=== PATIENT | female | born 1975 | race Caucasian/White ===

== ENCOUNTER 2017-08-30 11:53 | Emergency (ER) | payer BC, OTHER ==
[~2017-08-30] VITALS: Ht 167.6 cm; Wt 117.9 kg
[2017-08-30] MEDS ORDERED: meTOproloL SUCCINATE 50 MG (TOPROL XL) TAB PO SCH (12:15)
[2017-08-30] MEDS ORDERED: cloNIDine 0.1 MG (CATAPRES) TAB PO ONE (12:15)
--- NOTE | 2017-08-30 12:17 | ED Cardiac General ---
History of Present Illness General Chief Complaint: Cardiac/General Problems Stated Complaint: DIZZINESS,HIGH BP History of Present Illness Date Seen by Provider: Aug 30, 2017 Time Seen by Provider: 12:00 Initial Comments 42-year-old female reports feeling the at work. She works at [employer], the aide took her blood pressure and it was 210/130, Accu-Chek was 106. She has no history of hypertension or cardiac diagnoses. She has history of PCO S and thyroid disorder. She is managed by primary care physician in [place], [place]. She's had no previous symptoms similar to this. She did fill symptoms of a sinus infection and started Delsym and Mucinex this morning. 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 children, she is currently going through [employer] for adoption.) NTG SL CHILD AND FAMILY SERVICES WORKER: No ASA po CHILD AND FAMILY SERVICES WORKER: No Associated Systoms: Diaphoresis, Nausea/Vomiting, Syncope, Weakness Allergies and Home Medications Allergies Coded Allergies: gluten (Verified Allergy, Mild, 08/30/17) Review of Systems Constitutional: see HPI, diaphoresis, dizziness, malaise, weakness EENTM: See HPI, Nose Congestion Respiratory: See HPI, Cough Cardiovascular: See HPI, Lightheadedness, Syncope Gastrointestinal: No Symptoms Reported, See HPI Genitourinary: No Symptoms Reported, See HPI Musculoskeletal: no symptoms reported, see HPI Skin: no symptoms reported, see HPI Psychiatric/Neurological: See HPI, Other (increased stress) Endocrine: See HPI, Other (history of easy OS) All Other Systems Reviewed Negative Unless Noted: Yes Past Ocsyyqx-Oanjaa-Wrgxay Hx Patient Social History Recent Foreign Travel: No Contact w/Someone Who Travel: No Reviewed Nursing Assessment Reviewed/Agree w Nursing PMH: Yes Physical Exam Vital Signs Vital Signs - First Documented 08/30/17 08/30/17 12:10 13:46 Temp 97.7 Pulse 97 Resp 20 B/P (MAP) 189/111 (137) Pulse Ox 99 O2 Delivery Room Air Capillary Refill : General Appearance: WD/WN, Anxious HEENT: PERRL/EOMI, TMs Normal, Normal ENT Inspection, Pharynx Normal Neck: Full Range of Motion, Normal Inspection, Non Tender, Supple Respiratory: Chest Non Tender, Lungs Clear, Normal Breath Sounds Cardiovascular: Regular Rate, Rhythm, No Edema, No Murmur Gastrointestinal: Normal Bowel Sounds, Non Tender, Soft Extremity: Normal Capillary Refill, Normal Inspection, Normal Range of Motion, No Pedal Edema Neurologic/Psychiatric: Alert, Oriented x3, No Motor/Sensory Deficits, Normal Mood/Affect Skin: Normal Color, Warm/Dry Progress/Results/Core Measures Results/Orders Lab Results Laboratory Tests Test 08/30/17 12:10 Range/Units White Blood Count 15.5 H 4.3-11.0 10^3/uL Red Blood Count 4.60 4.35-5.85 10^6/uL Hemoglobin 14.4 11.5-16.0 G/DL Hematocrit 42 35-52 % Mean Corpuscular Volume 90 80-99 FL Mean Corpuscular Hemoglobin 31 25-34 PG Mean Corpuscular Hemoglobin Concent 35 32-36 G/DL Red Cell Distribution Width 13.0 10.0-14.5 % Platelet Count 355 130-400 10^3/uL Mean Platelet Volume 9.2 7.4-10.4 FL Neutrophils (%) (Auto) 66 42-75 % Lymphocytes (%) (Auto) 25 12-44 % Monocytes (%) (Auto) 7 0-12 % Eosinophils (%) (Auto) 2 0-10 % Basophils (%) (Auto) 0 0-10 % Neutrophils # (Auto) 10.3 H 1.8-7.8 X 10^3 Lymphocytes # (Auto) 3.9 1.0-4.0 X 10^3 Monocytes # (Auto) 1.1 H 0.0-1.0 X 10^3 Eosinophils # (Auto) 0.3 0.0-0.3 10^3/uL Basophils # (Auto) 0.0 0.0-0.1 10^3/uL Neutrophils % (Manual) 65 % Lymphocytes % (Manual) 26 % Monocytes % (Manual) 6 % Eosinophils % (Manual) 1 % Basophils % (Manual) 0 % Band Neutrophils 1 % Reactive Lymphocytes 1 % Blood Morphology Comment NORMAL Prothrombin Time 14.0 12.2-14.7 SEC INR Comment 1.1 0.8-1.4 Activated Partial Thromboplast Time 29 24-35 SEC Sodium Level 138 135-145 MMOL/L Potassium Level 4.1 3.6-5.0 MMOL/L Chloride Level 104 98-107 MMOL/L Carbon Dioxide Level 25 21-32 MMOL/L Anion Gap 9 5-14 MMOL/L Blood Urea Nitrogen 11 7-18 MG/DL Creatinine 0.85 0.60-1.30 MG/DL Estimat Glomerular Filtration Rate > 60 BUN/Creatinine Ratio 13 Glucose Level 80 70-105 MG/DL Calcium Level 9.3 8.5-10.1 MG/DL Magnesium Level 2.3 1.8-2.4 MG/DL Total Bilirubin 0.3 0.1-1.0 MG/DL Aspartate Amino Transf (AST/SGOT) 26 5-34 U/L Alanine Aminotransferase (ALT/SGPT) 31 0-55 U/L Alkaline Phosphatase 63 40-136 U/L Myoglobin 32.8 10.0-92.0 NG/ML Troponin I < 0.30 <0.30 NG/ML Total Protein 8.1 6.4-8.2 GM/DL Albumin 4.4 3.2-4.5 GM/DL TSH Merrick Testing 0.67 0.35-4.94 UIU/ML My Orders Orders - JED ROMERO Cbc With Automated Diff (08/30/17 12:10) Magnesium (08/30/17 12:10) Chest 1 View, Ap/Pa Only (08/30/17 12:10) Ekg Tracing (08/30/17 12:10) Cardiac Profile 1 (08/30/17 12:10) Comprehensive Metabolic Panel (08/30/17 12:10) Myoglobin Serum (08/30/17 12:10) Protime With Inr (08/30/17 12:10) Partial Thromboplastin Time (08/30/17 12:10) Monitor-Rhythm Ecg Trace Only (08/30/17 12:10) Saline Lock/Iv-Start (08/30/17 12:10) Thyroid Analyzer (08/30/17 12:13) Clonidine Tablet (Catapres Tablet) (08/30/17 12:15) Metoprolol Succinate (Xl) Tab (Toprol Xl (08/30/17 12:15) Aspirin Chewable Tablet (Baby Aspirin Ch (08/30/17 12:30) Manual Differential (08/30/17 12:10) Medications Given in ED Current Medications Medications Dose Ordered Sig/Robby Route Start Time Stop Time Status Last Admin Dose Admin Aspirin 324 mg ONCE ONCE PO 08/30/17 12:30 08/30/17 12:31 DC 08/30/17 12:33 324 MG Clonidine HCl 0.1 mg ONCE ONCE PO 08/30/17 12:15 08/30/17 12:16 DC 08/30/17 12:20 0.1 MG Vital Signs/I&O Vital Sign - Last 12Hours 08/30/17 08/30/17 08/30/17 12:10 12:33 13:46 Temp 97.7 97.7 97.7 Pulse 97 76 Resp 20 20 B/P (MAP) 189/111 (137) 123/67 (137) Pulse Ox 99 O2 Delivery Room Air Room Air Progress Note : Time: 12:00 Progress Note Initial evaluation completed, recommended labs, EKG, aspirin 324 mg and monitoring. 1245 initial labs all essentially normal. A pressure continues to the elevated will give Metroprolol 50 mg by mouth and clonidine 0.1 mg 1315 B/P 120s/80s. Discussed all results with the patient. She does report extreme stress related to that legal system and adoption of her foster children. We discussed stress reduction activities. Encouraged her to follow up with her primary care provider, as he currently prescribes Valium for her to use and there may be more long-term options that she could take for the anxiety and stress. Discharge planning and return precautions reviewed with the patient in detail. All questions answered. ECG Initial ECG Impression Date: Aug 30, 2017 Initial ECG Impression Time: 12:02 Initial ECG Rate: 83 Initial ECG Rhythm: Normal Sinus Initial ECG Intervals: Normal Initial ECG Intervals WI 132, QRS D 84, QT 368, QTC 433. [place] P 23, QRS 36, T 30. Initial ECG Impression: Normal Initial ECG Comparisson: No Previous ECG Available Comment Reviewed with Dr. Colon, concurred with interpretation. Diagnostic Imaging Diagonstic Imaging: Xray Plain Films/CT/US/NM/MRI: chest Comments NAME: MENG WALLER MED REC#: [id number] PT STATUS: REG ER : 1975 PHYSICIAN: JED ROMERO ADMIT DATE: 08/30/17/ER Draft Date of Exam:08/30/17 CHEST 1 VIEW, AP/PA ONLY EXAMINATION: Portable erect AP chest at 12:30 p.m. INDICATION: Dizziness, lightheaded. There are no prior studies available for comparison. FINDINGS: The heart size is within normal limits. The lungs are clear. There is no evidence for failure, pneumonia, or for a pleural effusion. The mediastinum is not widened. The osseous structures are intact. IMPRESSION: There is no evidence for an acute cardiopulmonary abnormality. Dictated on workstation # [id number] Dict: 08/30/17 1256 Trans: 08/30/17 1302 [id number] Interpreted by: MITCH LIZAMA MD Electronically signed by: Reviewed: Reviewed by Me Departure Impression Impression: Primary Impression: Syncopal episodes Qualified Codes: R55 - Syncope and collapse Additional Impressions: Anxiety Hypertension Qualified Codes: I10 - Essential (primary) hypertension Disposition: 01 HOME, SELF-CARE Condition: Improved Departure-Patient Inst. Decision time for Depature: 13:30 Referrals: NO,LOCAL PHYSICIAN (PCP/Family) Primary Care Physician Patient Instructions: High Blood Pressure (DC), Stress Add. Discharge Instructions: Follow-up with your primary care provider and establish care with a local provider. Use Valium as previously prescribed as needed. Follow-up and emergency department for chest pain, difficulty breathing, new problems or concerns. All discharge instructions reviewed with patient and/or family. Voiced understanding. Work/School Note: Work Release Form Date Seen in the Emergency Department: Aug 30, 2017 Return to Work: Aug 31, 2017 Restrictions: No Restrictions JED ROMERO Aug 30, 2017 12:17
[2017-08-30 12:26] LABS: BASOPHILS % (AUTO) 0 % (0-10); EOSINOPHILS # (AUTO) 0.3 10^3/uL (0.0-0.3); EOSINOPHILS % (AUTO) 2 % (0-10); HEMATOCRIT 42 % (35-52); HEMOGLOBIN 14.4 G/DL (11.5-16.0); LYMPHOCYTES # (AUTO) 3.9 X 10^3 (1.0-4.0); LYMPHOCYTES % (AUTO) 25 % (12-44); MEAN CORPUSCULAR HEMOGLOBIN 31 PG (25-34); MEAN CORPUSCULAR HGB CONC 35 G/DL (32-36); MEAN CORPUSCULAR VOLUME 90 FL (80-99); MEAN PLATELET VOLUME 9.2 FL (7.4-10.4); MONOCYTES # (AUTO) 1.1 X 10^3 (0.0-1.0); MONOCYTES % (AUTO) 7 % (0-12); NEUTROPHILS # (AUTO) 10.3 X 10^3 (1.8-7.8); NEUTROPHILS % (AUTO) 66 % (42-75); PLATELET COUNT 355 10^3/uL (130-400); WHITE BLOOD COUNT 15.5 10^3/uL (4.3-11.0)
[2017-08-30] MEDS ORDERED: ASPIRIN 81 MG CHEW (CHILDREN'S ASA) PO ONE (12:30)
[2017-08-30 12:42] LABS: INR 1.1 (0.8-1.4)
[2017-08-30 12:50] LABS: ALANINE AMINOTRANSFERASE 31 U/L (0-55); ALBUMIN 4.4 GM/DL (3.2-4.5); ALKALINE PHOSPHATASE 63 U/L (40-136); BILIRUBIN,TOTAL 0.3 MG/DL (0.1-1.0); BUN/CREATININE RATIO 13; CALCIUM 9.3 MG/DL (8.5-10.1); CARBON DIOXIDE 25 MMOL/L (21-32); CHLORIDE 104 MMOL/L (98-107); CREATININE SERUM 0.85 MG/DL (0.60-1.30); GFR ESTIMATED > 60; GLUCOSE 80 MG/DL (70-105); MAGNESIUM 2.3 MG/DL (1.8-2.4); POTASSIUM 4.1 MMOL/L (3.6-5.0); SODIUM 138 MMOL/L (135-145); TOTAL PROTEIN 8.1 GM/DL (6.4-8.2)
[2017-08-30 12:54] LABS: BAND NEUTROPHILS 1 %; LYMPHOCYTES % (MANUAL) 26 %; NEUTROPHILS % (MANUAL) 65 %
[2017-08-30 12:55] LABS: BASOPHILS % (MANUAL) 0 %; EOSINOPHILS % (MANUAL) 1 %; MONOCYTES % (MANUAL) 6 %; RBC MORPH NORMAL; REACTIVE LYMPHOCYTES 1 %
[2017-08-30 13:01] LABS: MYOGLOBIN SERUM 32.8 NG/ML (10.0-92.0)
--- NOTE | 2017-08-30 13:03 | Diagnostic Imaging Report ---
EXAMINATION: Portable erect AP chest at 12:30 p.m. INDICATION: Dizziness, lightheaded. There are no prior studies available for comparison. FINDINGS: The heart size is within normal limits. The lungs are clear. There is no evidence for failure, pneumonia, or for a pleural effusion. The mediastinum is not widened. The osseous structures are intact. IMPRESSION: There is no evidence for an acute cardiopulmonary abnormality. Dictated by: Dictated on workstation # [id number]
[2017-08-30 13:46] VITALS: BP 123/67
== END 2017-08-30 13:46 | disposition home or self-care (01) ==
LOC: EDUNIT# 11:53 → ER 11:57
DX: I10 Essential (primary) hypertension (principal); F41.9 Anxiety disorder, unspecified; R55 Syncope and collapse
CPT/HCPCS: 36415; 71045; 80053; 83735; 83874; 84443; 84484; 85007; 85027; 85610; 85730; 93005; 93041

== ENCOUNTER → 2017-10-14 | Outpatient (CLI) | payer BC ==
--- NOTE | 2017-10-14 15:18 | Diagnostic Imaging Report ---
PROCEDURE: MR imaging of the brain without contrast. TECHNIQUE: Multiplanar, multisequence MR imaging of the brain was performed without contrast. INDICATION: Migraine headache and syncope. Ventricle and sulci are within normal limits for size. Pillai-white matter signal intensities are unremarkable. There is no abnormal mass effect or shift of midline structures. There is no restricted diffusion to indicate infarct. Visualized paranasal sinuses are clear. There is no evidence of orbital abnormality. No pituitary lesion is identified on the noncontrasted images. IMPRESSION: Unremarkable MRI of the brain. Dictated by: Dictated on workstation # [id number]
== END ==
LOC: RAD 13:53
PROVIDERS: ATTEND Nurse Practitioner Family
DX: G43.909 Migraine, unspecified, not intractable, without status migrainosus (principal); R55 Syncope and collapse
CPT/HCPCS: 70551

== ENCOUNTER → 2017-11-14 | Outpatient (CLI) | payer BC ==
[~2017-11-14] VITALS: Ht 167.6 cm; Wt 121.6 kg
[~2017-11-14] MED LIST: ALLO300T2 PO; ALPR0.5T7 PO; ATOR10TA PO; BUPR300T51 PO; CATHETER FLUSH 10 ML SYR IV PRN; CHOL5000 PO; CPM PO; DEXT1TAB3 PO; IBUP-1780 PO; IBUP-2055 PO; IFLORA PO; LIOT5TAB3 PO; LISI-552 PO; MAGNESIUM PO; MELA5TAB19 PO; METF10002 PO; METO-351 PO; OMEGA PO; SIMILASE PO; SODI1TAB48 PO; SPIR100T PO; THYR65TA5 PO; UBID100C44 PO; [UNRECOGNIZED DRUG - CODE] PO; [UNRECOGNIZED DRUG - OTHER] PO; [UNRECOGNIZED DRUG - OTHER] PO; [UNRECOGNIZED DRUG - OTHER] PO
[2017-11-14 09:41] VITALS: BP 180/70
--- NOTE | 2017-11-14 22:26 | STRESS TEST ---
DATE OF SERVICE: 11/14/2017 EXERCISE MYOVIEW STRESS TEST REPORT REFERRING PHYSICIAN: Dr. Chavarria. Baseline heart rate is 80, baseline blood pressure 114/68. Baseline EKG is sinus rhythm with no ischemic changes. SUMMARY: The patient was injected with 10.27 mCi of technetium-99 Myoview and the resting images were obtained. Then, the patient started exercising with a baseline heart rate, blood pressure and EKG mentioned above. The patient was able to exercise for a total of 7 minutes 15 seconds on a standard Issac protocol. With peak exercise level, EKG was showing minimal nondiagnostic changes. Blood pressure was 192/54. During recovery, heart rate and blood pressure returned to baseline. EKG returned to baseline. The resting and stress images were reviewed and compared in the short axis, horizontal long axis, and vertical long axis views. Review of the images showed breast attenuation with reversible ischemia involving the anterior wall, anterolateral wall and anterior septum. SSS is 13, SDS 7, TID value 0.96. On the gated images, the left ventricle appeared to be normal size with normal contractility. Calculated ejection fraction 70%. CONCLUSION: 1. Good exercise tolerance a total of 7 minutes 15 seconds on the standard Issac protocol, total of 8.7 METS achieving 91% of maximum expected heart rate. 2. Appropriate heart rate and blood pressure response to exercise, returned to baseline during recovery. 3. Minimal nondiagnostic EKG changes with exercise, returned to baseline during recovery. 4. Breast attenuation with reversible ischemia involving the whole anterior wall, anterolateral wall, and part of the anterior septum. 5. Normal left ventricular size with normal contractility. Calculated ejection fraction 70%. Job ID: [id number] DocumentID: [id number] Dictated Date: 11/14/2017 16:43:37 It Security Consultant Date: 11/14/2017 22:25:30 Dictated By: JOSÉ ALCANTAR MD
== END ==
LOC: CARD 07:27
PROVIDERS: ATTEND Internal Medicine Cardiovascular Disease
DX: I10 Essential (primary) hypertension (principal); E78.5 Hyperlipidemia, unspecified; E03.9 Hypothyroidism, unspecified; Z82.49 Family history of ischemic heart disease and other diseases of the circulatory system; Z82.3 Family history of stroke
CPT/HCPCS: 78452; 93017

== ENCOUNTER 2017-11-23 06:36 | Day surgery (SDC) | payer BC ==
[2017-11-23] VITALS (9 sets, daily range): BP systolic 104–139; BP diastolic 59–90
[~2017-11-23] VITALS: Ht 167.6 cm; Wt 118.8 kg
[2017-11-23] MEDS ORDERED: NS IV 1000 ML 3,000 ML ONE (06:44)
[2017-11-23] MEDS ORDERED: NS IV 1000 ML 1,000 ML IV SCH ×2 (07:00→08:51)
[2017-11-23 07:19] LABS: BILIRUBIN,URINE NEGATIVE (NEGATIVE); CLARITY,URINE CLEAR; COLOR,URINE YELLOW; GLUCOSE, URINE (UA) NEGATIVE (NEGATIVE); KETONES,URINE NEGATIVE (NEGATIVE); LEUKOCYTE ESTERASE ,URINE NEGATIVE (NEGATIVE); NITRITE,URINE NEGATIVE (NEGATIVE); PH,URINE 7 (5-9); PROTEIN,URINE NEGATIVE (NEGATIVE); UROBILINOGEN,URINE NORMAL (NORMAL)
[2017-11-23] MEDS ORDERED: ALLO300T2 PO (07:21)
[2017-11-23] MEDS ORDERED: LISI-552 PO (07:21)
[2017-11-23] MEDS ORDERED: SPIR100T PO (07:21)
[2017-11-23] MEDS ORDERED: LIOT5TAB3 PO (07:21)
[2017-11-23] MEDS ORDERED: METO-351 PO (07:21)
[2017-11-23] MEDS ORDERED: THYR65TA5 PO (07:21)
[2017-11-23] MEDS ORDERED: ALPR0.5T7 PO (07:21)
[2017-11-23] MEDS ORDERED: METF10002 PO (07:21)
[2017-11-23] MEDS ORDERED: BUPR300T51 PO (07:21)
[2017-11-23 07:22] LABS: HEMOGLOBIN 13.5 G/DL (11.5-16.0); RED BLOOD COUNT 4.27 10^6/uL (4.35-5.85); RED CELL DISTRIBUTION WIDTH 13.6 % (10.0-14.5); WHITE BLOOD COUNT 12.7 10^3/uL (4.3-11.0)
[2017-11-23] MEDS ORDERED: IFLORA PO (07:34)
[2017-11-23] MEDS ORDERED: [UNRECOGNIZED DRUG - OTHER] PO (07:34)
[2017-11-23] MEDS ORDERED: SODI1TAB48 PO (07:34)
[2017-11-23] MEDS ORDERED: DEXT1TAB3 PO (07:34)
[2017-11-23] MEDS ORDERED: CPM PO (07:34)
[2017-11-23] MEDS ORDERED: OMEGA PO (07:34)
[2017-11-23] MEDS ORDERED: UBID100C44 PO (07:34)
[2017-11-23] MEDS ORDERED: MAGNESIUM PO (07:34)
[2017-11-23] MEDS ORDERED: IBUP-2055 PO (07:34)
[2017-11-23] MEDS ORDERED: MELA5TAB19 PO (07:34)
[2017-11-23] MEDS ORDERED: [UNRECOGNIZED DRUG - OTHER] PO (07:34)
[2017-11-23] MEDS ORDERED: SIMILASE PO (07:34)
[2017-11-23] MEDS ORDERED: [UNRECOGNIZED DRUG - CODE] PO (07:34)
[2017-11-23] MEDS ORDERED: [UNRECOGNIZED DRUG - OTHER] PO (07:34)
[2017-11-23] MEDS ORDERED: CHOL5000 PO (07:34)
[2017-11-23 07:36] LABS: PROTHROMBIN TIME PATIENT 12.9 SEC (12.2-14.7)
[2017-11-23 07:38] LABS: BACTERIA,URINE FEW /HPF; SQUAMOUS EPITHELIAL CELL,UR 25-50 /HPF
[2017-11-23] MEDS ORDERED: HEParin 1000 UNIT/ML (10ML VIAL) FOR BOLUS ONE (07:39)
[2017-11-23] MEDS ORDERED: fentaNYL INJECTION 100 MCG/2 ML AMP ONE (07:39)
[2017-11-23] MEDS ORDERED: MIDAZOLAM 2 MG/2 ML (VERSED) VIAL ONE ×2 (07:39→08:29)
[2017-11-23] MEDS ORDERED: LIDOCAINE 1% INJ 20 ML 20 ML VIAL ONE (07:39)
[2017-11-23] MEDS ORDERED: NITRO DRIP 25000 MCG/D5W 250 ML IV ONE (07:39)
[2017-11-23] MEDS ORDERED: VERAPAMIL 5 MG/2 ML (CALAN) VIAL IV ONE (07:39)
--- NOTE | 2017-11-23 07:48 | Cardiac Procedure Note-CS/ASA ---
Pre-Procedure Note Pre-Op Procedure Note H&P Reviewed The H&P was reviewed, patient examined and no changes noted. Date H&P Reviewed: November 23, 2017 Time H&P Reviewed: 07:48 Conscious Sedation Pre-Proced Time Reviewed: 07:48 ASA Class: 3 Airway Mallampati Classification: (rampart appropriate class) I. II. III, IV Lungs Heart ASA score ASA 1: a normal healthy patient ASA 2: a patient with a mild systemic disease (mid diabetes, controlled hypertension, obesity x ASA 3: a patient with a severe systemic disease that limits activity (angina , COPD, prior Myocardial infarction) ASA 4: a patient with an incapacitating disease that is a constant threat to life (CHF, renal failure) ASA 5: a moribund patient not expected to survive 24 hrs. (ruptured aneurysm) ASA 6: a declared brain patient whose organs are being harvested. For emergent operations, add the letter E after the classification Grade 3 Sedation Plan: Analgesia, Amnesia, Plan communicated to team members, Discussed options with patient/fam, Discussed risks with patient/fam Note The patient is an appropriate candidate to undergo the planned procedure, sedation, and anesthesia. The patient immediately re-assessed prior to indication. JOSÉ ALCANTAR MD November 23, 2017 07:48
[2017-11-23 07:54] LABS: ALANINE AMINOTRANSFERASE 22 U/L (0-55); ALBUMIN 4.4 GM/DL (3.2-4.5); ALKALINE PHOSPHATASE 69 U/L (40-136); BILIRUBIN,TOTAL 0.4 MG/DL (0.1-1.0); BUN/CREATININE RATIO 19; CALCIUM 9.3 MG/DL (8.5-10.1); CARBON DIOXIDE 22 MMOL/L (21-32); CHLORIDE 105 MMOL/L (98-107); CHOLESTEROL 228 MG/DL (< 200); CREATININE SERUM 0.79 MG/DL (0.60-1.30); GFR ESTIMATED > 60; GLUCOSE 96 MG/DL (70-105); HDL CHOLESTEROL 43 MG/DL (40-60); POTASSIUM 4.3 MMOL/L (3.6-5.0); SODIUM 137 MMOL/L (135-145); TOTAL PROTEIN 7.4 GM/DL (6.4-8.2); TRIGLYCERIDES 188 MG/DL (<150); VLDL CHOLESTEROL 38 MG/DL (5-40)
--- NOTE | 2017-11-23 08:35 | Diagnostic Imaging Report ---
INDICATION: Chest pain and dyspnea Frontal chest obtained at 704 hours a.m. and compared to 08/30/17. Heart and mediastinal silhouette are normal in appearance. The lungs are clear. There is no pneumothorax or pleural fluid. IMPRESSION: Negative chest. Dictated by: Dictated on workstation # [id number]
--- NOTE | 2017-11-23 08:54 | Discharge Inst-Post CATH ---
Discharge Inst-CATH Post Cardiac Cath D/C Inst Follow Up/Plan Hold metformin for [address] Hensley's office in 2-4 weeks CARDIAC CATH DISCHARGE INSTRUCTIONS *Hold Metformin for 48 hours post heart cath. ACTIVITY * Go Home directly and rest. * Limit activity of the leg (or wrist if it was used) for 7 days including aerobics, swimming, jogging, bicycling, etc. * Restrict stair-climbing for 7 days if possible, if not, climb up with your non -cath leg, then bring together on the same step. * Avoid lifting, pushing, pulling or excessive movement of the affected extremity for 7 days. * Customary sexual activity may be resumed after 2 days-use caution not to use a position that strains or causes pain to the affected extremity. * No driving for 24 hours. * NO SMOKING. * Avoid straining for bowel movements for 7 days. * Gentle walking on level ground is allowed. * Returning to work will depend on the type of procedure and the results. Your doctor will discuss this with you. CALL YOUR DOCTOR FOR ANY OF THE FOLLOWING: *If bleeding from the puncture site occurs- Apply gentle pressure to site with clean cloth and call your doctor or EMS. * If a knot or lump forms under the skin, increases in size, or causes pain. * If bruising appears to be worsening or moving further down your leg instead of disappearing. * Temperature above 101 F. CARE OF YOUR GROIN INCISION; * Bruising or purple discoloration of the skin near the puncture site is common. * You may shower only, no bathtub bathing for 5 days. Be careful to avoid slipping as your leg may feel stiff. * If a closure device was used on your femoral artery, please see the attached guide regarding care of the device and your leg. * REMOVE the dressing from your groin the next day after your procedure in the shower. CARE OF YOUR WRIST INCISION; * Bruising or purple discoloration of the skin near the puncture site is common. * You may shower. * DO NOT submerge wrist. * Remove dressing in 24 hours. JOSÉ HENSLEY MD November 23, 2017 08:54
--- NOTE | 2017-11-23 08:58 | Cardiac Cath Report ---
Cardiac Cath Report Physician (s)/Boat Hand (s) Physician JOSÉ ALCANTAR MD Pre-Procedure Diagnosis Pre-Procedure Diagnosis: Chest pain, coronary artery disease Post-Procedure Note Procedure Start Date: November 23, 2017 Name of Procedure: Left heart catheterization Findings/Procedure Note PROCEDURE NOTE: After explaining the procedure to the patient, all pros and cons were explained , all questions were answered. The patient signed the consent and then she was placed on the cardiac catheterization laboratory. Groin was prepped SL fashion local anesthesia was used. Sheath placed in the right radial artery. [place] catheter was used for accessing the coronary and the left ventricular cavity, no left ventriculogram was done, pressure was measured, angiogram was done At the end of the procedure the sheath was removed. Closure device with vascular band was used FINDINGS: Hemodynamics LV 100/5, end-diastolic pressure 5 Aorta 87/55 mean of 70 ANATOMY: Left Main is free of obstructive disease Left Anterior Descending is small to moderate in size with no obstructive disease Left Circumflex is large dominant artery with nonobstructive disease Right Coronory Artery is small nondominant artery with no obstructive disease LV Gram was not done, pressure was measured and it was normal CONCLUSION: 1. Large dominant circumflex system with no obstructive disease 2. Small to moderate size LAD with no obstructive disease, small nondominant right coronary artery 3. Normal left ventricular end-diastolic pressure, known to have normal LV function DISCUSSION AND RECOMMENDATION: Chest pain is noncardiac, continue to maximize medical therapy and monitor as an outpatient Anesthesia Type: Conscious Sedation Estimated blood loss (mL): 5 ml Contrast Amount: 35 ml Total Radiation Dose: 316 mGy Post-Procedure Diagnosis Post-operative diagnosis: Chest pain nonspecific etiology Coronary artery disease Hypertension Hyperlipidemia Diabetes mellitus JOSÉ ALCANTAR MD November 23, 2017 08:58
[2017-11-23] MEDS ORDERED: ATOR10TA PO (09:00)
== END 2017-11-23 11:43 | disposition home or self-care (01) ==
LOC: CATH 06:36
PROVIDERS: ATTEND Internal Medicine Cardiovascular Disease
DX: R07.89 Other chest pain (principal); I25.10 Atherosclerotic heart disease of native coronary artery without angina pectoris; I10 Essential (primary) hypertension; E78.5 Hyperlipidemia, unspecified; E11.9 Type 2 diabetes mellitus without complications; M10.9 Gout, unspecified; E28.2 Polycystic ovarian syndrome; Z82.49 Family history of ischemic heart disease and other diseases of the circulatory system; Z87.891 Personal history of nicotine dependence; Z79.899 Other long term (current) drug therapy; Z79.84 Long term (current) use of oral hypoglycemic drugs
CPT/HCPCS: 36415; 71045; 80053; 80061; 81000; 84703; 85027; 85610; 85730; 87081; 93306; 93458

== ENCOUNTER 2017-11-28 17:08 | Emergency (ER) | payer BC ==
[~2017-11-28] VITALS: Ht 167.6 cm; Wt 118.8 kg
[~2017-11-28 17:08] MED LIST changes: -CATHETER FLUSH 10 ML SYR IV PRN; -IBUP-1780 PO
[2017-11-28 19:12] LABS: BASOPHILS % (AUTO) 0 % (0-10); EOSINOPHILS # (AUTO) 0.2 10^3/uL (0.0-0.3); EOSINOPHILS % (AUTO) 2 % (0-10); HEMATOCRIT 41 % (35-52); HEMOGLOBIN 13.8 G/DL (11.5-16.0); LYMPHOCYTES # (AUTO) 4.3 X 10^3 (1.0-4.0); LYMPHOCYTES % (AUTO) 28 % (12-44); MEAN CORPUSCULAR HEMOGLOBIN 32 PG (25-34); MEAN CORPUSCULAR HGB CONC 34 G/DL (32-36); MEAN CORPUSCULAR VOLUME 93 FL (80-99); MEAN PLATELET VOLUME 9.3 FL (7.4-10.4); MONOCYTES # (AUTO) 1.1 X 10^3 (0.0-1.0); MONOCYTES % (AUTO) 7 % (0-12); NEUTROPHILS # (AUTO) 9.7 X 10^3 (1.8-7.8); NEUTROPHILS % (AUTO) 63 % (42-75); PLATELET COUNT 389 10^3/uL (130-400); RED BLOOD COUNT 4.35 10^6/uL (4.35-5.85); RED CELL DISTRIBUTION WIDTH 13.6 % (10.0-14.5); WHITE BLOOD COUNT 15.4 10^3/uL (4.3-11.0)
[2017-11-28 19:27] LABS: INR 0.9 (0.8-1.4); PROTHROMBIN TIME PATIENT 12.1 SEC (12.2-14.7)
[2017-11-28 19:34] LABS: ALANINE AMINOTRANSFERASE 21 U/L (0-55); ALBUMIN 4.7 GM/DL (3.2-4.5); ALKALINE PHOSPHATASE 81 U/L (40-136); BILIRUBIN,TOTAL 0.2 MG/DL (0.1-1.0); BUN/CREATININE RATIO 20; CALCIUM 10.1 MG/DL (8.5-10.1); CARBON DIOXIDE 26 MMOL/L (21-32); CHLORIDE 103 MMOL/L (98-107); GFR ESTIMATED > 60; GLUCOSE 89 MG/DL (70-105); POTASSIUM 4.2 MMOL/L (3.6-5.0); SODIUM 139 MMOL/L (135-145); TOTAL PROTEIN 8.4 GM/DL (6.4-8.2)
[2017-11-28 19:46] LABS: BAND NEUTROPHILS 0 %; BASOPHILS % (MANUAL) 0 %; EOSINOPHILS % (MANUAL) 1 %; LYMPHOCYTES % (MANUAL) 33 %; MONOCYTES % (MANUAL) 2 %; NEUTROPHILS % (MANUAL) 64 %; RBC MORPH NORMAL
--- NOTE | 2017-11-28 21:12 | Diagnostic Imaging Report ---
INDICATION: Right arm pain, swelling, recent heart catheter. COMPARISON: None. TECHNIQUE: Real-time, spectral and color doppler imaging in the right upper extremity arterial system was obtained. FINDINGS: The visualized subclavian, axillary, brachial and ulnar arteries appear normal. The radial artery is patent. However, flow pattern is somewhat diminished. This could be secondary to the Doppler scale. There is no obvious thrombus or occlusion. No pseudoaneurysm or hematoma identified. IMPRESSION: Slightly diminished flow in the distal radial artery. No obvious thrombus, stenosis or acute occlusion is seen. Dictated by: Dictated on workstation # [id number]
--- NOTE | 2017-11-28 21:19 | Diagnostic Imaging Report ---
INDICATION: Left upper extremity swelling and pain COMPARISON: None FINDINGS: Visualized deep and superficial venous system is patent. There is no mass or DVT. IMPRESSION: No DVT identified. Dictated by: Dictated on workstation # [id number]
[2017-11-28] MEDS ORDERED: KETOROLAC 30 MG/ML VIAL IVP ONE (21:30)
[2017-11-28] MEDS ORDERED: IBUP-1780 PO (21:30)
--- NOTE | 2017-11-28 21:30 | ED Upper Extremity ---
General Chief Complaint: Upper Extremity Stated Complaint: SHOOTING PAIN IN FINGERS AND R ARM Nursing Triage Note: PATIENT STATES THAT SHE HAD A HEART CATH LAST WEEK WITH RADIAL ACCESS. SHE HAS STARTED TO HAVE SHOOTING PAINS FROM THE SITE UP HER ARM AND ALSO INTO HER FINGERS. THE SITE IS MILDLY SWOLLEN AND BRUISING IS HEALING. SHE CALLED THAT CARDIOLOGY OFFICE AND WAS TOLD TO COME TO THE ER FOR A POSSIBLE BLOOD CLOT. Nursing Sepsis Screen: No Definite Risk Source: patient Exam Limitations: no limitations History of Present Illness Date Seen by Provider: November 28, 2017 Time Seen by Provider: 18:35 Initial Comments PT ARRIVES VIA POV--STATES SHE WAS SENT HERE BY DR. ALCANTAR'S OFFICE TO CHECK FOR BLOOD CLOT. PT HAD CARDIAC CATH WITH RIGHT RADIAL ACCESS LAST Tuesday11/23/[address] ALCANTAR PT STATES IT WAS DIFFICULT TO ACCESS AND SHE WAS STUCK 9 TIMES IN RIGHT WRIST AREA STATES SHE HAS BEEN HAVING SHARP PAINS THAT COME AND GO TO ANTERIOR ASPECT OF RIGHT FOREARM, AND THEY MOVE AROUND --FROM CATHETERIZATION SITE UP HER FOREARM STATES SHE HAS HAD SWELLING TO HER RIGHT ARM, WELL SOME BRUISING AROUND THE SITE OCCASIONALLY SHE HAS PAIN TO HER RIGHT 4TH FINGER AND OCCASIONALLY HER THUMB WELL. 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 HAINES Allergies and Home Medications Allergies Coded Allergies: gluten (Verified Allergy, Mild, 08/30/17) Home Medications Allopurinol 300 Mg Tablet, 300 MG PO DAILY, (Reported) Alprazolam 0.5 Mg Tablet, 0.5 MG PO BID PRN for ANXIETY, (Reported) Atorvastatin Calcium 10 Mg Tablet, 10 MG PO DAILY Prescribed by: JOSÉ ALCANTAR on 11/23/17 0900 Bergamot 15 Gm Powder, 15 GM PO DAILY, (Reported) Bupropion HCl 300 Mg Tab.er.24h, 300 MG PO DAILY, (Reported) Cholecalciferol (Vitamin D3) 5,000 Unit Capsule, 5,000 UNIT PO DAILY, (Reported) Dextromethorphan HBr/Chlor-Mal 1 Each Tablet, 1 EACH PO PRN PRN for COUGH, ( Reported) Ibuprofen 200 Mg Tablet, 200 MG PO PRN PRN for PAIN-MILD, (Reported) Ibuprofen 800 Mg Tablet, 800 MG PO Q8H PRN for PAIN Prescribed by: PHILLIP TEMPLE on 11/28/17 2130 Liothyronine Sodium 5 Mcg Tablet, 5 MCG PO BID, (Reported) Lisinopril 20 Mg Tablet, 20 MG PO DAILY, (Reported) Melatonin 5 Mg Tab.rapdis, 5 MG PO HS, (Reported) Metoprolol Succinate 25 Mg Tab.er.24h, 25 MG PO DAILY, (Reported) Sodium Bicarbonate/Sodium Cit 1 Each Tablet.eff, 1 EACH PO PRN PRN for INDIGESTION, (Reported) Spironolactone 100 Mg Tablet, 100 MG PO EVERY OTHER DAY, (Reported) Thyroid,Pork 65 Mg Tablet, 65 MG PO BID, (Reported) Ubidecarenone 100 Mg Capsule, 100 MG PO DAILY, (Reported) [Hyd Wilian/Cpm] , 5 ML PO BID PRN for COUGH, (Reported) [Iflora] , 2 CAP PO DAILY, (Reported) [Magnesium] , 150 MG PO DAILY, (Reported) [[place]-3 Plus] , 2 CAP PO DAILY, (Reported) [Similase] , 2 CAP PO AC, (Reported) [Ultranutrient] , 3 CAP PO DAILY, (Reported) Patient Home Medication List Home Medication List Reviewed: Yes Constitutional: see HPI, fever EENTM: see HPI, nose congestion Respiratory: no symptoms reported Cardiovascular: see HPI Gastrointestinal: no symptoms reported Genitourinary: no symptoms reported Musculoskeletal: see HPI Skin: see HPI Psychiatric/Neurological: See HPI Past Mshlnxz-Dvesbq-Jzufmw Hx Patient Social History Alcohol Use: Occasionally Uses Number of Drinks Today: Alcohol Beverage of Choice: Wine Recreational Drug Use: No Smoking Status: Former Smoker Type Used: Cigarettes 2nd Hand Smoke Exposure: No Recent Foreign Travel: No Contact w/Someone Who Travel: No Recent Infectious Disease Expo: No Recent Hopitalizations: No Physical Abuse: No Sexual Abuse: No Immunizations Up To Date Date of Influenza Vaccine: Apr 13, 2017 Seasonal Allergies Seasonal Allergies: Yes Past Medical History Surgeries: Yes (CARDIAC CATH 11/23/17--DR. ALCANTAR--NO INTERVENTION) Tonsillectomy Respiratory: Yes (URI'S) Cardiac: Yes (NEGATIVE CARDIAC CATH 11/23/17) Hypertension Neurological: Yes Headaches /Migraines Female Reproductive Disorders: Polycystic Ovarian Dis Genitourinary: No Gastrointestinal: Yes (GLUTEN INTOLERANCE) Musculoskeletal: Yes Back Injury, Gout Endocrine: Yes Hypothyroidsim HEENT: No Cancer: No Psychosocial: Yes Anxiety Nursing Suicide Risk Score: 0 Integumentary: No Physical Exam Vital Signs Vital Signs - First Documented 11/28/17 18:00 Temp 97.9 Pulse 78 Resp 18 B/P (MAP) 155/85 (108) Pulse Ox 93 Capillary Refill : Less Than 3 Seconds General Appearance: WD/WN, no apparent distress Cardiovascular: normal peripheral pulses, regular rate, rhythm, no JVD, no murmur Respiratory: normal breath sounds, no respiratory distress, no accessory muscle use Shoulder: normal inspection Elbow/Forearm: Right (RIGHT FOREARM AND UPPER ARM WITH MILD SWELLING. MILD OLD- APPEARING BRUISING AROUND PUNCTURE SITES FOR CARDIAC CATH . NO REDNESS, NO DRAINAGE. NO STREAKS. NO AREAS OF FLUCTUANCE. MOTOR/SENSORY/VASCULAR INTACT. PULSES INTACT. 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 NO CLOT OR PSEUDOANEURYSM. PER RADIOLOGIST REPORT @ 2119 Reviewed: Reviewed by Me Departure Communication (Admissions) 2120--SPOKE WITH DR. ALCANTAR. HE ADVISES IBUPROFEN 800 MG Q 6 HOURS AND HE WILL SEE IN OFFICE ON TUESDAY. Impression Primary Impression: Pain and swelling of right upper extremity Additional Impression: S/P cardiac catheterization Disposition: 01 HOME, SELF-CARE Condition: Stable Departure-Patient Inst. Referrals: GALDINO HAINES MD (PCP/Family) Primary Care Physician JOSÉ ALCANTAR MD Patient Instructions: Postoperative Pain (DC) Add. Discharge Instructions: ELEVATE ARM MUCH POSSIBLE WIGGLE FINGERS FREQUENTLY ACTIVITIES TOLERATED FOLLOW UP WITH DR. ALCANTAR ON TUESDAY--CALL IN AM FOR APPOINTMENT RETURN TO ER IF SYMPTOMS WORSEN All discharge instructions reviewed with patient and/or family. Voiced understanding. Scripts Ibuprofen (Ibuprofen) 800 Mg Tablet 800 MG PO Q8H PRN for PAIN, #30 TAB Prov: PHILLIP TEMPLE DO 11/28/17 PHILLIP TEMPLE DO November 28, 2017 21:30
[2017-11-28 21:37] VITALS: BP 155/85
== END 2017-11-28 21:37 | disposition home or self-care (01) ==
LOC: EDUNIT# 17:08 → ER 17:10
DX: M79.89 Other specified soft tissue disorders (principal); M79.601 Pain in right arm; I10 Essential (primary) hypertension; G43.909 Migraine, unspecified, not intractable, without status migrainosus; Z87.448 Personal history of other diseases of urinary system; Z87.891 Personal history of nicotine dependence; Z90.89 Acquired absence of other organs; Z98.890 Other specified postprocedural states
CPT/HCPCS: 36415; 80053; 85007; 85027; 85610; 85730; 93931; 96374

== ENCOUNTER → 2018-06-21 | Outpatient (CLI) | payer BC ==
[~2018-06-21] MED LIST changes: +IBUP-1780 PO; +METF-399 PO; -METF10002 PO
[2018-06-21 10:43] LABS: ABSOLUTE RETIC # 58 10e9/L (24-90); BASOPHILS % (AUTO) 0 % (0-10); EOSINOPHILS # (AUTO) 0.2 10^3/uL (0.0-0.3); EOSINOPHILS % (AUTO) 1 % (0-10); HEMATOCRIT 40 % (35-52); HEMOGLOBIN 13.3 G/DL (11.5-16.0); LYMPHOCYTES # (AUTO) 2.9 X 10^3 (1.0-4.0); LYMPHOCYTES % (AUTO) 24 % (12-44); MEAN CORPUSCULAR HEMOGLOBIN 32 PG (25-34); MEAN CORPUSCULAR HGB CONC 34 G/DL (32-36); MEAN CORPUSCULAR VOLUME 94 FL (80-99); MEAN PLATELET VOLUME 8.9 FL (7.4-10.4); MONOCYTES # (AUTO) 0.8 X 10^3 (0.0-1.0); MONOCYTES % (AUTO) 6 % (0-12); NEUTROPHILS # (AUTO) 8.2 X 10^3 (1.8-7.8); NEUTROPHILS % (AUTO) 68 % (42-75); PLATELET COUNT 391 10^3/uL (130-400); RED BLOOD COUNT 4.21 10^6/uL (4.35-5.85); RED CELL DISTRIBUTION WIDTH 13.3 % (10.0-14.5); RETICULOCYTE % 1.37 % (0.50-2.40)
[2018-06-21 11:24] LABS: BAND NEUTROPHILS 1 %; BASOPHILS % (MANUAL) 0 %; EOSINOPHILS % (MANUAL) 2 %; LYMPHOCYTES % (MANUAL) 15 %; MONOCYTES % (MANUAL) 4 %; NEUTROPHILS % (MANUAL) 70 %
[2018-06-21 11:25] LABS: PLATELET CLUMPS SLIGHT; POIKILOCYTOSIS SLIGHT; REACTIVE LYMPHOCYTES 8 %; ROULEAUX SLIGHT; SMUDGE CELLS SLIGHT; STOMATOCYTES SLIGHT
--- NOTE | 2018-06-21 11:25 | Diagnostic Imaging Report ---
EXAMINATION: Lumbar spine. INDICATION: Back pain TECHNIQUE: AP, lateral and spot lateral views were obtained. COMPARISON: There are no prior studies available for comparison. FINDINGS: The lateral view shows the vertebral body heights and alignment to be within normal limits and the intervertebral spaces to be fairly well-maintained. There is no fracture or acute bony abnormality noted. There is no sign of a paraspinal mass. There is moderate sclerosis of the right sacroiliac joint and mild sclerosis of the left sacroiliac joint. The hip joints are well-maintained. IMPRESSION: 1. There is no evidence for an acute bony abnormality. 2. If there is clinical concern regarding spinal stenosis or nerve root encroachment, then MRI would be recommended for further study. Dictated by: Dictated on workstation # [id number]
[2018-06-21 11:26] LABS: TOXIC GRANULATION/VACUOLAZATIO 1+
== END ==
LOC: RAD 09:57
PROVIDERS: ATTEND Nurse Practitioner Family
DX: D72.829 Elevated white blood cell count, unspecified (principal); M54.5 Low back pain
CPT/HCPCS: 36415; 72100; 85007; 85027; 85045

== ENCOUNTER → 2018-06-21 | Outpatient (CLI) | payer BC ==
--- NOTE | 2018-06-21 12:42 | Diagnostic Imaging Report ---
EXAMINATION: Pelvic ultrasound. INDICATION: Polycystic ovaries, menorrhagia. FINDINGS: There are no prior studies available for comparison. The uterus is nongravid and not enlarged measuring 7.1 x 4.3 x 3.8 cm. The endometrial lining is not thickened measuring 4 mm. There is no focal mass involving the uterus to suggest a fibroid. Both ovaries are identified. There is good blood flow to each ovary and there is no sign of torsion. There is a 2.5 x 3.1 x 2.4 cm benign-appearing cyst arising from the left ovary. The right ovary is generally unremarkable and there is no solid pelvic mass or free fluid collection noted. IMPRESSION: There is a 2.5 x 3.1 x 2.4 cm benign-appearing cyst arising from the left ovary. There is no acute pelvic abnormality noted otherwise. Dictated by: Dictated on workstation # [id number]
--- NOTE | 2018-06-21 13:10 | Diagnostic Imaging Report ---
EXAMINATION: Digital mammogram bilateral screening with 3D tomosynthesis and computer-aided detection (CAD) system. INDICATION: Screening. This is the patient's baseline study. At this time, there are no current complaints. FINDINGS: There are scattered fibroglandular densities in both breasts which could obscure a lesion. There is no primary or secondary sign of malignancy noted. IMPRESSION: 1. There is no evidence for malignancy. 2. The patient should have her annual bilateral screening mammogram on schedule in June of 2019. ACR BI-RADS Category 1: Negative. Result letter will be mailed to the patient. Note: At least 10% of breast cancer is not imaged by mammography. Dictated by: Dictated on workstation # [id number]
== END ==
LOC: RAD 09:54
PROVIDERS: ATTEND Obstetrics & Gynecology
DX: Z12.31 Encounter for screening mammogram for malignant neoplasm of breast (principal); N83.202 Unspecified ovarian cyst, left side; E28.2 Polycystic ovarian syndrome; Z87.42 Personal history of other diseases of the female genital tract
CPT/HCPCS: 76830; 76856; 77067

== ENCOUNTER → 2018-06-29 | Outpatient (CLI) | payer BC ==
--- NOTE | 2018-06-29 09:15 | Diagnostic Imaging Report ---
PROCEDURE: MRI lumbar spine. TECHNIQUE: Multiplanar, multisequence MRI of the lumbar spine was performed without contrast. INDICATION: Low back pain. FINDINGS: Lumbar spinal curvature and alignment are unremarkable. Vertebral body heights and disc spaces are maintained. There is diffuse annular bulging and right lateral protrusion of the L5-S1 disc which results in moderate right lateral recess and neural foraminal stenosis. There is also associated degenerative facet arthropathy at this level which causes mild left neural foraminal stenosis. Annular bulging is also present at the L4-L5 and L3-L4 levels without significant spinal or neural foraminal stenosis. There is no marrow signal abnormality to indicate fracture. Conus medullaris is unremarkable at the T12 level. IMPRESSION: Right lateral protrusion of L5-S1 disc is associated with annular bulging and bilateral facet arthropathy. This results in moderate right lateral recess and neural foraminal stenosis with mild left neural foraminal stenosis. There is also mild annular bulging of L3-L4 and L4-L5 disc without significant stenosis. Dictated by: Dictated on workstation # [id number]
== END ==
LOC: RAD 07:36
PROVIDERS: ATTEND Nurse Practitioner Family
DX: M51.27 Other intervertebral disc displacement, lumbosacral region (principal); M46.87 Other specified inflammatory spondylopathies, lumbosacral region; M48.07 Spinal stenosis, lumbosacral region
CPT/HCPCS: 72148

== ENCOUNTER 2018-07-05 05:45 | Outpatient (CLI) | payer BC ==
[~2018-07-05] VITALS: Ht 167.6 cm; Wt 131.1 kg
[2018-07-05] MEDS ORDERED: METF-399 PO (14:19)
[2018-07-05] MEDS ORDERED: VILA40TA PO (14:19)
[2018-07-07] MEDS ORDERED: IBUP-1780 PO (12:07)
[2018-07-07] MEDS ORDERED: ACHD5005 PO (12:08)
== END 2018-07-05 14:37 | disposition home or self-care (01) ==
LOC: PREOP 05:45
PROVIDERS: ATTEND Obstetrics & Gynecology
DX: Z01.818 Encounter for other preprocedural examination (principal)

== ENCOUNTER 2018-07-07 09:29 | Day surgery (SDC) | payer BC ==
[~2018-07-07] VITALS: Ht 167.6 cm; Wt 131.1 kg
[~2018-07-07 09:29] MED LIST changes: +VILA40TA PO
--- OUTSIDE RECORDS SUMMARY | 2018-07-07 09:33 | XMS REPORT | CCD ---
Author Author [facility] Address [address] [place] [address] Phone Care Team Providers Care Cushion Maker Name Role Phone PP Unavailable CCM Unavailable Summary Purpose Interface Exchange Insurance Providers Payer name Policy type / Coverage type Covered alliance party ID Effective Begin Date Effective End Date [facility] [employer]/[facility] [id number] 2017 Unknown Family history Mother Diagnosis Age At Onset Hypertension Unknown Arthritis Unknown Father Diagnosis Age At Onset Hyperlipidemia Unknown Hypertension Unknown Social History Social History Element Codes Description Effective Dates Marital status Unknown Single 09/05/2017 Number of children Unknown 0 09/05/2017 Allergies, Adverse Reactions, Alerts Substance Reaction Codes Entered Date Inactivated Date Status Gluten Unknown 09/05/2017 No Inactive Date Active NO KNOWN DRUG ALLERGIES Unknown 09/05/2017 No Inactive Date Active Past Medical History Illness Codes Condition Status Onset Date Resolved Date Encounter for screening mammogram for malignant neoplasm of breast ICD-9: V76.10 ICD-10: Z12.31 Active 06/23/2018 Unknown Elevated white blood cell count, unspecified ICD-9: 288.60 ICD-10: D72.829 Active 06/06/2018 Unknown Dysuria ICD-9: 788.1 ICD-10: R30.0 Active 05/08/2018 Unknown Essential (primary) hypertension ICD-9: 401.1 ICD-10: I10 Active 09/05/2017 Unknown Generalized anxiety disorder ICD-9: 300.00 ICD-10: F41.1 Active 09/05/2017 Unknown Impacted cerumen, left ear ICD-9: 380.4 ICD-10: H61.22 Active 05/24/2018 Unknown Low back pain ICD-9: 724.2 ICD-10: M54.5 Active 05/08/2018 Unknown Major depressive disorder, single episode, moderate ICD-9: 296.22 ICD-10: F32.1 Active 09/05/2017 Unknown Polycystic ovarian syndrome ICD-9: 256.4 ICD-10: E28.2 Active 05/08/2018 Unknown Other fatigue ICD-9: 780.79 ICD-10: R53.83 Active 09/20/2017 Unknown Other malaise ICD-9: 780.79 ICD-10: R53.81 Active 09/20/2017 Unknown Other specified hypothyroidism ICD-9: 244.8 ICD-10: E03.8 Active 02/28/2018 Unknown Hypothryroidism Unknown Active 01/23/2018 Unknown Hypothyroidism, unspecified ICD-9: 244.9 ICD-10: E03.9 Active 01/23/2018 Unknown Other acute sinusitis ICD-9: 461.8 ICD-10: J01.80 Active 10/25/2017 Unknown Other allergic rhinitis ICD-9: 477.8 ICD-10: J30.89 Active 10/25/2017 Unknown Problems Condition Codes Effective Dates Condition Status Encounter for screening mammogram for malignant neoplasm of breast ICD-9: V76.10 ICD-10: Z12.31 06/23/2018 Active Elevated white blood cell count, unspecified ICD-9: 288.60 ICD-10: D72.829 06/06/2018 Active Dysuria ICD-9: 788.1 ICD-10: R30.0 05/08/2018 Active Essential (primary) hypertension ICD-9: 401.1 ICD-10: I10 09/05/2017 Active Generalized anxiety disorder ICD-9: 300.00 ICD-10: F41.1 09/05/2017 Active Impacted cerumen, left ear ICD-9: 380.4 ICD-10: H61.22 05/24/2018 Active Low back pain ICD-9: 724.2 ICD-10: M54.5 05/08/2018 Active Major depressive disorder, single episode, moderate ICD-9: 296.22 ICD-10: F32.1 09/05/2017 Active Polycystic ovarian syndrome ICD-9: 256.4 ICD-10: E28.2 05/08/2018 Active Other fatigue ICD-9: 780.79 ICD-10: R53.83 09/20/2017 Active Other malaise ICD-9: 780.79 ICD-10: R53.81 09/20/2017 Active Other specified hypothyroidism ICD-9: 244.8 ICD-10: E03.8 02/28/2018 Active Hypothryroidism Unknown 01/23/2018 Active Hypothyroidism, unspecified ICD-9: 244.9 ICD-10: E03.9 01/23/2018 Active Other acute sinusitis ICD-9: 461.8 ICD-10: J01.80 10/25/2017 Active Other allergic rhinitis ICD-9: 477.8 ICD-10: J30.89 10/25/2017 Active Medications Medication Codes Instructions Start Date Stop Date Status Fill Instructions naproxen 500 mg tablet RxNorm: 403014 1 Tablet(s) PO BID 201706/30/2018 Active naproxen 500 mg tablet RxNorm: 312757 1 Tablet(s) PO BID 201706/25/2018 Inactive Viibryd 40 mg tablet RxNorm: 5649083 1 TABLET(S) PO DAILY 06/1909/16/2018 Active Viibryd 40 mg tablet RxNorm: 0254441 1 Tablet(s) PO daily 05/2206/18/2018 Inactive Viibryd 40 mg tablet RxNorm: 3374671 1 Tablet(s) PO daily 05/2205/21/2018 Inactive tramadol 50 mg tablet RxNorm: 575632 1 Tablet(s) PO QID as needed for pain 05/11/2018 05/15/2018 Inactive Cipro 500 mg tablet RxNorm: 112911 1 Tablet(s) PO BID 201705/20/2018 Inactive Diflucan 150 mg tablet RxNorm: 710851 1 Tablet(s) PO daily 07/201705/17/2018 Inactive Cipro 500 mg tablet RxNorm: 433965 1 Tablet(s) PO BID 201705/10/2018 Inactive Xanax 0.5 mg tablet RxNorm: 116528 1 Tablet(s) PO BID as needed 05/08/2018 08/05/2018 Active naproxen 500 mg tablet RxNorm: 971507 1 Tablet(s) PO BID 201705/12/2018 Inactive baclofen 10 mg tablet RxNorm: 496911 1 Tablet(s) PO TID as needed muscle spasms 05/08/2018 05/12/2018 Inactive lisinopril 20 mg tablet RxNorm: 360188 1 TABLET(S) PO DAILY 02/201810/13/2018 Active Prozac 20 mg capsule RxNorm: 784622 2 CAPSULE(S) PO DAILY 04/1705/16/2018 Inactive Prozac 20 mg capsule RxNorm: 831303 3 Capsule(s) PO daily 03/0204/30/2018 Inactive fluoxetine 60 mg tablet RxNorm: 6621342 1 Tablet(s) PO daily 03/01/2018 Inactive Xanax 0.5 mg tablet RxNorm: 932432 1 Tablet(s) PO BID as needed 02/27/2018 05/07/2018 Inactive Prozac 20 mg capsule RxNorm: 217998 2 Capsule(s) PO daily 02/2003/01/2018 Inactive Prozac 20 mg capsule RxNorm: 446712 1 Capsule(s) PO daily x 1 week then 2 pills daily 01/23/2018 02/19/2018 Inactive Wellbutrin XL 150 mg 24 hr tablet, extended release RxNorm: 287386 1 Tablet(s) PO UD 01/23/2018 05/09/2018 Inactive Xanax 0.5 mg tablet RxNorm: 840441 1 Tablet(s) PO BID 201702/26/2018 Inactive metoprolol succinate ER 25 mg tablet,extended release 24 hr RxNorm: 586268 1 Tablet(s) PO daily 10/31/2017 11/29/2017 Inactive ceftriaxone 500 mg solution for injection RxNorm: 9212590 Inj 10/25/2017 10/25/2017 Inactive Keflex 500 mg capsule RxNorm: 657995 1 Capsule(s) PO TID 201710/31/2017 Inactive Diflucan 150 mg tablet RxNorm: 959975 1 Tablet(s) PO daily 10/31/2017 Inactive Kenalog 40 mg/mL suspension for injection RxNorm: 5942837 Milliliter(s) Inj 10/25/2017 10/25/2017 Inactive Xanax 0.5 mg tablet RxNorm: 953281 1 Tablet(s) PO BID 201712/18/2017 Inactive lisinopril 20 mg tablet RxNorm: 313202 1 TABLET(S) PO DAILY 06/201804/16/2018 Inactive Xanax 0.5 mg tablet RxNorm: 810412 1 Tablet(s) PO BID 201710/18/2017 Inactive lisinopril 20 mg tablet RxNorm: 737797 1 Tablet(s) PO daily 10/19/2017 Inactive Xanax 0.25 mg tablet RxNorm: 693174 1 Tablet(s) PO BID as needed 09/05/2017 09/13/2017 Inactive lisinopril 10 mg tablet RxNorm: 105360 1 Tablet(s) PO daily 09/13/2017 Inactive bupropion HCl XL 300 mg 24 hr tablet, extended release RxNorm: 761484 1 Tablet(s) PO daily 09/05/2017 02/15/2018 Inactive spironolactone 100 mg tablet RxNorm: 097254 1 Tablet(s) PO daily No Start Date Active magnesium oral RxNorm : 6574 oral No Start Date Active Vitamin D3 5,000 unit tablet RxNorm: 895584 1 Tablet(s) PO daily No Start Date Active allopurinol 300 mg tablet RxNorm: 326281 1 Tablet(s) PO daily No Start Date Active liothyronine 5 mcg tablet RxNorm: 451506 1 Tablet(s) PO QAM and 1 early afternoon No Start Date Active metformin 1,000 mg tablet RxNorm: 449872 1 Tablet(s) PO daily No Start Date Active Nature Thyroid 60 mg tablet RxNorm: 630353 1 Tablet(s) PO QAM and 1 early afternoon No Start Date Active Medication Administered Medication Codes Instructions Start Date Status ceftriaxone 500 mg solution for injection RxNorm: 8529701 10/25/2017 No longer Active Kenalog 40 mg/mL suspension for injection RxNorm: 8124857 Milliliter 10/25/2017 No longer Active Immunizations No Immunization data Assessments Condition Codes Effective Dates Encounter for screening mammogram for malignant neoplasm of breast ICD-10: Z12.31 ICD-9: V76.10 06/23/2018 Elevated white blood cell count, unspecified ICD-10: D72.829 ICD-9: 288.60 06/06/2018 Low back pain ICD-10: M54.5 ICD-9: 724.2 05/24/2018 Essential (primary) hypertension ICD-10: I10 ICD-9: 401.1 05/24/2018 Impacted cerumen, left ear ICD-10: H61.22 ICD-9: 380.4 05/24/2018 Major depressive disorder, single episode, moderate ICD-10: F32.1 ICD-9: 296.22 05/24/2018 Generalized anxiety disorder ICD-10: F41.1 ICD-9: 300.00 05/24/2018 Dysuria ICD-10: R30.0 ICD-9: 788.1 05/08/2018 Polycystic ovarian syndrome ICD-10: E28.2 ICD-9: 256.4 05/08/2018 Other fatigue ICD-10: R53.83 ICD-9: 780.79 02/28/2018 Other malaise ICD-10: R53.81 ICD-9: 780.79 02/28/2018 Other specified hypothyroidism ICD-10: E03.8 ICD-9: 244.8 02/28/2018 Other acute sinusitis ICD-10: J01.80 ICD-9: 461.8 10/25/2017 Other allergic rhinitis ICD-10: J30.89 ICD-9: 477.8 10/25/2017 Reason For Visit Reason For Visit Effective Dates Notes medication follow up 05/24/2018 prozac back pain 05/08/2018 prozac medication follow up 02/28/2018 medication follow up 01/23/2018 sinus congestion 10/25/2017 hypertension 09/20/2017 anxiety 09/05/2017 Results Observation Observation Code Item Item Code Result Date Cbc With Differential Ord2 WBC 13.62 K/ul 06/14/2018 Cbc With Differential Ord2 RBC 4.18 M/ul 06/14/2018 Cbc With Differential Ord2 HGB 13.3 g/dl 06/14/2018 Cbc With Differential Ord2 HCT 39.8 % 06/14/2018 Cbc With Differential Ord2 Neut% 68.6 % 06/14/2018 Cbc With Differential Ord2 MCV 95.2 fl 06/14/2018 Cbc With Differential Ord2 Lymph% 24.5 % 06/14/2018 Cbc With Differential Ord2 MCH 31.8 pg 06/14/2018 Cbc With Differential Ord2 [place]% 5.6 % 06/14/2018 Cbc With Differential Ord2 MCHC 33.4 pg 06/14/2018 Cbc With Differential Ord2 Eos% 1.2 % 06/14/2018 Cbc With Differential Ord2 PLT 401 K/ul 06/14/2018 Cbc With Differential Ord2 Baso% 0.1 % 06/14/2018 Cbc With Differential Ord2 RDW 13.5 % 06/14/2018 Cbc With Differential Ord2 Neut ABS# 9.33 K/ul 06/14/2018 Cbc With Differential Ord2 Lymph ABS# 3.34 K/ul 06/14/2018 Cbc With Differential Ord2 [place] ABS# 0.8 K/ul 06/14/2018 Cbc With Differential Ord2 Eos ABS# 0.2 K/ul 06/14/2018 Cbc With Differential Ord2 Baso ABS# 0.0 K/ul 06/14/2018 Comp Metabolic Xkx516 NA 137 mEq/L 05/24/2018 Comp Metabolic Boe646 K 4.3 mEq/L 05/24/2018 Comp Metabolic Hgh030 CL 99 mEq/L 05/24/2018 Comp Metabolic Yhq086 CO2 29.0 mEq/L 05/24/2018 Comp Metabolic Bye091 ANION GAP 13 05/24/2018 Comp Metabolic Muu311 GLUCOSE 85 mg/dL 05/24/2018 Comp Metabolic Gqd347 Creat 0.7 mg/dL 05/24/2018 Comp Metabolic Opa710 eGFR 94 ml/min/1.73m2 05/24/2018 Comp Metabolic Rri905 BUN 18 mg/dL 05/24/2018 Comp Metabolic Fjw311 B/C Ratio 25.0 Ratio 05/24/2018 Comp Metabolic Mzu729 CALCIUM 9.8 mg/dL 05/24/2018 Comp Metabolic Xfp994 ALK PHOS 67 U/L 05/24/2018 Comp Metabolic Uro278 AST(SGOT) 19 U/L 05/24/2018 Comp Metabolic Seq376 ALT(SGPT) 20 U/L 05/24/2018 Comp Metabolic Kpx191 BILI T 0.3 mg/dL 05/24/2018 Comp Metabolic Pjf666 ALBUMIN 4.4 g/dL 05/24/2018 Comp Metabolic Foc757 TPRO 7.4 g/dL 05/24/2018 Comp Metabolic Fep884 GLOB 3.0 g/dL 05/24/2018 Comp Metabolic Roa683 A/G Ratio 1.5 Ratio 05/24/2018 Comp Metabolic Uot487 Osmo 275 mOsmo 05/24/2018 Lipid Ord30 CHOL 164 mg/dL 05/24/2018 Lipid Ord30 HDL 43.0 mg/dl 05/24/2018 Lipid Ord30 TRIG 164 mg/dL 05/24/2018 Lipid Ord30 LDL 88 mg/dL 05/24/2018 Lipid Ord30 C/HDL 3.8 Ratio 05/24/2018 Cbc With Differential Ord2 WBC 16.78 K/ul 05/24/2018 Cbc With Differential Ord2 RBC 4.26 M/ul 05/24/2018 Cbc With Differential Ord2 HGB 13.5 g/dl 05/24/2018 Cbc With Differential Ord2 Neut% 73.0 % 05/24/2018 Cbc With Differential Ord2 HCT 40.6 % 05/24/2018 Cbc With Differential Ord2 MCV 95.3 fl 05/24/2018 Cbc With Differential Ord2 Lymph% 20.7 % 05/24/2018 Cbc With Differential Ord2 MCH 31.7 pg 05/24/2018 Cbc With Differential Ord2 [place]% 5.1 % 05/24/2018 Cbc With Differential Ord2 MCHC 33.3 pg 05/24/2018 Cbc With Differential Ord2 Eos% 1.1 % 05/24/2018 Cbc With Differential Ord2 Baso% 0.1 % 05/24/2018 Cbc With Differential Ord2 PLT 383 K/ul 05/24/2018 Cbc With Differential Ord2 Neut ABS# 12.24 K/ul 05/24/2018 Cbc With Differential Ord2 RDW 14.0 % 05/24/2018 Cbc With Differential Ord2 Lymph ABS# 3.47 K/ul 05/24/2018 Cbc With Differential Ord2 [place] ABS# 0.9 K/ul 05/24/2018 Cbc With Differential Ord2 Eos ABS# 0.2 K/ul 05/24/2018 Cbc With Differential Ord2 Baso ABS# 0.0 K/ul 05/24/2018 Culture Urine [id number] URINE CULTURE SEE NOTES 05/11/2018 Culture Urine [id number] Continued Results 05/11/2018 Urine Culture Ucult Complete >100,000 col/ml aerobic growth sent to ref lab 05/09/2018 Total T3 Ord42 TT3 2.60 ng/ml 02/28/2018 Free T4 Lwf172 FREE T4 0.85 ng/dL 02/28/2018 Tsh Ord6 TSH (3rd IS) 1.89 uIU/mL 02/28/2018 %Hba1C Xsl023 % HbA1c 73948-5 5.7 % 02/28/2018 %Hba1C Dsq853 Gluc Ave 117 mg/dL 02/28/2018 Lymes Disease Total Antibodies With Western Blot Reflex [id number] B. BURGDORFERI, IGG/IGM 0.139 09/26/2017 Lymes Disease Total Antibodies With Western Blot Reflex [id number] 09/26/2017 [place] Spotted Fever Igg/Igm 035442 [place] SPOTTED FEVER IGM EIA . 09/24/2017 [place] Spotted Fever Igg/Igm 334454 RMSF, IGM 0.28 index 09/24/2017 [place] Spotted Fever Igg/Igm 564507 [place] SPOTTED FEVER IGG EIA FLEX . 09/24/2017 [place] Spotted Fever Igg/Igm 019041 RMSF, IGG SCREEN-FLEX Negative 09/24/2017 Ehrlichia Chaffeensis Antibody Igm [id number] EHRLICHIA CHAFFEENSIS IGM < 1:16 09/22/2017 Ehrlichia Chaffeensis Antibody Igg [id number] EHRLICHIA CHAFFEENSIS IGG <1:64 09/22/2017 [place] [id number] SABIHA (BLAIR) SCREEN NONE DETECTED 09/21/2017 Ra Factor Urp760 RA FACTOR <10 IU/ml 09/20/2017 Free T4 Mcg368 FREE T4 0.65 ng/dL 09/20/2017 Sed Rate Ord21 ESR 24 mm/hr 09/20/2017 C-Reactive Protein Qnt Crqnt CRP 0.8 mg/dl 09/20/2017 Review of Systems System Result Effective Dates Constitutional No recent illness 2017 Constitutional No chills 05/24/2018 Constitutional No diaphoresis 05/24/2018 Constitutional fatigue 05/24/2018 Constitutional No fever 05/24/2018 Eyes No eye erythema 05/24/2018 Ears/Nose/Throat/Neck No nasal allergies 05/24/2018 Ears/Nose/Throat/Neck No nasal discharge 05/24/2018 Cardiovascular No chest pain/pressure Cardiovascular No dyspnea 05/24/2018 Respiratory No chest congestion 2017 Respiratory No cough 05/24/2018 Gastrointestinal No abdominal pain 2017 Dermatologic No rash 05/24/2018 Neurologic No alteration of consciousness 05/24/2018 Neurologic No mental status change 2017 Psychiatric anxiety 05/24/2018 Psychiatric depression 05/24/2018 Psychiatric No suicidality 05/24/2018 Musculoskeletal back pain 05/24/2018 Constitutional No recent illness 2017 Constitutional No chills 05/08/2018 Constitutional No diaphoresis 05/08/2018 Constitutional fatigue 05/08/2018 Constitutional No fever 05/08/2018 Eyes No eye erythema 05/08/2018 Ears/Nose/Throat/Neck No nasal allergies 05/08/2018 Ears/Nose/Throat/Neck No nasal discharge 05/08/2018 Cardiovascular No chest pain/pressure Cardiovascular No dyspnea 05/08/2018 Respiratory No chest congestion 2017 Respiratory No cough 05/08/2018 Gastrointestinal No abdominal pain 2017 Dermatologic No rash 05/08/2018 Neurologic No alteration of consciousness 05/08/2018 Neurologic No mental status change 2017 Psychiatric anxiety 05/08/2018 Psychiatric depression 05/08/2018 Psychiatric No suicidality 05/08/2018 Endocrine sweating 05/08/2018 Constitutional No recent illness 2017 Constitutional No chills 02/28/2018 Constitutional No diaphoresis 02/28/2018 Constitutional No fever 02/28/2018 Eyes No eye erythema 02/28/2018 Ears/Nose/Throat/Neck No nasal allergies 02/28/2018 Ears/Nose/Throat/Neck No nasal discharge 02/28/2018 Cardiovascular No chest pain/pressure Cardiovascular No dyspnea 02/28/2018 Respiratory No chest congestion 2017 Respiratory No cough 02/28/2018 Gastrointestinal No abdominal pain 2017 Dermatologic No rash 02/28/2018 Neurologic No alteration of consciousness 02/28/2018 Neurologic No mental status change 2017 Psychiatric anxiety 02/28/2018 Psychiatric depression 02/28/2018 Psychiatric No suicidality 02/28/2018 Endocrine sweating 02/28/2018 Constitutional fatigue 02/28/2018 Constitutional No recent illness 2017 Constitutional No chills 01/23/2018 Constitutional No diaphoresis 01/23/2018 Constitutional No fever 01/23/2018 Eyes No eye erythema 01/23/2018 Ears/Nose/Throat/Neck No nasal discharge 01/23/2018 Ears/Nose/Throat/Neck No nasal allergies 01/23/2018 Cardiovascular No chest pain/pressure Cardiovascular No dyspnea 01/23/2018 Respiratory No cough 01/23/2018 Respiratory No chest congestion 2017 Gastrointestinal No abdominal pain 2017 Dermatologic No rash 01/23/2018 Neurologic No alteration of consciousness 01/23/2018 Neurologic No mental status change 2017 Psychiatric anxiety 01/23/2018 Psychiatric depression 01/23/2018 Psychiatric No suicidality 01/23/2018 Constitutional recent illness 10/25/2017 Constitutional No chills 10/25/2017 Constitutional No diaphoresis 10/25/2017 Constitutional No fever 10/25/2017 Eyes No eye erythema 10/25/2017 Ears/Nose/Throat/Neck nasal allergies Ears/Nose/Throat/Neck nasal discharge Ears/Nose/Throat/Neck postnasal drip Ears/Nose/Throat/Neck sinus congestion Ears/Nose/Throat/Neck sore throat 2017 Cardiovascular No chest pain/pressure Cardiovascular No dyspnea 10/25/2017 Respiratory No chest congestion 2017 Respiratory cough 10/25/2017 Respiratory No dyspnea 10/25/2017 Gastrointestinal No abdominal pain 2017 Gastrointestinal No constipation 2017 Gastrointestinal No diarrhea 10/25/2017 Gastrointestinal No nausea 10/25/2017 Gastrointestinal No vomiting 10/25/2017 Dermatologic No rash 10/25/2017 Neurologic No alteration of consciousness 10/25/2017 Neurologic No mental status change 2017 Constitutional No recent illness 2017 Constitutional No chills 09/20/2017 Constitutional No diaphoresis 09/20/2017 Constitutional No fever 09/20/2017 Eyes No eye erythema 09/20/2017 Ears/Nose/Throat/Neck No nasal discharge 09/20/2017 Ears/Nose/Throat/Neck No nasal allergies 09/20/2017 Cardiovascular No chest pain/pressure Cardiovascular edema 09/20/2017 Cardiovascular fatigue 09/20/2017 Cardiovascular palpitations 09/20/2017 Cardiovascular No syncope 09/20/2017 Cardiovascular No near-syncope/dizziness 09/20/2017 Respiratory No cough 09/20/2017 Respiratory No chest congestion 2017 Gastrointestinal No abdominal pain 2017 Gastrointestinal No vomiting 09/20/2017 Gastrointestinal No nausea 09/20/2017 Gastrointestinal No constipation 2017 Gastrointestinal No diarrhea 09/20/2017 Musculoskeletal joint complaint 2017 Dermatologic No rash 09/20/2017 Neurologic No alteration of consciousness 09/20/2017 Neurologic No mental status change 2017 Psychiatric anxiety 09/20/2017 Psychiatric depression 09/20/2017 Psychiatric No suicidality 09/20/2017 Constitutional No recent illness 2017 Constitutional No chills 09/05/2017 Constitutional No diaphoresis 09/05/2017 Constitutional No fever 09/05/2017 Constitutional insomnia 09/05/2017 Eyes No eye erythema 09/05/2017 Ears/Nose/Throat/Neck nasal allergies Ears/Nose/Throat/Neck No nasal discharge 09/05/2017 Cardiovascular No chest pain/pressure Cardiovascular No dyspnea 09/05/2017 Cardiovascular hypertension 09/05/2017 Cardiovascular No near-syncope/dizziness 09/05/2017 Cardiovascular No palpitations 2017 Respiratory No cough 09/05/2017 Respiratory No chest congestion 2017 Respiratory No dyspnea 09/05/2017 Gastrointestinal No abdominal pain 2017 Gastrointestinal constipation 09/05/2017 Gastrointestinal diarrhea 09/05/2017 Gastrointestinal No vomiting 09/05/2017 Gastrointestinal No nausea 09/05/2017 Musculoskeletal No joint complaint 2017 Dermatologic No rash 09/05/2017 Neurologic No alteration of consciousness 09/05/2017 Neurologic No mental status change 2017 Physical Exam Exam Name System Name Item Name Status Result Effective Dates Notes Full Exam - General 1994 Constitutional general appearance Overall: well developed 05/24/2018 None Full Exam - General 1994 Constitutional general appearance Overall: well nourished 05/24/2018 None Full Exam - General 1994 Eyes conjunctiva /eyelids Overall: conjunctiva clear 05/24/2018 None Full Exam - General 1994 Eyes conjunctiva /eyelids Overall: cornea clear 05/24/2018 None Full Exam - General 1994 Eyes conjunctiva /eyelids Overall: eyelids normal 05/24/2018 None Full Exam - General 1994 Ears/Nose/Throat lips/teeth/gingiva Overall: benign lips 05/24/2018 None Full Exam - General 1994 Ears/Nose/Throat oral cavity/pharynx/larynx Overall: oral mucosa clear 05/24/2018 None Full Exam - General 1994 Respiratory respiratory effort/rhythm Overall: no retractions 05/24/2018 None Full Exam - General 1994 Respiratory respiratory effort/rhythm Overall: normal rate 05/24/2018 None Full Exam - General 1994 Musculoskeletal spine, ribs and pelvis Spine: tender @ lumbar spine 05/24/2018 None Full Exam - General 1994 Musculoskeletal gait and station Overall: normal gait 05/24/2018 None Full Exam - General 1994 Musculoskeletal gait and station Overall: normal station 05/24/2018 None Full Exam - General 1994 Musculoskeletal head and neck Overall: head atraumatic 05/24/2018 None Full Exam - General 1994 Neurologic cranial nerves Overall: crainial nerves 2 - 12 grossly intact 05/24/2018 None Full Exam - General 1994 Psychiatric orientation/consciousness Overall: oriented to person, place and time 05/24/2018 None Full Exam - General 1994 Psychiatric mood and affect Overall: normal mood and affect 05/24/2018 None Full Exam - General 1994 Psychiatric appearance Overall: well-groomed, good eye contact 05/24/2018 None Full Exam - General 1994 Constitutional general appearance Overall: in no acute distress 05/24/2018 None Full Exam - General 1994 Cardiovascular extremities Overall: no clubbing 05/24/2018 None Full Exam - General 1994 Ears/Nose/Throat otoscopic exam External auditory canal: complete cerumen impaction 05/24/2018 None Full Exam - General 1994 Ears/Nose/Throat otoscopic exam External auditory canal: nontender 05/24/2018 None Full Exam - General 1994 Ears/Nose/Throat otoscopic exam External auditory canal: minimal cerumen 05/24/2018 None Full Exam - General 1994 Constitutional general appearance Overall: well developed 05/08/2018 None Full Exam - General 1994 Constitutional general appearance Overall: well nourished 05/08/2018 None Full Exam - General 1994 Eyes conjunctiva /eyelids Overall: conjunctiva clear 05/08/2018 None Full Exam - General 1994 Eyes conjunctiva /eyelids Overall: cornea clear 05/08/2018 None Full Exam - General 1994 Eyes conjunctiva /eyelids Overall: eyelids normal 05/08/2018 None Full Exam - General 1994 Ears/Nose/Throat lips/teeth/gingiva Overall: benign lips 05/08/2018 None Full Exam - General 1994 Ears/Nose/Throat oral cavity/pharynx/larynx Overall: oral mucosa clear 05/08/2018 None Full Exam - General 1994 Respiratory respiratory effort/rhythm Overall: no retractions 05/08/2018 None Full Exam - General 1994 Respiratory respiratory effort/rhythm Overall: normal rate 05/08/2018 None Full Exam - General 1994 Cardiovascular auscultation of heart Overall: regular rate 05/08/2018 None Full Exam - General 1994 Cardiovascular auscultation of heart Overall: normal heart sounds 05/08/2018 None Full Exam - General 1994 Abdomen abdominal exam Overall: normal bowel sounds 05/08/2018 None Full Exam - General 1994 Musculoskeletal gait and station Overall: normal gait 05/08/2018 None Full Exam - General 1994 Musculoskeletal gait and station Overall: normal station 05/08/2018 None Full Exam - General 1994 Musculoskeletal head and neck Overall: head atraumatic 05/08/2018 None Full Exam - General 1994 Neurologic cranial nerves Overall: crainial nerves 2 - 12 grossly intact 05/08/2018 None Full Exam - General 1994 Psychiatric orientation/consciousness Overall: oriented to person, place and time 05/08/2018 None Full Exam - General 1994 Psychiatric mood and affect Overall: normal mood and affect 05/08/2018 None Full Exam - General 1994 Psychiatric appearance Overall: well-groomed, good eye contact 05/08/2018 None Full Exam - General 1994 Respiratory auscultation Overall: breath sounds clear bilaterally 05/08/2018 None Full Exam - General 1994 Musculoskeletal spine, ribs and pelvis Spine: tender @ lumbar spine 05/08/2018 None Full Exam - General 1994 Musculoskeletal spine, ribs and pelvis Muscle Strength/Tone: spastic 05/08/2018 None Full Exam - General 1994 Constitutional general appearance Overall: well developed 02/28/2018 None Full Exam - General 1994 Constitutional general appearance Overall: well nourished 02/28/2018 None Full Exam - General 1994 Eyes conjunctiva /eyelids Overall: conjunctiva clear 02/28/2018 None Full Exam - General 1994 Eyes conjunctiva /eyelids Overall: cornea clear 02/28/2018 None Full Exam - General 1994 Eyes conjunctiva /eyelids Overall: eyelids normal 02/28/2018 None Full Exam - General 1994 Ears/Nose/Throat lips/teeth/gingiva Overall: benign lips 02/28/2018 None Full Exam - General 1994 Ears/Nose/Throat oral cavity/pharynx/larynx Overall: oral mucosa clear 02/28/2018 None Full Exam - General 1994 Respiratory respiratory effort/rhythm Overall: no retractions 02/28/2018 None Full Exam - General 1994 Respiratory respiratory effort/rhythm Overall: normal rate 02/28/2018 None Full Exam - General 1994 Musculoskeletal gait and station Overall: normal gait 02/28/2018 None Full Exam - General 1994 Musculoskeletal gait and station Overall: normal station 02/28/2018 None Full Exam - General 1994 Musculoskeletal head and neck Overall: head atraumatic 02/28/2018 None Full Exam - General 1994 Neurologic cranial nerves Overall: crainial nerves 2 - 12 grossly intact 02/28/2018 None Full Exam - General 1994 Psychiatric orientation/consciousness Overall: oriented to person, place and time 02/28/2018 None Full Exam - General 1994 Psychiatric mood and affect Overall: normal mood and affect 02/28/2018 None Full Exam - General 1994 Psychiatric appearance Overall: well-groomed, good eye contact 02/28/2018 None Full Exam - General 1994 Cardiovascular auscultation of heart Overall: regular rate 02/28/2018 None Full Exam - General 1994 Cardiovascular auscultation of heart Overall: normal heart sounds 02/28/2018 None Full Exam - General 1994 Abdomen abdominal exam Overall: normal bowel sounds 02/28/2018 None Full Exam - General 1994 Constitutional general appearance Overall: well developed 01/23/2018 None Full Exam - General 1994 Constitutional general appearance Overall: well nourished 01/23/2018 None Full Exam - General 1994 Constitutional general appearance Evidence of Distress: tearful 01/23/2018 None Full Exam - General 1994 Constitutional general appearance Evidence of Distress: anxious 01/23/2018 None Full Exam - General 1994 Eyes conjunctiva /eyelids Overall: eyelids normal 01/23/2018 None Full Exam - General 1994 Eyes conjunctiva /eyelids Overall: cornea clear 01/23/2018 None Full Exam - General 1994 Eyes conjunctiva /eyelids Overall: conjunctiva clear 01/23/2018 None Full Exam - General 1994 Ears/Nose/Throat lips/teeth/gingiva Overall: benign lips 01/23/2018 None Full Exam - General 1994 Ears/Nose/Throat oral cavity/pharynx/larynx Overall: oral mucosa clear 01/23/2018 None Full Exam - General 1994 Respiratory respiratory effort/rhythm Overall: normal rate 01/23/2018 None Full Exam - General 1994 Respiratory respiratory effort/rhythm Overall: no retractions 01/23/2018 None Full Exam - General 1994 Musculoskeletal head and neck Overall: head atraumatic 01/23/2018 None Full Exam - General 1994 Musculoskeletal gait and station Overall: normal station 01/23/2018 None Full Exam - General 1994 Musculoskeletal gait and station Overall: normal gait 01/23/2018 None Full Exam - General 1994 Neurologic cranial nerves Overall: crainial nerves 2 - 12 grossly intact 01/23/2018 None Full Exam - General 1994 Psychiatric orientation/consciousness Overall: oriented to person, place and time 01/23/2018 None Full Exam - General 1994 Psychiatric mood and affect Overall: normal mood and affect 01/23/2018 None Full Exam - General 1994 Psychiatric appearance Overall: well-groomed, good eye contact 01/23/2018 None Full Exam - ENT Constitutional general appearance Overall: well nourished 10/25/2017 None Full Exam - ENT Constitutional general appearance Overall: well developed 10/25/2017 None Full Exam - ENT Constitutional general appearance Overall: in no acute distress 10/25/2017 None Full Exam - ENT Ears/Nose/Throat otoscopic exam Overall: external auditory canals normal 10/25/2017 None Full Exam - ENT Ears/Nose/Throat otoscopic exam Left tympanic membrane: air -fluid level 10/25/2017 None Full Exam - ENT Ears/Nose/Throat otoscopic exam Right tympanic membrane: air-fluid level 10/25/2017 None Full Exam - ENT Ears/Nose/Throat nasal mucosa, septum, turbinates Drainage: clear 10/25/2017 None Full Exam - ENT Ears/Nose/Throat nasal mucosa, septum, turbinates Drainage: yellow 10/25/2017 None Full Exam - ENT Ears/Nose/Throat lips/ teeth/gingiva Overall: benign lips 10/25/2017 None Full Exam - ENT Ears/Nose/Throat oropharynx Posterior Pharynx: clear post nasal drainage 10/25/2017 None Full Exam - ENT Face and Head palpation Left maxillary sinus: tender 10/25/2017 None Full Exam - ENT Face and Head palpation Right maxillary sinus: tender 10/25/2017 None Full Exam - ENT Respiratory inspection Overall: no retractions 10/25/2017 None Full Exam - ENT Respiratory inspection Overall: normal rate None Full Exam - ENT Respiratory auscultation Overall: breath sounds clear bilaterally 10/25/2017 None Full Exam - ENT Cardiovascular auscultation of heart Overall: regular rate 10/25/2017 None Full Exam - ENT Cardiovascular auscultation of heart Overall: normal heart sounds 10/25/2017 None Full Exam - ENT Lymphatic palpation of lymph nodes Overall: anterior cervical chain benign 10/25/2017 None Full Exam - ENT Lymphatic palpation of lymph nodes Overall: posterior cervical chain benign 10/25/2017 None Full Exam - ENT Neurologic mood and affect Overall: normal mood 10/25/2017 None Full Exam - ENT Neurologic mood and affect Overall: normal affect 10/25/2017 None Full Exam - ENT Neurologic orientation Overall: oriented to person, place and time 10/25/2017 None Full Exam - General 1994 Constitutional general appearance Overall: well developed 09/20/2017 None Full Exam - General 1994 Constitutional general appearance Overall: in no acute distress 09/20/2017 None Full Exam - General 1994 Constitutional general appearance Overall: well nourished 09/20/2017 None Full Exam - General 1994 Eyes conjunctiva /eyelids Overall: conjunctiva clear 09/20/2017 None Full Exam - General 1994 Eyes conjunctiva /eyelids Overall: cornea clear 09/20/2017 None Full Exam - General 1994 Eyes conjunctiva /eyelids Overall: eyelids normal 09/20/2017 None Full Exam - General 1994 Ears/Nose/Throat lips/teeth/gingiva Overall: benign lips 09/20/2017 None Full Exam - General 1994 Ears/Nose/Throat oral cavity/pharynx/larynx Overall: oral mucosa clear 09/20/2017 None Full Exam - General 1994 Respiratory respiratory effort/rhythm Overall: no retractions 09/20/2017 None Full Exam - General 1994 Respiratory respiratory effort/rhythm Overall: normal rate 09/20/2017 None Full Exam - General 1994 Respiratory auscultation Overall: breath sounds clear bilaterally 09/20/2017 None Full Exam - General 1994 Cardiovascular auscultation of heart Overall: regular rate 09/20/2017 None Full Exam - General 1994 Cardiovascular auscultation of heart Overall: normal heart sounds 09/20/2017 None Full Exam - General 1994 Musculoskeletal head and neck Overall: head atraumatic 09/20/2017 None Full Exam - General 1994 Musculoskeletal gait and station Overall: normal gait 09/20/2017 None Full Exam - General 1994 Musculoskeletal gait and station Overall: normal station 09/20/2017 None Full Exam - General 1994 Neurologic cranial nerves Overall: crainial nerves 2 - 12 grossly intact 09/20/2017 None Full Exam - General 1994 Psychiatric orientation/consciousness Overall: oriented to person, place and time 09/20/2017 None Full Exam - General 1994 Psychiatric mood and affect Overall: normal mood and affect 09/20/2017 None Full Exam - General 1994 Psychiatric appearance Overall: well-groomed, good eye contact 09/20/2017 None Full Exam - General 1994 Constitutional general appearance Overall: well developed 09/05/2017 None Full Exam - General 1994 Constitutional general appearance Overall: in no acute distress 09/05/2017 None Full Exam - General 1994 Constitutional general appearance Overall: well nourished 09/05/2017 None Full Exam - General 1994 Eyes conjunctiva /eyelids Overall: conjunctiva clear 09/05/2017 None Full Exam - General 1994 Eyes conjunctiva /eyelids Overall: cornea clear 09/05/2017 None Full Exam - General 1994 Eyes conjunctiva /eyelids Overall: eyelids normal 09/05/2017 None Full Exam - General 1994 Eyes pupils and irises Overall: pupils equal, round, reactive to light and accomodation 09/05/2017 None Full Exam - General 1994 Ears/Nose/Throat otoscopic exam Overall: external auditory canals clear 09/05/2017 None Full Exam - General 1994 Ears/Nose/Throat otoscopic exam Overall: tympanic membranes clear 09/05/2017 None Full Exam - General 1994 Ears/Nose/Throat lips/teeth/gingiva Overall: benign lips 09/05/2017 None Full Exam - General 1994 Ears/Nose/Throat oral cavity/pharynx/larynx Overall: oral mucosa clear 09/05/2017 None Full Exam - General 1994 Ears/Nose/Throat oral cavity/pharynx/larynx Overall: oropharyngeal mucosa clear 09/05/2017 None Full Exam - General 1994 Respiratory auscultation Overall: breath sounds clear bilaterally 09/05/2017 None Full Exam - General 1994 Respiratory respiratory effort/rhythm Overall: normal rate 09/05/2017 None Full Exam - General 1994 Respiratory respiratory effort/rhythm Overall: no retractions 09/05/2017 None Full Exam - General 1994 Cardiovascular auscultation of heart Overall: regular rate 09/05/2017 None Full Exam - General 1994 Cardiovascular auscultation of heart Overall: normal heart sounds 09/05/2017 None Full Exam - General 1994 Abdomen abdominal exam Overall: normal bowel sounds 09/05/2017 None Full Exam - General 1994 Abdomen abdominal exam Overall: no tenderness 09/05/2017 None Full Exam - General 1994 Musculoskeletal head and neck Overall: head atraumatic 09/05/2017 None Full Exam - General 1994 Musculoskeletal gait and station Overall: normal gait 09/05/2017 None Full Exam - General 1994 Musculoskeletal gait and station Overall: normal station 09/05/2017 None Full Exam - General 1994 Neurologic cranial nerves Overall: crainial nerves 2 - 12 grossly intact 09/05/2017 None Full Exam - General 1994 Psychiatric orientation/consciousness Overall: oriented to person, place and time 09/05/2017 None Full Exam - General 1994 Psychiatric mood and affect Overall: normal mood and affect 09/05/2017 None Full Exam - General 1994 Psychiatric appearance Overall: well-groomed, good eye contact 09/05/2017 None Procedures Procedure Codes Date TRIAMCINOLONE ACET INJ NOS CPT-4: J3301 10/25/2017 ROCEPHIN, PER 250 MG CPT-4: J0696 10/25/2017 Vital Signs Date Vital 05/24/2018 Blood Pressure 1: 120/80 Code : 8480-6 BMI: 44.7 Code : 85030-9 Heart Rate 1 : 80 bpm Height: 5'6" SpO2: 94% Weight: 277 lbs 05/08/2018 Blood Pressure 1: 132/84 Code : 8480-6 BMI: 44.7 Code : 09704-9 Heart Rate 1 : 87 bpm Height: 5'6" SpO2: 98% Weight: 277 lbs 02/28/2018 Blood Pressure 1: 130/72 Code : 8480-6 BMI: 43.9 Code : 03021-9 Heart Rate 1 : 65 bpm Height: 5'6" SpO2: 97% Weight: 272 lbs 01/23/2018 Blood Pressure 1: 122/60 Code : 8480-6 BMI: 43.9 Code : 35926-2 Heart Rate 1 : 87 bpm Height: 5'6" SpO2: 97% Weight: 272 lbs 10/25/2017 Blood Pressure 1: 124/76 Code : 8480-6 BMI: 42.9 Code : 84197-6 Heart Rate 1 : 94 bpm Height: 5'6" SpO2: 95% Weight: 266 lbs 09/20/2017 Blood Pressure 1: 144/76 Code : 8480-6 BMI: 43.3 Code : 44318-1 Heart Rate 1 : 91 bpm Height: 5'6" SpO2: 98% Weight: 268 lbs 09/05/2017 Blood Pressure 1: 140/78 Code : 8480-6 BMI: 44.7 Code : 48247-7 Heart Rate 1 : 81 bpm Height: 5'6" SpO2: 97% Weight: 277 lbs Functional Status No Functional Status data History of Present Illness Symptom Name Status Result Effective Date Notes medication follow up Location oral intake 05/24/2018 None medication follow up Quality constant 05/24/2018 None earache Location left ear 05/24/2018 None earache Onset and Resolution sudden in onset 05/24/2018 None back pain Location in the midline of in the lower back area 05/08/2018 None back pain Quality aching 05/08/2018 None back pain Quality constant 05/08/2018 None back pain Quality sharp 05/08/2018 None back pain Onset and Resolution sudden in onset 05/08/2018 None back pain Onset of Symptom 2 days ago 05/08/2018 None back pain Limitation on Activities moderately limits activities 05/08/2018 None back pain Frequency of Episodes daily 05/08/2018 None medication follow up Additional Comments medication use 05/08/2018 None medication follow up Location oral intake 05/08/2018 None medication follow up Quality constant 05/08/2018 None menstrual irregularity Quality constant 05/08/2018 None menstrual irregularity Onset and Resolution sudden in onset 05/08/2018 None menstrual irregularity Onset of Symptom 1 months ago 05/08/2018 None medication follow up Location oral intake 02/28/2018 None back pain Location diffusely 02/28/2018 None back pain Quality aching 02/28/2018 None back pain Onset and Resolution sudden in onset 02/28/2018 None back pain Onset of Symptom 3 days ago 02/28/2018 None back pain Frequency of Episodes daily 02/28/2018 None medication follow up Additional Comments medication use 01/23/2018 None medication follow up Location oral intake 01/23/2018 None sinus congestion Location frontal sinuses 10/25/2017 None sinus congestion Quality constant 10/25/2017 None sinus congestion Quality fullness 10/25/2017 None sinus congestion Quality pressure 10/25/2017 None sinus congestion Onset and Resolution sudden in onset 10/25/2017 None sinus congestion Onset of Symptom 1 weeks ago 10/25/2017 None sinus congestion Frequency of Episodes daily 10/25/2017 None sore throat Location diffusely 10/25/2017 None sore throat Quality aching 10/25/2017 None sore throat Quality constant 10/25/2017 None sore throat Onset and Resolution sudden in onset 10/25/2017 None sore throat Onset of Symptom _ weeks ago 10/25/2017 None hypertension Quality constant 09/20/2017 None hypertension Onset and Resolution ongoing 09/20/2017 None hypertension Onset of Symptom during adulthood 09/20/2017 None anxiety Quality constant 09/05/2017 None anxiety Onset and Resolution sudden in onset 09/05/2017 None anxiety Onset of Symptom 1 weeks ago 09/05/2017 None anxiety Onset of Symptom during adulthood 09/05/2017 None anxiety Pertinent Findings insomnia 09/05/2017 None anxiety Pertinent Findings lightheadedness 09/05/2017 None anxiety Pertinent Findings palpitations 09/05/2017 None fatigue Onset of Symptom _ months ago 09/05/2017 None hypertension Quality constant 09/05/2017 None hypertension Quality worsening 09/05/2017 None hypertension Onset and Resolution sudden in onset 09/05/2017 None hypertension Onset of Symptom during adulthood 09/05/2017 None Advance Directives No Advance Directive data Encounters Encounter Performer Location Codes Date [id number] EST. PATIENT, LEVEL III Diagnosis: Essential (primary) hypertension[ICD10: I10] Diagnosis: Generalized anxiety disorder[ICD10: F41.1] Diagnosis: Major depressive disorder, single episode, moderate[ICD10: F32.1] Diagnosis: Low back pain[ICD10: M54.5] Diagnosis: Impacted cerumen, left ear[ICD10: H61.22] Neva Chavarria MD, [facility] CPT-4: 29615 05/24/2018 35024 EST. PATIENT, LEVEL IV Diagnosis: Dysuria[ICD10: R30.0] Diagnosis: Generalized anxiety disorder[ICD10: F41.1] Diagnosis: Major depressive disorder, single episode, moderate[ICD10: F32.1] Diagnosis: Polycystic ovarian syndrome[ICD10: E28.2] Diagnosis: Low back pain[ICD10: M54.5] Neva Chavarria MD, [facility] CPT-4 : 26549 05/08/2018 55806 EST. PATIENT, LEVEL IV Diagnosis: Other specified hypothyroidism[ICD10: E03.8] Diagnosis: Generalized anxiety disorder[ICD10: F41.1] Diagnosis: Major depressive disorder, single episode, moderate[ICD10: F32.1] Diagnosis: Essential (primary) hypertension[ICD10: I10] Diagnosis: Other malaise[ICD10: R53.81] Diagnosis: Other fatigue[ICD10: R53.83] Neva Chavarria MD, [facility] CPT-4 : 58966 02/28/2018 88051 EST. PATIENT, LEVEL III Diagnosis: Other specified hypothyroidism[ICD10: E03.8] Diagnosis: Generalized anxiety disorder[ICD10: F41.1] Diagnosis: Major depressive disorder, single episode, moderate[ICD10: F32.1] Neva Chavarria MD, [facility] CPT-4: 55648 01/23/2018 18799 EST. PATIENT, LEVEL IV Diagnosis: Other acute sinusitis[ICD10: J01.80] Diagnosis: Other allergic rhinitis[ICD10: J30.89] Diagnosis: Essential (primary) hypertension[ICD10: I10] Neva Chavarria MD, [facility] CPT-4: 98328 10/25/2017 30408 EST. PATIENT, LEVEL III Diagnosis: Other fatigue[ICD10: R53.83] Diagnosis: Other malaise[ICD10: R53.81] Diagnosis: Essential (primary) hypertension[ICD10: I10] Diagnosis: Generalized anxiety disorder[ICD10: F41.1] Diagnosis: Major depressive disorder, single episode, moderate[ICD10: F32.1] Neva Chavarria MD, [facility] CPT-4: 49186 09/20/2017 OFFICE VISIT, NEW - LEVEL 3 Diagnosis: Essential (primary) hypertension[ICD10: I10] Diagnosis: Generalized anxiety disorder[ICD10: F41.1] Diagnosis: Major depressive disorder, single episode, moderate[ICD10: F32.1] Neva Chavarria MD, [facility] CPT-4: 41068 09/05/2017 Plan of Care Planned Activity Notes Codes Status Date Patient Education: Patient Medication Summary Completed 06/23/2018 Referral: Cathy Manriquez WPtel: [address] [place], [place] [id number] Referral Initiated 06/14/2018 Patient Education: Patient Medication Summary Completed 06/06/2018 Appointment: Neva Brito WPtel: [facility] (15 min) Moderate 05/31/2018 Visit Plan: Hypertension - well controlled - continue with current medications, continue with no added salt diet. Pt has been encouraged to exercise daily. The pt has been advised to call the office if there are any acute concerns about change in blood pressure readings at home. Chronic Depression and anxiety - the pt has symptoms of chronic anxiety and depression that have been fairly well controlled since the last office visit. The pt has expected periods of exacerbation with abatement of the symptoms with change in situational exposure. No change in current medications. Cerumen Impaction - The impacted cerumen was removed with the use of the ear currette. The patient tolerated the procedure without incident and had improvement in hearing. The wax was removed by the practitioner due to the wax being more complicated to remove, and staff was needed to assist the removal of the wax by holding the ear , and keeping patient stabilized during the removal process. Low back pain- improving - the patient was instructed in appropriate posture, need for weight loss to alleviate abdominal obesity that is worsening the patient's back pain.. The pt is to use prn antiinflammatories to manage acute pain. The patient is to call the office if the pain is worsening or does not improve. 05/24/2018 [facility]ment[phone] [facility] (15 min) Moderate 05/24/2018 Patient Education: Patient Medication Summary Completed 05/24/2018 Patient Education: Depression Completed 05/24/2018 Patient Education: Back Pain Completed 05/24/2018 Referral: Cathy Manriquez WPtel: [phone] [place], [place] [id number] pt will be called by there office for appt Initiated 05/16/2018 Care Plan: Referral Order SNOMED-CT : [id number] Pending 05/09/2018 Visit Plan: PCOS - will refer to OB Low back pain- the patient was instructed in appropriate posture, need for weight loss to alleviate abdominal obesity that is worsening the patient's back pain.. The pt is to use prn antiinflammatories to manage acute pain. The patient is to call the office if the pain is worsening or does not improve. Anxiety - the patient has uncontrolled anxiety and will benefit from an SSRI on a daily basis to attempt control of the symptoms of anxiety (tachycardia, overwhelming sensations , stress, insomnia, etc). I also believe that the patient will benefit from very low dose of prn benzodiazepine. Pt is aware of the risks and benefits of treatment with the above medications. Depression - uncontrolled - Pt has been counseled about the diagnosis of depression, the potential causes, and risks associated with the diagnosis. The pt denies suicidal ideation, or plans. The patient has been counseled about treatment options, and understands the risks associated with treatment of depression, as well as the risks associated with NOT treating the depression. I believe the pt will benefit from medical intervention and an antidepressant has been appropriately prescribed for this patient. 05/08/2018 Appointment: [facility] [phone] [facility] (15 min) Moderate 05/08/2018 Patient Education: Patient Medication Summary Completed 05/08/2018 Patient Education: Depression Completed 05/08/2018 Patient Education: Back Pain Completed 05/08/2018 Visit Plan: Hypothyroidism - pt with chronic hypothyroidism , continue with current medication, will monitor pt to signs or symptoms of lack of adequate supplementation. Pt is to continue with current dose of medication unless directed otherwise. Check labs at regular intervals wither q 3 months or q 6 months based on previous levels of control. Chronic Depression and anxiety - the pt has symptoms of chronic anxiety and depression that have been fairly well controlled since the last office visit. The pt has expected periods of exacerbation with abatement of the symptoms with change in situational exposure. No change in current medications. Hypertension - well controlled - continue with current medications, continue with no added salt diet. Pt has been encouraged to exercise daily. The pt has been advised to call the office if there are any acute concerns about change in blood pressure readings at home. Fatigue, malaise - will check labs and treat as indicated 02/28/2018 Appointment: [facility] [phone] [facility] (30 min) Complex 02/28/2018 Patient Education: Patient Medication Summary Completed 02/28/2018 Visit Plan: Anxiety - the patient has uncontrolled anxiety and will benefit from an SSRI on a daily basis to attempt control of the symptoms of anxiety (tachycardia, overwhelming sensations, stress, insomnia, etc ). I also believe that the patient will benefit from very low dose of prn benzodiazepine. Pt is aware of the risks and benefits of treatment with the above medications. Depression - uncontrolled - Pt has been counseled about the diagnosis of depression, the potential causes, and risks associated with the diagnosis. The pt denies suicidal ideation, or plans. The patient has been counseled about treatment options, and understands the risks associated with treatment of depression, as well as the risks associated with NOT treating the depression. I believe the pt will benefit from medical intervention and an antidepressant has been appropriately prescribed for this patient. Hypothyroidism - pt with chronic hypothyroidism, continue with current medication, will monitor pt to signs or symptoms of lack of adequate supplementation. Pt is to continue with current dose of medication unless directed otherwise. Check labs at regular intervals wither q 3 months or q 6 months based on previous levels of control. 01/23/2018 Appointment: [facility] [phone] [facility] (15 min) Moderate 01/23/2018 Patient Education: Patient Medication Summary Completed 01/23/2018 Care Plan: Tsh Cancelled 01/23/2018 Care Plan: Free T4 Cancelled 01/23/2018 Care Plan: Total T3 Cancelled 01/23/2018 Visit Plan: Sinusitis - Pt has acute infection - pain in face, maxillary region, Pt informed to use decongestant, RX given to patient, sinus rinses also recommended. Call if symptoms do not show improvement. Allergies - chronic - recommended pt to use allergy medication as prescribed. Pt has been counseled as to the appropriate use of the medication. Pt to call if allergy symptoms are not controlled with the medication. If using nasal spray , instructions as follows: Nasal spray- use twice daily, one spray per nostril twice daily, after 30 minutes, rinse out nose with saline spray.. Use opposite hand per nostril to spray in the nasal steroid allergy spray. Hypertension - well controlled - continue with current medications, continue with no added salt diet. Pt has been encouraged to exercise daily. The pt has been advised to call the office if there are any acute concerns about change in blood pressure readings at home. 10/25/2017 Visit Plan: Sinusitis - Pt has acute infection - pain in face, maxillary region, Pt informed to use decongestant, RX given to patient, sinus rinses also recommended. Call if symptoms do not show improvement. Allergies - chronic - recommended pt to use allergy medication as prescribed. Pt has been counseled as to the appropriate use of the medication. Pt to call if allergy symptoms are not controlled with the medication. If using nasal spray , instructions as follows: Nasal spray- use twice daily, one spray per nostril twice daily, after 30 minutes, rinse out nose with saline spray.. Use opposite hand per nostril to spray in the nasal steroid allergy spray. Hypertension - well controlled - continue with current medications, continue with no added salt diet. Pt has been encouraged to exercise daily. The pt has been advised to call the office if there are any acute concerns about change in blood pressure readings at home. 10/25/2017 [id number] (15 min) Moderate 10/25/2017 Patient Education: Patient Medication Summary Completed 10/25/2017 Visit Plan: Hypertension - uncontrolled - the patient's medications have been modified as documented in the visit note. The patient has been counseled to cut back on salt in diet for a no added salt diet, low fat diet, start an exercise program with low weight bearing exercises and higher aerobic activity for heart health. The patient is to check blood pressure readings as an outpatient and either fax, call, or email the readings to the office next week for practitioner to review. The pt is to call for acute concerns. Chronic Depression and anxiety - the pt has symptoms of chronic anxiety and depression that have been fairly well controlled since the last office visit. The pt has expected periods of exacerbation with abatement of the symptoms with change in situational exposure. No change in current medications. Fatigue, malaise - will check labs and treat or refer as indicated - pt is to notify clinic if symptoms do not improve, if they worsen, or with any changes, questions, or concerns. 09/20/2017 Appointment: [id number] (15 min) Moderate 09/20/2017 Patient Education: Patient Medication Summary Completed 09/20/2017 Visit Plan: Hypertension - uncontrolled - the patient's medications have been modified as documented in the visit note. The patient has been counseled to cut back on salt in diet for a no added salt diet, low fat diet, start an exercise program with low weight bearing exercises and higher aerobic activity for heart health. The patient is to check blood pressure readings as an outpatient and either fax, call, or email the readings to the office next week for practitioner to review. The pt is to call for acute concerns. Anxiety - the patient has uncontrolled anxiety and will benefit from an SSRI on a daily basis to attempt control of the symptoms of anxiety ( tachycardia, overwhelming sensations, stress, insomnia, etc). I also believe that the patient will benefit from very low dose of prn benzodiazepine. Pt is aware of the risks and benefits of treatment with the above medications. 09/05/2017 Appointment: [id number] New Patient 09/05/2017 Patient Education: Patient Medication Summary Completed 09/05/2017 [facility]: [phone] [id number] Ref[facility] Initiated Instructions Comment Refer to OB for PCOS Start Naproxen 500mg twice a day x 5 days - to help with back pain and period Stop flexeril start baclofen as needed will refill xanax decrease prozac to 1 pill daily x 3 days, then stop and start viibryd will culture urine will get back x-ray if no better. . PCOS - will refer to OB Low back pain- the patient was instructed in appropriate posture, need for weight loss to alleviate abdominal obesity that is worsening the patient's back pain.. The pt is to use prn antiinflammatories to manage acute pain. The patient is to call the office if the pain is worsening or does not improve. Anxiety - the patient has uncontrolled anxiety and will benefit from an SSRI on a daily basis to attempt control of the symptoms of anxiety (tachycardia, overwhelming sensations, stress, insomnia, etc). I also believe that the patient will benefit from very low dose of prn benzodiazepine. Pt is aware of the risks and benefits of treatment with the above medications. Depression - uncontrolled - Pt has been counseled about the diagnosis of depression, the potential causes, and risks associated with the diagnosis. The pt denies suicidal ideation, or plans. The patient has been counseled about treatment options, and understands the risks associated with treatment of depression, as well as the risks associated with NOT treating the depression. I believe the pt will benefit from medical intervention and an antidepressant has been appropriately prescribed for this patient. . Hypertension - uncontrolled - the patient's medications have been modified as documented in the visit note. The patient has been counseled to cut back on salt in diet for a no added salt diet, low fat diet, start an exercise program with low weight bearing exercises and higher aerobic activity for heart health. The patient is to check blood pressure readings as an outpatient and either fax , call, or email the readings to the office next week for practitioner to review. The pt is to call for acute concerns. Chronic Depression and anxiety - the pt has symptoms of chronic anxiety and depression that have been fairly well controlled since the last office visit. The pt has expected periods of exacerbation with abatement of the symptoms with change in situational exposure. No change in current medications. Fatigue, malaise - will check labs and treat or refer as indicated - pt is to notify clinic if symptoms do not improve, if they worsen, or with any changes, questions, or concerns. . Sinusitis - Pt has acute infection - pain in face, maxillary region, Pt informed to use decongestant, RX given to patient, sinus rinses also recommended. Call if symptoms do not show improvement. Allergies - chronic - recommended pt to use allergy medication as prescribed. Pt has been counseled as to the appropriate use of the medication. Pt to call if allergy symptoms are not controlled with the medication. If using nasal spray, instructions as follows: Nasal spray- use twice daily, one spray per nostril twice daily, after 30 minutes, rinse out nose with saline spray.. Use opposite hand per nostril to spray in the nasal steroid allergy spray. Hypertension - well controlled - continue with current medications, continue with no added salt diet. Pt has been encouraged to exercise daily. The pt has been advised to call the office if there are any acute concerns about change in blood pressure readings at home. . Sinusitis - Pt has acute infection - pain in face, maxillary region, Pt informed to use decongestant, RX given to patient, sinus rinses also recommended. Call if symptoms do not show improvement. Allergies - chronic - recommended pt to use allergy medication as prescribed. Pt has been counseled as to the appropriate use of the medication. Pt to call if allergy symptoms are not controlled with the medication. If using nasal spray, instructions as follows: Nasal spray- use twice daily, one spray per nostril twice daily, after 30 minutes, rinse out nose with saline spray.. Use opposite hand per nostril to spray in the nasal steroid allergy spray. Hypertension - well controlled - continue with current medications, continue with no added salt diet. Pt has been encouraged to exercise daily. The pt has been advised to call the office if there are any acute concerns about change in blood pressure readings at home. . Hypertension - well controlled - continue with current medications, continue with no added salt diet. Pt has been encouraged to exercise daily. The pt has been advised to call the office if there are any acute concerns about change in blood pressure readings at home. Chronic Depression and anxiety - the pt has symptoms of chronic anxiety and depression that have been fairly well controlled since the last office visit. The pt has expected periods of exacerbation with abatement of the symptoms with change in situational exposure. No change in current medications. Cerumen Impaction - The impacted cerumen was removed with the use of the ear currette. The patient tolerated the procedure without incident and had improvement in hearing. The wax was removed by the practitioner due to the wax being more complicated to remove, and staff was needed to assist the removal of the wax by holding the ear, and keeping patient stabilized during the removal process. Low back pain- improving - the patient was instructed in appropriate posture, need for weight loss to alleviate abdominal obesity that is worsening the patient's back pain.. The pt is to use prn antiinflammatories to manage acute pain. The patient is to call the office if the pain is worsening or does not improve. Decrease wellbutrin to 150mg daily x 1 week, then cut it in half and take 75mg daily x 1 week, then stopped Start prozac 20mg x 1 week, then increase to 40mg daily. . Anxiety - the patient has uncontrolled anxiety and will benefit from an SSRI on a daily basis to attempt control of the symptoms of anxiety (tachycardia, overwhelming sensations, stress, insomnia, etc). I also believe that the patient will benefit from very low dose of prn benzodiazepine. Pt is aware of the risks and benefits of treatment with the above medications. Depression - uncontrolled - Pt has been counseled about the diagnosis of depression, the potential causes, and risks associated with the diagnosis. The pt denies suicidal ideation, or plans. The patient has been counseled about treatment options, and understands the risks associated with treatment of depression, as well as the risks associated with NOT treating the depression. I believe the pt will benefit from medical intervention and an antidepressant has been appropriately prescribed for this patient. Hypothyroidism - pt with chronic hypothyroidism, continue with current medication, will monitor pt to signs or symptoms of lack of adequate supplementation. Pt is to continue with current dose of medication unless directed otherwise. Check labs at regular intervals wither q 3 months or q 6 months based on previous levels of control. . Hypothyroidism - pt with chronic hypothyroidism, continue with current medication, will monitor pt to signs or symptoms of lack of adequate supplementation. Pt is to continue with current dose of medication unless directed otherwise. Check labs at regular intervals wither q 3 months or q 6 months based on previous levels of control. Chronic Depression and anxiety - the pt has symptoms of chronic anxiety and depression that have been fairly well controlled since the last office visit. The pt has expected periods of exacerbation with abatement of the symptoms with change in situational exposure. No change in current medications. Hypertension - well controlled - continue with current medications, continue with no added salt diet. Pt has been encouraged to exercise daily. The pt has been advised to call the office if there are any acute concerns about change in blood pressure readings at home. Fatigue, malaise - will check labs and treat as indicated . Hypertension - uncontrolled - the patient's medications have been modified as documented in the visit note. The patient has been counseled to cut back on salt in diet for a no added salt diet, low fat diet, start an exercise program with low weight bearing exercises and higher aerobic activity for heart health. The patient is to check blood pressure readings as an outpatient and either fax , call, or email the readings to the office next week for practitioner to review. The pt is to call for acute concerns. Anxiety - the patient has uncontrolled anxiety and will benefit from an SSRI on a daily basis to attempt control of the symptoms of anxiety (tachycardia, overwhelming sensations, stress, insomnia, etc). I also believe that the patient will benefit from very low dose of prn benzodiazepine. Pt is aware of the risks and benefits of treatment with the above medications.
--- OUTSIDE RECORDS SUMMARY | 2018-07-07 09:34 | XMS REPORT | CCD ---
Author Author [facility] Address [address] [place] [address] Phone Care Team Providers Care Hat Maker Name Role Phone PP Unavailable CCM Unavailable Summary Purpose Interface Exchange Insurance Providers Payer name Policy type / Coverage type Covered constitution party ID Effective Begin Date Effective End Date [facility] [employer]/[facility] [id number] 2017 Unknown Family history Mother Diagnosis Age [...] Start Date Stop Date Status Fill Instructions Viibryd 40 mg tablet RxNorm: 3828465 1 TABLET(S) PO DAILY 06/1909/16/2018 Active Viibryd 40 mg tablet RxNorm: 7392642 1 Tablet(s) PO daily 05/2206/18/2018 Inactive Viibryd 40 mg tablet RxNorm: 8069231 1 Tablet(s) PO daily 05/2205/21/2018 Inactive tramadol 50 mg tablet RxNorm: 495551 1 Tablet(s) PO QID as needed for pain 05/11/2018 05/15/2018 Inactive Cipro 500 mg tablet RxNorm: 943566 1 Tablet(s) PO BID 201705/20/2018 Inactive Diflucan 150 mg tablet RxNorm: 905037 1 Tablet(s) PO daily 07/201705/17/2018 Inactive Cipro 500 mg tablet RxNorm: 332750 1 Tablet(s) PO BID 201705/10/2018 Inactive Xanax 0.5 mg tablet RxNorm: 927144 1 Tablet(s) PO BID as needed 05/08/2018 08/05/2018 Active naproxen 500 mg tablet RxNorm: 777730 1 Tablet(s) PO BID 201705/12/2018 Inactive baclofen 10 mg tablet RxNorm: 794252 1 Tablet(s) PO TID as needed muscle spasms 05/08/2018 05/12/2018 Inactive lisinopril 20 mg tablet RxNorm: 381827 1 TABLET(S) PO DAILY 02/201810/13/2018 Active Prozac 20 mg capsule RxNorm: 265218 2 CAPSULE(S) PO DAILY 04/1705/16/2018 Inactive Prozac 20 mg capsule RxNorm: 053458 3 Capsule(s) PO daily 03/0204/30/2018 Inactive fluoxetine 60 mg tablet RxNorm: 0483295 1 Tablet(s) PO daily 03/01/2018 Inactive Xanax 0.5 mg tablet RxNorm: 751062 1 Tablet(s) PO BID as needed 02/27/2018 05/07/2018 Inactive Prozac 20 mg capsule RxNorm: 901372 2 Capsule(s) PO daily 02/2003/01/2018 Inactive Prozac 20 mg capsule RxNorm: 672812 1 Capsule(s) PO daily x 1 week then 2 pills daily 01/23/2018 02/19/2018 Inactive Wellbutrin XL 150 mg 24 hr tablet, extended release RxNorm: 588406 1 Tablet(s) PO UD 01/23/2018 05/09/2018 Inactive Xanax 0.5 mg tablet RxNorm: 243027 1 Tablet(s) PO BID 201702/26/2018 Inactive metoprolol succinate ER 25 mg tablet,extended release 24 hr RxNorm: 886053 1 Tablet(s) PO daily 10/31/2017 11/29/2017 Inactive ceftriaxone 500 mg solution for injection RxNorm: 0474114 Inj 10/25/2017 10/25/2017 Inactive Keflex 500 mg capsule RxNorm: 092195 1 Capsule(s) PO TID 201710/31/2017 Inactive Diflucan 150 mg tablet RxNorm: 876003 1 Tablet(s) PO daily 10/31/2017 Inactive Kenalog 40 mg/mL suspension for injection RxNorm: 8986933 Milliliter(s) Inj 10/25/2017 10/25/2017 Inactive Xanax 0.5 mg tablet RxNorm: 106825 1 Tablet(s) PO BID 201712/18/2017 Inactive lisinopril 20 mg tablet RxNorm: 746310 1 TABLET(S) PO DAILY 06/201804/16/2018 Inactive Xanax 0.5 mg tablet RxNorm: 732726 1 Tablet(s) PO BID 201710/18/2017 Inactive lisinopril 20 mg tablet RxNorm: 629399 1 Tablet(s) PO daily 10/19/2017 Inactive Xanax 0.25 mg tablet RxNorm: 196585 1 Tablet(s) PO BID as needed 09/05/2017 09/13/2017 Inactive lisinopril 10 mg tablet RxNorm: 910249 1 Tablet(s) PO daily 09/13/2017 Inactive bupropion HCl XL 300 mg 24 hr tablet, extended release RxNorm: 967526 1 Tablet(s) PO daily 09/05/2017 02/15/2018 Inactive spironolactone 100 mg tablet RxNorm: 145677 1 Tablet(s) PO daily No Start Date Active magnesium oral RxNorm : 6574 oral No Start Date Active Vitamin D3 5,000 unit tablet RxNorm: 013011 1 Tablet(s) PO daily No Start Date Active allopurinol 300 mg tablet RxNorm: 240275 1 Tablet(s) PO daily No Start Date Active liothyronine 5 mcg tablet RxNorm: 997706 1 Tablet(s) PO QAM and 1 early afternoon No Start Date Active metformin 1,000 mg tablet RxNorm: 113348 1 Tablet(s) PO daily No Start Date Active Nature Thyroid 60 mg tablet RxNorm: 431061 1 Tablet(s) PO QAM and 1 early afternoon No Start Date Active Medication Administered Medication Codes Instructions Start Date Status ceftriaxone 500 mg solution for injection RxNorm: 4177251 10/25/2017 No longer Active Kenalog 40 mg/mL suspension for injection RxNorm: 1424902 Milliliter 10/25/2017 No longer Active Immunizations No [...] 31.8 pg 06/14/2018 Cbc With Differential Ord2 Weld% 5.6 % 06/14/2018 Cbc With Differential Ord2 [...] 3.34 K/ul 06/14/2018 Cbc With Differential Ord2 Weld ABS# 0.8 K/ul 06/14/2018 Cbc With Differential Ord2 Eos ABS# 0.2 K/ul 06/14/2018 Cbc With Differential Ord2 Baso ABS# 0.0 K/ul 06/14/2018 Comp Metabolic Yjm044 NA 137 mEq/L 05/24/2018 Comp Metabolic Euy253 K 4.3 mEq/L 05/24/2018 Comp Metabolic Gzd491 CL 99 mEq/L 05/24/2018 Comp Metabolic Aga218 CO2 29.0 mEq/L 05/24/2018 Comp Metabolic Whn818 ANION GAP 13 05/24/2018 Comp Metabolic Wxj733 GLUCOSE 85 mg/dL 05/24/2018 Comp Metabolic Tdi011 Creat 0.7 mg/dL 05/24/2018 Comp Metabolic Wsi881 eGFR 94 ml/min/1.73m2 05/24/2018 Comp Metabolic Wov677 BUN 18 mg/dL 05/24/2018 Comp Metabolic Cru190 B/C Ratio 25.0 Ratio 05/24/2018 Comp Metabolic Tcg297 CALCIUM 9.8 mg/dL 05/24/2018 Comp Metabolic Qif819 ALK PHOS 67 U/L 05/24/2018 Comp Metabolic Gzx088 AST(SGOT) 19 U/L 05/24/2018 Comp Metabolic Ydb059 ALT(SGPT) 20 U/L 05/24/2018 Comp Metabolic Gwe475 BILI T 0.3 mg/dL 05/24/2018 Comp Metabolic Zvz108 ALBUMIN 4.4 g/dL 05/24/2018 Comp Metabolic Fqc821 TPRO 7.4 g/dL 05/24/2018 Comp Metabolic Wkt825 GLOB 3.0 g/dL 05/24/2018 Comp Metabolic Xdd154 A/G Ratio 1.5 Ratio 05/24/2018 Comp Metabolic Wdq634 Osmo 275 mOsmo 05/24/2018 Lipid Ord30 CHOL [...] 31.7 pg 05/24/2018 Cbc With Differential Ord2 Weld% 5.1 % 05/24/2018 Cbc With Differential Ord2 [...] 3.47 K/ul 05/24/2018 Cbc With Differential Ord2 Weld ABS# 0.9 K/ul 05/24/2018 Cbc With Differential Ord2 Eos ABS# 0.2 K/ul 05/24/2018 Cbc With Differential Ord2 Baso ABS# 0.0 K/ul 05/24/2018 Culture Urine [id number] URINE CULTURE SEE NOTES 05/11/2018 Culture Urine [id number] Continued Results 05/11/2018 Urine Culture Ucult Complete >100,000 col/ml aerobic growth sent to ref lab 05/09/2018 Total T3 Ord42 TT3 2.60 ng/ml 02/28/2018 Free T4 Zea847 FREE T4 0.85 ng/dL 02/28/2018 Tsh Ord6 TSH (3rd IS) 1.89 uIU/mL 02/28/2018 %Hba1C Exv904 % HbA1c 26190-6 5.7 % 02/28/2018 %Hba1C Kta180 Gluc Ave 117 mg/dL 02/28/2018 Lymes Disease Total Antibodies With Western Blot Reflex [id number] B. BURGDORFERI, IGG/IGM 0.139 09/26/2017 Lymes Disease Total Antibodies With Western Blot Reflex [id number] 09/26/2017 [place] Spotted Fever Igg/Igm 255079 [place] SPOTTED FEVER IGM EIA . 09/24/2017 [place] Spotted Fever Igg/Igm 898064 RMSF, IGM 0.28 index 09/24/2017 [place] Spotted Fever Igg/Igm 941895 [place] SPOTTED FEVER IGG EIA FLEX . 09/24/2017 [place] Spotted Fever Igg/Igm 951300 RMSF, IGG SCREEN-FLEX Negative 09/24/2017 Ehrlichia Chaffeensis Antibody Igm 436555 EHRLICHIA CHAFFEENSIS IGM < 1:16 09/22/2017 Ehrlichia Chaffeensis Antibody Igg 476782 EHRLICHIA CHAFFEENSIS IGG <1:64 09/22/2017 Sabiha 545692 SABIHA (BLAIR) SCREEN NONE DETECTED 09/21/2017 Ra Factor Nup779 RA FACTOR <10 IU/ml 09/20/2017 Free T4 Sdj872 FREE T4 0.65 ng/dL 09/20/2017 Sed Rate [...] clear 09/20/2017 None Full Exam - General 1995 Eyes conjunctiva /eyelids Overall: cornea clear 09/20/2017 None Full Exam - General 1994 Eyes conjunctiva /eyelids Overall: eyelids normal 09/20/2017 None Full Exam - General 1995 Ears/Nose/Throat lips/teeth/gingiva Overall: benign lips 09/20/2017 None [...] nourished 09/05/2017 None Full Exam - General 1995 Eyes conjunctiva /eyelids Overall: conjunctiva clear 09/05/2017 [...] Code : 8480-6 BMI: 44.7 Code : 41414-2 Heart Rate 1 : 80 bpm Height: 5'6" SpO2: 94% Weight: 277 lbs 05/08/2018 Blood Pressure 1: 132/84 Code : 8480-6 BMI: 44.7 Code : 00788-5 Heart Rate 1 : 87 bpm Height: 5'6" SpO2: 98% Weight: 277 lbs 02/28/2018 Blood Pressure 1: 130/72 Code : 8480-6 BMI: 43.9 Code : 06112-5 Heart Rate 1 : 65 bpm Height: 5'6" SpO2: 97% Weight: 272 lbs 01/23/2018 Blood Pressure 1: 122/60 Code : 8480-6 BMI: 43.9 Code : 97829-9 Heart Rate 1 : 87 bpm Height: 5'6" SpO2: 97% Weight: 272 lbs 10/25/2017 Blood Pressure 1: 124/76 Code : 8480-6 BMI: 42.9 Code : 72058-1 Heart Rate 1 : 94 bpm Height: 5'6" SpO2: 95% Weight: 266 lbs 09/20/2017 Blood Pressure 1: 144/76 Code : 8480-6 BMI: 43.3 Code : 48463-5 Heart Rate 1 : 91 bpm Height: 5'6" SpO2: 98% Weight: 268 lbs 09/05/2017 Blood Pressure 1: 140/78 Code : 8480-6 BMI: 44.7 Code : 32161-3 Heart Rate 1 : 81 bpm Height: [...] data Encounters Encounter Performer Location Codes Date 67041 EST. PATIENT, LEVEL III Diagnosis: Essential (primary) hypertension[ICD10: I10] Diagnosis: Generalized anxiety disorder[ICD10: F41.1] Diagnosis: Major depressive disorder, single episode, moderate[ICD10: F32.1] Diagnosis: Low back pain[ICD10: M54.5] Diagnosis: Impacted cerumen, left ear[ICD10: H61.22] Neva Chavarria MD, [facility] CPT-4: 00817 05/24/2018 44313 EST. PATIENT, LEVEL IV Diagnosis: Dysuria[ICD10: R30.0] Diagnosis: Generalized anxiety disorder[ICD10: F41.1] Diagnosis: Major depressive disorder, single episode, moderate[ICD10: F32.1] Diagnosis: Polycystic ovarian syndrome[ICD10: E28.2] Diagnosis: Low back pain[ICD10: M54.5] Neva Chavarria MD, [facility] CPT-4 : 40891 05/08/2018 11742 EST. PATIENT, LEVEL IV Diagnosis: Other specified hypothyroidism[ICD10: E03.8] Diagnosis: Generalized anxiety disorder[ICD10: F41.1] Diagnosis: Major depressive disorder, single episode, moderate[ICD10: F32.1] Diagnosis: Essential (primary) hypertension[ICD10: I10] Diagnosis: Other malaise[ICD10: R53.81] Diagnosis: Other fatigue[ICD10: R53.83] Neva Chavarria MD, [facility] CPT-4 : 20902 02/28/2018 61636 EST. PATIENT, LEVEL III Diagnosis: Other specified hypothyroidism[ICD10: E03.8] Diagnosis: Generalized anxiety disorder[ICD10: F41.1] Diagnosis: Major depressive disorder, single episode, moderate[ICD10: F32.1] Neva Chavarria MD, [facility] CPT-4: 19033 01/23/2018 42117 EST. PATIENT, LEVEL IV Diagnosis: Other acute sinusitis[ICD10: J01.80] Diagnosis: Other allergic rhinitis[ICD10: J30.89] Diagnosis: Essential (primary) hypertension[ICD10: I10] Neva Chavarria MD, [facility] CPT-4: 49062 10/25/2017 00689 EST. PATIENT, LEVEL III Diagnosis: Other fatigue[ICD10: R53.83] Diagnosis: Other malaise[ICD10: R53.81] Diagnosis: Essential (primary) hypertension[ICD10: I10] Diagnosis: Generalized anxiety disorder[ICD10: F41.1] Diagnosis: Major depressive disorder, single episode, moderate[ICD10: F32.1] Neva Chavarria MD, [facility] CPT-4: 38726 09/20/2017 OFFICE VISIT, NEW - LEVEL 3 Diagnosis: Essential (primary) hypertension[ICD10: I10] Diagnosis: Generalized anxiety disorder[ICD10: F41.1] Diagnosis: Major depressive disorder, single episode, moderate[ICD10: F32.1] Neva Chavarria MD, [facility] CPT-4: 27012 09/05/2017 Plan of Care Planned Activity Notes Codes Status Date Patient Education: Patient Medication Summary Completed 06/23/2018 Care Plan: SCREENINGMAMMOGRAPHYDIGITAL LOINC : 99741-6 Pending 06/23/2018 Referral: Cathy Manriquez WPtel: [phone] [place], [place] [id number] Referral Initiated 06/14/2018 Patient Education: Patient Medication Summary Completed 06/06/2018 Appointment: Neva Brito WPtel: [address] [place], [place] [id number] (15 min) Moderate 05/31/2018 Visit Plan: Hypertension [...] improve. 05/24/2018 [facility] [phone] [facility] ([facility]) Moderate 05/24/2018 Patient Education: Patient Medication Summary Completed 05/24/2018 Patient Education: Depression Completed 05/24/2018 Patient Education: Back Pain Completed 05/24/2018 [facility] [phone] [phone] [facility] by there office for appt Initiated 05/16/2018 Care Plan: Referral Order SNOMED-CT : [id number] Pending 05/09/2018 Visit Plan: PCOS - will [...] prescribed for this patient. 05/08/2018 Appointment: Neva Britol: [phone] [facility] (15 min) Moderate 05/08/2018 Patient Education: Patient [...] and treat as indicated 02/28/2018 [facility]ment: [facility] [phone] [facility] (30 min) Complex 02/28/2018 Patient Education: Patient [...] of control. 01/23/2018 Appointment: Nev[facility] Brit[facility]Ptel[facility] (15 min) Moderate 01/23/2018 Patient Education: Patient [...] pressure readings at home. 10/25/2017 Appointment: Neva Brito WPtel: [phone] [facility] (15 min) Moderate 10/25/2017 Patient Education: Patient [...] concerns. 09/20/2017 Appointment: Neva Brito WPtel: [phone] [facility] (15 min) Moderate 09/20/2017 Patient Education: Patient [...] medications. 09/05/2017 App[facility]ment: [facility] [phone] [facility] New Patient 09/05/2017 Patient Education: Patient Medication Summary Completed 09/05/2017 Referral: Declan Cathy [facility] [phone] [facility] Referral Initiated Instructions Comment Refer to [...]
--- OUTSIDE RECORDS SUMMARY | 2018-07-07 09:35 | XMS REPORT | CCD ---
Author Author [facility] Address [address] [place] [address] Phone Care Team Providers Care [employer] Name Role Phone PP Unavailable CCM Unavailable Summary Purpose Interface Exchange Insurance Providers Payer name Policy type / Coverage type Covered green party ID Effective Begin Date Effective End Date [facility] [id number] 2017 Unknown Family history Mother Diagnosis Age [...] Codes Condition Status Onset Date Resolved Date Elevated white blood cell count, unspecified ICD-9: [...] Problems Condition Codes Effective Dates Condition Status Elevated white blood cell count, unspecified ICD-9: [...] Fill Instructions Viibryd 40 mg tablet RxNorm: 0187608 1 TABLET(S) PO DAILY 06/1909/16/2018 Active Viibryd 40 mg tablet RxNorm: 9014680 1 Tablet(s) PO daily 05/2206/18/2018 Inactive Viibryd 40 mg tablet RxNorm: 4623296 1 Tablet(s) PO daily 05/2205/21/2018 Inactive tramadol 50 mg tablet RxNorm: 862450 1 Tablet(s) PO QID as needed for pain 05/11/2018 05/15/2018 Inactive Cipro 500 mg tablet RxNorm: 019654 1 Tablet(s) PO BID 201705/20/2018 Inactive Diflucan 150 mg tablet RxNorm: 938083 1 Tablet(s) PO daily 07/201705/17/2018 Inactive Cipro 500 mg tablet RxNorm: 816860 1 Tablet(s) PO BID 201705/10/2018 Inactive Xanax 0.5 mg tablet RxNorm: 659234 1 Tablet(s) PO BID as needed 05/08/2018 08/05/2018 Active naproxen 500 mg tablet RxNorm: 014084 1 Tablet(s) PO BID 201705/12/2018 Inactive baclofen 10 mg tablet RxNorm: 886136 1 Tablet(s) PO TID as needed muscle spasms 05/08/2018 05/12/2018 Inactive lisinopril 20 mg tablet RxNorm: 779216 1 TABLET(S) PO DAILY 02/201810/13/2018 Active Prozac 20 mg capsule RxNorm: 032829 2 CAPSULE(S) PO DAILY 04/1705/16/2018 Inactive Prozac 20 mg capsule RxNorm: 911002 3 Capsule(s) PO daily 03/0204/30/2018 Inactive fluoxetine 60 mg tablet RxNorm: 6497463 1 Tablet(s) PO daily 03/01/2018 Inactive Xanax 0.5 mg tablet RxNorm: 266354 1 Tablet(s) PO BID as needed 02/27/2018 05/07/2018 Inactive Prozac 20 mg capsule RxNorm: 395410 2 Capsule(s) PO daily 02/2003/01/2018 Inactive Prozac 20 mg capsule RxNorm: 375535 1 Capsule(s) PO daily x 1 week then 2 pills daily 01/23/2018 02/19/2018 Inactive Wellbutrin XL 150 mg 24 hr tablet, extended release RxNorm: 056307 1 Tablet(s) PO UD 01/23/2018 05/09/2018 Inactive Xanax 0.5 mg tablet RxNorm: 719630 1 Tablet(s) PO BID 201702/26/2018 Inactive metoprolol succinate ER 25 mg tablet,extended release 24 hr RxNorm: 662871 1 Tablet(s) PO daily 10/31/2017 11/29/2017 Inactive ceftriaxone 500 mg solution for injection RxNorm: 9502371 Inj 10/25/2017 10/25/2017 Inactive Keflex 500 mg capsule RxNorm: 231914 1 Capsule(s) PO TID 201710/31/2017 Inactive Diflucan 150 mg tablet RxNorm: 584543 1 Tablet(s) PO daily 10/31/2017 Inactive Kenalog 40 mg/mL suspension for injection RxNorm: 6389926 Milliliter(s) Inj 10/25/2017 10/25/2017 Inactive Xanax 0.5 mg tablet RxNorm: 203538 1 Tablet(s) PO BID 201712/18/2017 Inactive lisinopril 20 mg tablet RxNorm: 397081 1 TABLET(S) PO DAILY 06/201804/16/2018 Inactive Xanax 0.5 mg tablet RxNorm: 089688 1 Tablet(s) PO BID 201710/18/2017 Inactive lisinopril 20 mg tablet RxNorm: 130418 1 Tablet(s) PO daily 10/19/2017 Inactive Xanax 0.25 mg tablet RxNorm: 868355 1 Tablet(s) PO BID as needed 09/05/2017 09/13/2017 Inactive lisinopril 10 mg tablet RxNorm: 711649 1 Tablet(s) PO daily 09/13/2017 Inactive bupropion HCl XL 300 mg 24 hr tablet, extended release RxNorm: 319808 1 Tablet(s) PO daily 09/05/2017 02/15/2018 Inactive spironolactone 100 mg tablet RxNorm: 802577 1 Tablet(s) PO daily No Start Date Active magnesium oral RxNorm : 6574 oral No Start Date Active Vitamin D3 5,000 unit tablet RxNorm: 252092 1 Tablet(s) PO daily No Start Date Active allopurinol 300 mg tablet RxNorm: 320910 1 Tablet(s) PO daily No Start Date Active liothyronine 5 mcg tablet RxNorm: 706346 1 Tablet(s) PO QAM and 1 early afternoon No Start Date Active metformin 1,000 mg tablet RxNorm: 038065 1 Tablet(s) PO daily No Start Date Active Nature Thyroid 60 mg tablet RxNorm: 146601 1 Tablet(s) PO QAM and 1 early afternoon No Start Date Active Medication Administered Medication Codes Instructions Start Date Status ceftriaxone 500 mg solution for injection RxNorm: 3296680 10/25/2017 No longer Active Kenalog 40 mg/mL suspension for injection RxNorm: 2186264 Milliliter 10/25/2017 No longer Active Immunizations No Immunization data Assessments Condition Codes Effective Dates Elevated white blood cell count, unspecified ICD-10: [...] 31.8 pg 06/14/2018 Cbc With Differential Ord2 Morgan% 5.6 % 06/14/2018 Cbc With Differential Ord2 [...] 3.34 K/ul 06/14/2018 Cbc With Differential Ord2 Morgan ABS# 0.8 K/ul 06/14/2018 Cbc With Differential Ord2 Eos ABS# 0.2 K/ul 06/14/2018 Cbc With Differential Ord2 Baso ABS# 0.0 K/ul 06/14/2018 Comp Metabolic Xeu496 NA 137 mEq/L 05/24/2018 Comp Metabolic Rno413 K 4.3 mEq/L 05/24/2018 Comp Metabolic Ovv170 CL 99 mEq/L 05/24/2018 Comp Metabolic Vii113 CO2 29.0 mEq/L 05/24/2018 Comp Metabolic Npe142 ANION GAP 13 05/24/2018 Comp Metabolic Rsu418 GLUCOSE 85 mg/dL 05/24/2018 Comp Metabolic Mem723 Creat 0.7 mg/dL 05/24/2018 Comp Metabolic Yax147 eGFR 94 ml/min/1.73m2 05/24/2018 Comp Metabolic Oje210 BUN 18 mg/dL 05/24/2018 Comp Metabolic Ezm622 B/C Ratio 25.0 Ratio 05/24/2018 Comp Metabolic Xif277 CALCIUM 9.8 mg/dL 05/24/2018 Comp Metabolic Zfr136 ALK PHOS 67 U/L 05/24/2018 Comp Metabolic Uop370 AST(SGOT) 19 U/L 05/24/2018 Comp Metabolic Eez922 ALT(SGPT) 20 U/L 05/24/2018 Comp Metabolic Ucn823 BILI T 0.3 mg/dL 05/24/2018 Comp Metabolic Qwf853 ALBUMIN 4.4 g/dL 05/24/2018 Comp Metabolic Dch412 TPRO 7.4 g/dL 05/24/2018 Comp Metabolic Uht534 GLOB 3.0 g/dL 05/24/2018 Comp Metabolic Lqs634 A/G Ratio 1.5 Ratio 05/24/2018 Comp Metabolic Zks731 Osmo 275 mOsmo 05/24/2018 Lipid Ord30 CHOL [...] 31.7 pg 05/24/2018 Cbc With Differential Ord2 Morgan% 5.1 % 05/24/2018 Cbc With Differential Ord2 [...] 3.47 K/ul 05/24/2018 Cbc With Differential Ord2 Morgan ABS# 0.9 K/ul 05/24/2018 Cbc With Differential Ord2 Eos ABS# 0.2 K/ul 05/24/2018 Cbc With Differential Ord2 Baso ABS# 0.0 K/ul 05/24/2018 Culture Urine [id number] URINE CULTURE SEE NOTES 05/11/2018 Culture Urine [id number] Continued Results 05/11/2018 Urine Culture Ucult Complete >100,000 col/ml aerobic growth sent to ref lab 05/09/2018 Total T3 Ord42 TT3 2.60 ng/ml 02/28/2018 Free T4 Xea345 FREE T4 0.85 ng/dL 02/28/2018 Tsh Ord6 TSH (3rd IS) 1.89 uIU/mL 02/28/2018 %Hba1C Kvy334 % HbA1c 90116-7 5.7 % 02/28/2018 %Hba1C Xmy800 Gluc Ave 117 mg/dL 02/28/2018 [place]ymes Disease Total Antibodies With Western Blot Reflex [id number] B. BURGDORFERI, IGG/IGM 0.139 09/26/2017 [place]ymes Disease Total Antibodies With Western Blot Reflex [id number] 09/26/2017 [place] Spotted Fever Igg/Igm 352533 [place] SPOTTED FEVER IGM EIA . 09/24/2017 [place] Spotted Fever Igg/Igm 867858 RMSF, IGM 0.28 index 09/24/2017 [place] Spotted Fever Igg/Igm 599064 [place] SPOTTED FEVER IGG EIA FLEX . 09/24/2017 [place] Spotted Fever Igg/Igm 763712 RMSF, IGG SCREEN-FLEX Negative 09/24/2017 Ehrlichia Chaffeensis Antibody Igm 398099 EHRLICHIA CHAFFEENSIS IGM < 1:16 09/22/2017 Ehrlichia Chaffeensis Antibody Igg 201275 EHRLICHIA CHAFFEENSIS IGG <1:64 09/22/2017 [place] 368704 SABIHA (BLAIR) SCREEN NONE DETECTED 09/21/2017 Ra Factor Ouq177 RA FACTOR <10 IU/ml 09/20/2017 Free T4 Jvs156 FREE T4 0.65 ng/dL 09/20/2017 Sed Rate [...] lips 09/20/2017 None Full Exam - General 1995 Ears/Nose/Throat oral cavity/pharynx/larynx Overall: oral mucosa clear [...] Code : 8480-6 BMI: 44.7 Code : 30079-5 Heart Rate 1 : 80 bpm Height: 5'6" SpO2: 94% Weight: 277 lbs 05/08/2018 Blood Pressure 1: 132/84 Code : 8480-6 BMI: 44.7 Code : 93854-6 Heart Rate 1 : 87 bpm Height: 5'6" SpO2: 98% Weight: 277 lbs 02/28/2018 Blood Pressure 1: 130/72 Code : 8480-6 BMI: 43.9 Code : 51097-9 Heart Rate 1 : 65 bpm Height: 5'6" SpO2: 97% Weight: 272 lbs 01/23/2018 Blood Pressure 1: 122/60 Code : 8480-6 BMI: 43.9 Code : 73026-3 Heart Rate 1 : 87 bpm Height: 5'6" SpO2: 97% Weight: 272 lbs 10/25/2017 Blood Pressure 1: 124/76 Code : 8480-6 BMI: 42.9 Code : 08861-8 Heart Rate 1 : 94 bpm Height: 5'6" SpO2: 95% Weight: 266 lbs 09/20/2017 Blood Pressure 1: 144/76 Code : 8480-6 BMI: 43.3 Code : 87267-8 Heart Rate 1 : 91 bpm Height: 5'6" SpO2: 98% Weight: 268 lbs 09/05/2017 Blood Pressure 1: 140/78 Code : 8480-6 BMI: 44.7 Code : 00206-9 Heart Rate 1 : 81 bpm Height: [...] data Encounters Encounter Performer Location Codes Date 94566 EST. PATIENT, LEVEL III Diagnosis: Essential (primary) hypertension[ICD10: I10] Diagnosis: Generalized anxiety disorder[ICD10: F41.1] Diagnosis: Major depressive disorder, single episode, moderate[ICD10: F32.1] Diagnosis: Low back pain[ICD10: M54.5] Diagnosis: Impacted cerumen, left ear[ICD10: H61.22] Neva Chavarria MD, [facility] CPT-4: 51998 05/24/2018 57225 EST. PATIENT, LEVEL IV Diagnosis: Dysuria[ICD10: R30.0] Diagnosis: Generalized anxiety disorder[ICD10: F41.1] Diagnosis: Major depressive disorder, single episode, moderate[ICD10: F32.1] Diagnosis: Polycystic ovarian syndrome[ICD10: E28.2] Diagnosis: Low back pain[ICD10: M54.5] Neva Chavarria MD, [facility] CPT-4 : 47415 05/08/2018 58008 EST. PATIENT, LEVEL IV Diagnosis: Other specified hypothyroidism[ICD10: E03.8] Diagnosis: Generalized anxiety disorder[ICD10: F41.1] Diagnosis: Major depressive disorder, single episode, moderate[ICD10: F32.1] Diagnosis: Essential (primary) hypertension[ICD10: I10] Diagnosis: Other malaise[ICD10: R53.81] Diagnosis: Other fatigue[ICD10: R53.83] Neva Chavarria MD, [facility] CPT-4 : 02583 02/28/2018 99323 EST. PATIENT, LEVEL III Diagnosis: Other specified hypothyroidism[ICD10: E03.8] Diagnosis: Generalized anxiety disorder[ICD10: F41.1] Diagnosis: Major depressive disorder, single episode, moderate[ICD10: F32.1] Neva Chavarria MD, [facility] CPT-4: 46198 01/23/2018 55254 EST. PATIENT, LEVEL IV Diagnosis: Other acute sinusitis[ICD10: J01.80] Diagnosis: Other allergic rhinitis[ICD10: J30.89] Diagnosis: Essential (primary) hypertension[ICD10: I10] Neva Chavarria MD, [facility] CPT-4: 12069 10/25/2017 69889 EST. PATIENT, LEVEL III Diagnosis: Other fatigue[ICD10: R53.83] Diagnosis: Other malaise[ICD10: R53.81] Diagnosis: Essential (primary) hypertension[ICD10: I10] Diagnosis: Generalized anxiety disorder[ICD10: F41.1] Diagnosis: Major depressive disorder, single episode, moderate[ICD10: F32.1] [facility] CPT-4: 29415 09/20/2017 OFFICE VISIT, NEW - LEVEL 3 Diagnosis: Essential (primary) hypertension[ICD10: I10] Diagnosis: Generalized anxiety disorder[ICD10: F41.1] Diagnosis: Major depressive disorder, single episode, moderate[ICD10: F32.1] [facility] CPT-4: 47612 09/05/2017 Plan of Care Planned Activity Notes Codes Status Date Referral: [phone] [id number] Referral Initiated 06/14/2018 Patient Education: Patient Medication Summary Completed 06/06/2018 [phone] [id number] (15 min) Moderate 05/31/2018 Visit Plan: Hypertension [...] improve. 05/24/2018 App[facility]ment: [facility] [phone] [id number] (15 min) Moderate 05/24/2018 Patient Education: Patient Medication Summary Completed 05/24/2018 Patient Education: Depression Completed 05/24/2018 Patient Education: Back Pain Completed 05/24/2018 Referral: Cathy Manriquez WPtel: [phone] [place], [place] [phone] pt will be called by there office for appt Initiated 05/16/2018 Care Plan: Referral Order SNOMED-CT : [id number] Pending 05/09/2018 Visit Plan: PCOS - will [...] this patient. 05/08/2018 App[facility]ment: [facility] [phone] [id number] (15 min) Moderate 05/08/2018 Patient Education: Patient [...] as indicated 02/28/2018 App[facility]ment: [facility] [phone] [facility] (30 min) Complex 02/28/2018 Patient Education: [...] of control. 01/23/2018 Appointment: [facility] [phone] [id number] (15 min) Moderate 01/23/2018 Patient Education: [...] at home. 10/25/2017 Appointment: Neva Brito WPtel: [address] [place], [place] [id number] (15 min) Moderate 10/25/2017 Patient Education: Patient [...] or concerns. 09/20/2017 Appointment: Neva Brito WPtel: [facility] (15 min) Moderate 09/20/2017 Patient Education: Patient [...] above medications. 09/05/2017 Appointment: Neva Brito WPtel: [address] [place], [place] [phone] New Patient 09/05/2017 Patient Education: Patient Medication Summary Completed 09/05/2017 Referral: Cathy Manriquez WPtel: [phone] [place], [place] [phone] Referral Initiated Instructions Comment Refer to OB [...]
--- OUTSIDE RECORDS SUMMARY | 2018-07-07 09:36 | XMS REPORT | CCD ---
Author Author [facility] Address [address] [place] [address] Phone Care Team Providers Care Belt Measurer Name Role Phone PP Unavailable CCM Unavailable Summary Purpose Interface Exchange Insurance Providers Payer name Policy type / Coverage type Covered libertarian ID Effective Begin Date Effective End Date [facility] [id number] 2017 Unknown Family history Mother Diagnosis Age [...] Fill Instructions Viibryd 40 mg tablet RxNorm: 2249899 1 Tablet(s) PO daily 05/2206/20/2018 Active Viibryd 40 mg tablet RxNorm: 7224264 1 Tablet(s) PO daily 05/2205/21/2018 Inactive tramadol 50 mg tablet RxNorm: 051267 1 Tablet(s) PO QID as needed for pain 05/11/2018 05/15/2018 Inactive Cipro 500 mg tablet RxNorm: 390450 1 Tablet(s) PO BID 201705/20/2018 Inactive Diflucan 150 mg tablet RxNorm: 163801 1 Tablet(s) PO daily 07/201705/17/2018 Inactive Cipro 500 mg tablet RxNorm: 916285 1 Tablet(s) PO BID 201705/10/2018 Inactive Xanax 0.5 mg tablet RxNorm: 246043 1 Tablet(s) PO BID as needed 05/08/2018 08/05/2018 Active naproxen 500 mg tablet RxNorm: 657856 1 Tablet(s) PO BID 201705/12/2018 Inactive baclofen 10 mg tablet RxNorm: 768261 1 Tablet(s) PO TID as needed muscle spasms 05/08/2018 05/12/2018 Inactive lisinopril 20 mg tablet RxNorm: 873235 1 TABLET(S) PO DAILY 02/201810/13/2018 Active Prozac 20 mg capsule RxNorm: 959632 2 CAPSULE(S) PO DAILY 04/1705/16/2018 Inactive Prozac 20 mg capsule RxNorm: 170945 3 Capsule(s) PO daily 03/0204/30/2018 Inactive fluoxetine 60 mg tablet RxNorm: 1577864 1 Tablet(s) PO daily 03/01/2018 Inactive Xanax 0.5 mg tablet RxNorm: 265352 1 Tablet(s) PO BID as needed 02/27/2018 05/07/2018 Inactive Prozac 20 mg capsule RxNorm: 674314 2 Capsule(s) PO daily 02/2003/01/2018 Inactive Prozac 20 mg capsule RxNorm: 673513 1 Capsule(s) PO daily x 1 week then 2 pills daily 01/23/2018 02/19/2018 Inactive Wellbutrin XL 150 mg 24 hr tablet, extended release RxNorm: 484745 1 Tablet(s) PO UD 01/23/2018 05/09/2018 Inactive Xanax 0.5 mg tablet RxNorm: 410494 1 Tablet(s) PO BID 201702/26/2018 Inactive metoprolol succinate ER 25 mg tablet,extended release 24 hr RxNorm: 568418 1 Tablet(s) PO daily 10/31/2017 11/29/2017 Inactive ceftriaxone 500 mg solution for injection RxNorm: 6723168 Inj 10/25/2017 10/25/2017 Inactive Keflex 500 mg capsule RxNorm: 510763 1 Capsule(s) PO TID 201710/31/2017 Inactive Diflucan 150 mg tablet RxNorm: 755872 1 Tablet(s) PO daily 10/31/2017 Inactive Kenalog 40 mg/mL suspension for injection RxNorm: 7190951 Milliliter(s) Inj 10/25/2017 10/25/2017 Inactive Xanax 0.5 mg tablet RxNorm: 151398 1 Tablet(s) PO BID 201712/18/2017 Inactive lisinopril 20 mg tablet RxNorm: 223542 1 TABLET(S) PO DAILY 06/201804/16/2018 Inactive Xanax 0.5 mg tablet RxNorm: 182392 1 Tablet(s) PO BID 201710/18/2017 Inactive lisinopril 20 mg tablet RxNorm: 900947 1 Tablet(s) PO daily 10/19/2017 Inactive Xanax 0.25 mg tablet RxNorm: 843310 1 Tablet(s) PO BID as needed 09/05/2017 09/13/2017 Inactive lisinopril 10 mg tablet RxNorm: 458803 1 Tablet(s) PO daily 09/13/2017 Inactive bupropion HCl XL 300 mg 24 hr tablet, extended release RxNorm: 452080 1 Tablet(s) PO daily 09/05/2017 02/15/2018 Inactive spironolactone 100 mg tablet RxNorm: 311766 1 Tablet(s) PO daily No Start Date Active magnesium oral RxNorm : 6574 oral No Start Date Active Vitamin D3 5,000 unit tablet RxNorm: 647743 1 Tablet(s) PO daily No Start Date Active allopurinol 300 mg tablet RxNorm: 114974 1 Tablet(s) PO daily No Start Date Active liothyronine 5 mcg tablet RxNorm: 800199 1 Tablet(s) PO QAM and 1 early afternoon No Start Date Active metformin 1,000 mg tablet RxNorm: 413265 1 Tablet(s) PO daily No Start Date Active Nature Thyroid 60 mg tablet RxNorm: 100004 1 Tablet(s) PO QAM and 1 early afternoon No Start Date Active Medication Administered Medication Codes Instructions Start Date Status ceftriaxone 500 mg solution for injection RxNorm: 0065637 10/25/2017 No longer Active Kenalog 40 mg/mL suspension for injection RxNorm: 5499029 Milliliter 10/25/2017 No longer Active Immunizations No [...] Observation Code Item Item Code Result Date Lipid Ord30 CHOL 164 mg/dL 05/24/2018 Lipid [...] 20.7 % 05/24/2018 Cbc With Differential Ord2 Lawrence% 5.1 % 05/24/2018 Cbc With Differential Ord2 MCH 31.7 pg 05/24/2018 Cbc With Differential Ord2 MCHC 33.3 pg 05/24/2018 Cbc With Differential Ord2 Eos% 1.1 % 05/24/2018 Cbc With Differential Ord2 PLT 383 K/ul 05/24/2018 Cbc With Differential Ord2 Baso% 0.1 % 05/24/2018 Cbc With Differential Ord2 RDW 14.0 % 05/24/2018 Cbc With Differential Ord2 Neut ABS# 12.24 K/ul 05/24/2018 Cbc With Differential Ord2 Lymph ABS# 3.47 K/ul 05/24/2018 Cbc With Differential Ord2 Lawrence ABS# 0.9 K/ul 05/24/2018 Cbc With Differential Ord2 Eos ABS# 0.2 K/ul 05/24/2018 Cbc With Differential Ord2 Baso ABS# 0.0 K/ul 05/24/2018 Comp Metabolic Hod691 NA 137 mEq/L 05/24/2018 Comp Metabolic Npe609 K 4.3 mEq/L 05/24/2018 Comp Metabolic Xhf377 CL 99 mEq/L 05/24/2018 Comp Metabolic Fmm182 CO2 29.0 mEq/L 05/24/2018 Comp Metabolic Bzw478 ANION GAP 13 05/24/2018 Comp Metabolic Ebj799 GLUCOSE 85 mg/dL 05/24/2018 Comp Metabolic Uqv293 Creat 0.7 mg/dL 05/24/2018 Comp Metabolic Ucs871 eGFR 94 ml/min/1.73m2 05/24/2018 Comp Metabolic Jyt222 BUN 18 mg/dL 05/24/2018 Comp Metabolic Uiw639 B/C Ratio 25.0 Ratio 05/24/2018 Comp Metabolic Duk514 CALCIUM 9.8 mg/dL 05/24/2018 Comp Metabolic Vda858 ALK PHOS 67 U/L 05/24/2018 Comp Metabolic Xdv736 AST(SGOT) 19 U/L 05/24/2018 Comp Metabolic Nju736 ALT(SGPT) 20 U/L 05/24/2018 Comp Metabolic Cue674 BILI T 0.3 mg/dL 05/24/2018 Comp Metabolic Hzm351 ALBUMIN 4.4 g/dL 05/24/2018 Comp Metabolic Cpo011 TPRO 7.4 g/dL 05/24/2018 Comp Metabolic Ppp447 GLOB 3.0 g/dL 05/24/2018 Comp Metabolic Vfh486 A/G Ratio 1.5 Ratio 05/24/2018 Comp Metabolic Qcp537 Osmo 275 mOsmo 05/24/2018 Culture Urine [id number] URINE CULTURE SEE NOTES 05/11/2018 Culture Urine [id number] Continued Results 05/11/2018 Urine Culture Ucult Complete >100,000 col/ml aerobic growth sent to ref lab 05/09/2018 Total T3 Ord42 TT3 2.60 ng/ml 02/28/2018 Free T4 Irr854 FREE T4 0.85 ng/dL 02/28/2018 Tsh Ord6 TSH (3rd IS) 1.89 uIU/mL 02/28/2018 %Hba1C Qhs139 % HbA1c 81427-5 5.7 % 02/28/2018 %Hba1C Bbr469 Gluc Ave 117 mg/dL 02/28/2018 Lymes Disease Total Antibodies With Western Blot Reflex [id number] B. BURGDORFERI, IGG/IGM 0.139 09/26/2017 Lymes Disease Total Antibodies With Western Blot Reflex [id number] 09/26/2017 [place] Spotted Fever Igg/Igm 507704 [place] SPOTTED FEVER IGM EIA . 09/24/2017 [place] Spotted Fever Igg/Igm 339612 RMSF, IGM 0.28 index 09/24/2017 [place] Spotted Fever Igg/Igm 265949 [place] SPOTTED FEVER IGG EIA FLEX . 09/24/2017 [place] Spotted Fever Igg/Igm 939630 RMSF, IGG SCREEN-FLEX Negative 09/24/2017 Ehrlichia Chaffeensis Antibody Igm 419712 EHRLICHIA CHAFFEENSIS IGM < 1:16 09/22/2017 Ehrlichia Chaffeensis Antibody Igg 818669 EHRLICHIA CHAFFEENSIS IGG <1:64 09/22/2017 Sabiha 918901 SABIHA (BLAIR) SCREEN NONE DETECTED 09/21/2017 Ra Factor Jcv973 RA FACTOR <10 IU/ml 09/20/2017 Free T4 Rhk618 FREE T4 0.65 ng/dL 09/20/2017 Sed Rate [...] Code : 8480-6 BMI: 44.7 Code : 50918-8 Heart Rate 1 : 80 bpm Height: 5'6" SpO2: 94% Weight: 277 lbs 05/08/2018 Blood Pressure 1: 132/84 Code : 8480-6 BMI: 44.7 Code : 95817-5 Heart Rate 1 : 87 bpm Height: 5'6" SpO2: 98% Weight: 277 lbs 02/28/2018 Blood Pressure 1: 130/72 Code : 8480-6 BMI: 43.9 Code : 54824-9 Heart Rate 1 : 65 bpm Height: 5'6" SpO2: 97% Weight: 272 lbs 01/23/2018 Blood Pressure 1: 122/60 Code : 8480-6 BMI: 43.9 Code : 70243-6 Heart Rate 1 : 87 bpm Height: 5'6" SpO2: 97% Weight: 272 lbs 10/25/2017 Blood Pressure 1: 124/76 Code : 8480-6 BMI: 42.9 Code : 94525-1 Heart Rate 1 : 94 bpm Height: 5'6" SpO2: 95% Weight: 266 lbs 09/20/2017 Blood Pressure 1: 144/76 Code : 8480-6 BMI: 43.3 Code : 82598-4 Heart Rate 1 : 91 bpm Height: 5'6" SpO2: 98% Weight: 268 lbs 09/05/2017 Blood Pressure 1: 140/78 Code : 8480-6 BMI: 44.7 Code : 65913-8 Heart Rate 1 : 81 bpm Height: [...] data Encounters Encounter Performer Location Codes Date 34231 EST. PATIENT, LEVEL III Diagnosis: Essential (primary) hypertension[ICD10: I10] Diagnosis: Generalized anxiety disorder[ICD10: F41.1] Diagnosis: Major depressive disorder, single episode, moderate[ICD10: F32.1] Diagnosis: Low back pain[ICD10: M54.5] Diagnosis: Impacted cerumen, left ear[ICD10: H61.22] Neva Chavarria MD, [facility] CPT-4: 64775 05/24/2018 04093 EST. PATIENT, LEVEL IV Diagnosis: Dysuria[ICD10: R30.0] Diagnosis: Generalized anxiety disorder[ICD10: F41.1] Diagnosis: Major depressive disorder, single episode, moderate[ICD10: F32.1] Diagnosis: Polycystic ovarian syndrome[ICD10: E28.2] Diagnosis: Low back pain[ICD10: M54.5] Neva Chavarria MD, [facility] CPT-4 : 82741 05/08/2018 81194 EST. PATIENT, LEVEL IV Diagnosis: Other specified hypothyroidism[ICD10: E03.8] Diagnosis: Generalized anxiety disorder[ICD10: F41.1] Diagnosis: Major depressive disorder, single episode, moderate[ICD10: F32.1] Diagnosis: Essential (primary) hypertension[ICD10: I10] Diagnosis: Other malaise[ICD10: R53.81] Diagnosis: Other fatigue[ICD10: R53.83] Neva Chavarria MD, [facility] CPT-4 : 87961 02/28/2018 40493 EST. PATIENT, LEVEL III Diagnosis: Other specified hypothyroidism[ICD10: E03.8] Diagnosis: Generalized anxiety disorder[ICD10: F41.1] Diagnosis: Major depressive disorder, single episode, moderate[ICD10: F32.1] Neva Chavarria MD, [facility] CPT-4: 95388 01/23/2018 88675 EST. PATIENT, LEVEL IV Diagnosis: Other acute sinusitis[ICD10: J01.80] Diagnosis: Other allergic rhinitis[ICD10: J30.89] Diagnosis: Essential (primary) hypertension[ICD10: I10] [facility] CPT-4: 98227 10/25/2017 14560 EST. PATIENT, LEVEL III Diagnosis: Other fatigue[ICD10: R53.83] Diagnosis: Other malaise[ICD10: R53.81] Diagnosis: Essential (primary) hypertension[ICD10: I10] Diagnosis: Generalized anxiety disorder[ICD10: F41.1] Diagnosis: Major depressive disorder, single episode, moderate[ICD10: F32.1] Neva Chavarria MD, [facility] CPT-4: 21352 09/20/2017 OFFICE VISIT, NEW - LEVEL 3 Diagnosis: Essential (primary) hypertension[ICD10: I10] Diagnosis: Generalized anxiety disorder[ICD10: F41.1] Diagnosis: Major depressive disorder, single episode, moderate[ICD10: F32.1] eNva Chavarria MD, [facility] CPT-4: 46740 09/05/2017 Plan of Care Planned Activity Notes Codes Status Date Referral: Cathy Manriquez WPtel: [address] [place], [place] [id number] Referral Initiated 06/14/2018 Patient Education: Patient Medication Summary Completed 06/06/2018 Care Plan: Cbc With Differential Pending 06/06/2018 Appointment: [facility] ([facility] min) Moderate 05/31/2018 Visit Plan: [...] improve. 05/24/2018 Appointment: Neva Brito WPtel: [phone] [facility] (15 min) Moderate 05/24/2018 Patient Education: Patient Medication Summary Completed 05/24/2018 Patient Education: Depression Completed 05/24/2018 Patient Education: Back Pain Completed 05/24/2018 Referral: Cathy Manriquez WPtel: [phone] [place], [place] [id number] pt will be called by there office for appt Initiated 05/16/2018 Care Plan: Referral Order SNOMED-CT : [id number] Pending 05/09/2018 Visit Plan: PCOS - will [...] patient. 05/08/2018 App[facility]ment: [facility] [phone] [facility] ([facility] min) Moderate 05/08/2018 Patient Education: [...] as indicated 02/28/2018 App[facility]ment: [facility] [phone] [facility] ([facility] min) Complex 02/28/2018 Patient Education: [...] control. 01/23/2018 App[facility]ment: [facility] [phone] [facility] ([facility] min) Moderate 01/23/2018 Patient Education: [...] home. 10/25/2017 Appointment: Neva Brito WPtel: [phone] [facility] (15 min) Moderate 10/25/2017 Patient Education: Patient [...] concerns. 09/20/2017 App[facility]ment: [facility] [phone] [facility] ([facility] min) Moderate 09/20/2017 Patient Education: Patient [...] treatment with the above medications. 09/05/2017 App[facility]ment: [facility] [phone] [facility] [facility] 09/05/2017 Patient Education: Patient Medication Summary Completed 09/05/2017 [facility]: [phone] [facility] Ref[facility] Initiated Instructions Comment Refer to OB [...]
--- OUTSIDE RECORDS SUMMARY | 2018-07-07 09:37 | XMS REPORT | CCD ---
Author Author [facility] Address [address] [place] [address] Phone Care Team Providers [employer] Driver Name Role Phone PP Unavailable CCM Unavailable Summary Purpose Interface Exchange Insurance Providers Payer name Policy type / Coverage type Covered republican ID Effective Begin Date Effective End Date [facility] [id number] 2017 Unknown Family history Mother Diagnosis Age [...] Fill Instructions Viibryd 40 mg tablet RxNorm: 5577272 1 Tablet(s) PO daily 05/2206/20/2018 Active Viibryd 40 mg tablet RxNorm: 5878037 1 Tablet(s) PO daily 05/2205/21/2018 Inactive tramadol 50 mg tablet RxNorm: 055223 1 Tablet(s) PO QID as needed for pain 05/11/2018 05/15/2018 Inactive Cipro 500 mg tablet RxNorm: 113686 1 Tablet(s) PO BID 201705/20/2018 Inactive Diflucan 150 mg tablet RxNorm: 355342 1 Tablet(s) PO daily 07/201705/17/2018 Inactive Cipro 500 mg tablet RxNorm: 101949 1 Tablet(s) PO BID 201705/10/2018 Inactive Xanax 0.5 mg tablet RxNorm: 315994 1 Tablet(s) PO BID as needed 05/08/2018 08/05/2018 Active naproxen 500 mg tablet RxNorm: 159972 1 Tablet(s) PO BID 201705/12/2018 Inactive baclofen 10 mg tablet RxNorm: 794978 1 Tablet(s) PO TID as needed muscle spasms 05/08/2018 05/12/2018 Inactive lisinopril 20 mg tablet RxNorm: 696104 1 TABLET(S) PO DAILY 02/201810/13/2018 Active Prozac 20 mg capsule RxNorm: 907809 2 CAPSULE(S) PO DAILY 04/1705/16/2018 Inactive Prozac 20 mg capsule RxNorm: 256374 3 Capsule(s) PO daily 03/0204/30/2018 Inactive fluoxetine 60 mg tablet RxNorm: 3238237 1 Tablet(s) PO daily 03/01/2018 Inactive Xanax 0.5 mg tablet RxNorm: 723878 1 Tablet(s) PO BID as needed 02/27/2018 05/07/2018 Inactive Prozac 20 mg capsule RxNorm: 124768 2 Capsule(s) PO daily 02/2003/01/2018 Inactive Prozac 20 mg capsule RxNorm: 991571 1 Capsule(s) PO daily x 1 week then 2 pills daily 01/23/2018 02/19/2018 Inactive Wellbutrin XL 150 mg 24 hr tablet, extended release RxNorm: 305030 1 Tablet(s) PO UD 01/23/2018 05/09/2018 Inactive Xanax 0.5 mg tablet RxNorm: 824322 1 Tablet(s) PO BID 201702/26/2018 Inactive metoprolol succinate ER 25 mg tablet,extended release 24 hr RxNorm: 255534 1 Tablet(s) PO daily 10/31/2017 11/29/2017 Inactive ceftriaxone 500 mg solution for injection RxNorm: 7018344 Inj 10/25/2017 10/25/2017 Inactive Keflex 500 mg capsule RxNorm: 877022 1 Capsule(s) PO TID 201710/31/2017 Inactive Diflucan 150 mg tablet RxNorm: 270523 1 Tablet(s) PO daily 10/31/2017 Inactive Kenalog 40 mg/mL suspension for injection RxNorm: 9741151 Milliliter(s) Inj 10/25/2017 10/25/2017 Inactive Xanax 0.5 mg tablet RxNorm: 963560 1 Tablet(s) PO BID 201712/18/2017 Inactive lisinopril 20 mg tablet RxNorm: 933814 1 TABLET(S) PO DAILY 06/201804/16/2018 Inactive Xanax 0.5 mg tablet RxNorm: 710297 1 Tablet(s) PO BID 201710/18/2017 Inactive lisinopril 20 mg tablet RxNorm: 967038 1 Tablet(s) PO daily 10/19/2017 Inactive Xanax 0.25 mg tablet RxNorm: 985569 1 Tablet(s) PO BID as needed 09/05/2017 09/13/2017 Inactive lisinopril 10 mg tablet RxNorm: 525771 1 Tablet(s) PO daily 09/13/2017 Inactive bupropion HCl XL 300 mg 24 hr tablet, extended release RxNorm: 665390 1 Tablet(s) PO daily 09/05/2017 02/15/2018 Inactive spironolactone 100 mg tablet RxNorm: 459031 1 Tablet(s) PO daily No Start Date Active magnesium oral RxNorm : 6574 oral No Start Date Active Vitamin D3 5,000 unit tablet RxNorm: 072473 1 Tablet(s) PO daily No Start Date Active allopurinol 300 mg tablet RxNorm: 239250 1 Tablet(s) PO daily No Start Date Active liothyronine 5 mcg tablet RxNorm: 789182 1 Tablet(s) PO QAM and 1 early afternoon No Start Date Active metformin 1,000 mg tablet RxNorm: 446110 1 Tablet(s) PO daily No Start Date Active Nature Thyroid 60 mg tablet RxNorm: 300557 1 Tablet(s) PO QAM and 1 early afternoon No Start Date Active Medication Administered Medication Codes Instructions Start Date Status ceftriaxone 500 mg solution for injection RxNorm: 2621691 10/25/2017 No longer Active Kenalog 40 mg/mL suspension for injection RxNorm: 1538528 Milliliter 10/25/2017 No longer Active Immunizations No [...] Observation Code Item Item Code Result Date Comp Metabolic Afq153 NA 137 mEq/L 05/24/2018 Comp Metabolic Rtm335 K 4.3 mEq/L 05/24/2018 Comp Metabolic Maw945 CL 99 mEq/L 05/24/2018 Comp Metabolic Zcj769 CO2 29.0 mEq/L 05/24/2018 Comp Metabolic Bue918 ANION GAP 13 05/24/2018 Comp Metabolic Kcr585 GLUCOSE 85 mg/dL 05/24/2018 Comp Metabolic Zen425 Creat 0.7 mg/dL 05/24/2018 Comp Metabolic Gum215 eGFR 94 ml/min/1.73m2 05/24/2018 Comp Metabolic Hhn419 BUN 18 mg/dL 05/24/2018 Comp Metabolic Knc919 B/C Ratio 25.0 Ratio 05/24/2018 Comp Metabolic Rrm524 CALCIUM 9.8 mg/dL 05/24/2018 Comp Metabolic Zeu248 ALK PHOS 67 U/L 05/24/2018 Comp Metabolic Mqz265 AST(SGOT) 19 U/L 05/24/2018 Comp Metabolic Mlr701 ALT(SGPT) 20 U/L 05/24/2018 Comp Metabolic Nrq473 BILI T 0.3 mg/dL 05/24/2018 Comp Metabolic Qcy591 ALBUMIN 4.4 g/dL 05/24/2018 Comp Metabolic Nym122 TPRO 7.4 g/dL 05/24/2018 Comp Metabolic Tgf961 GLOB 3.0 g/dL 05/24/2018 Comp Metabolic Fwf210 A/G Ratio 1.5 Ratio 05/24/2018 Comp Metabolic Yci532 Osmo 275 mOsmo 05/24/2018 Lipid Ord30 CHOL 164 mg/dL 05/24/2018 Lipid Ord30 HDL 43.0 mg/dl 05/24/2018 Lipid Ord30 TRIG 164 mg/dL 05/24/2018 Lipid Ord30 LDL 88 mg/dL 05/24/2018 Lipid Ord30 C/HDL 3.8 Ratio 05/24/2018 Cbc With Differential Ord2 WBC 16.78 K/ul 05/24/2018 Cbc With Differential Ord2 RBC 4.26 M/ul 05/24/2018 Cbc With Differential Ord2 HGB 13.5 g/dl 05/24/2018 Cbc With Differential Ord2 HCT 40.6 % 05/24/2018 Cbc With Differential Ord2 Neut% 73.0 % 05/24/2018 Cbc With Differential Ord2 MCV 95.3 fl 05/24/2018 Cbc With Differential Ord2 Lymph% 20.7 % 05/24/2018 Cbc With Differential Ord2 Randolph% 5.1 % 05/24/2018 Cbc With Differential Ord2 [...] 3.47 K/ul 05/24/2018 Cbc With Differential Ord2 Randolph ABS# 0.9 K/ul 05/24/2018 Cbc With Differential Ord2 Eos ABS# 0.2 K/ul 05/24/2018 Cbc With Differential Ord2 Baso ABS# 0.0 K/ul 05/24/2018 Culture Urine [id number] URINE CULTURE SEE NOTES 05/11/2018 Culture Urine [id number] Continued Results 05/11/2018 Urine Culture Ucult Complete >100,000 col/ml aerobic growth sent to ref lab 05/09/2018 Total T3 Ord42 TT3 2.60 ng/ml 02/28/2018 Free T4 Caa219 FREE T4 0.85 ng/dL 02/28/2018 Tsh Ord6 TSH (3rd IS) 1.89 uIU/mL 02/28/2018 %Hba1C Ubo038 % HbA1c 45651-3 5.7 % 02/28/2018 %Hba1C Tdu318 Gluc Ave 117 mg/dL 02/28/2018 Lymes Disease Total Antibodies With Western Blot Reflex [id number] B. BURGDORFERI, IGG/IGM 0.139 09/26/2017 Lymes Disease Total Antibodies With Western Blot Reflex [id number] 09/26/2017 [place] Spotted Fever Igg/Igm 785169 [place] SPOTTED FEVER IGM EIA . 09/24/2017 [place] Spotted Fever Igg/Igm 069658 RMSF, IGM 0.28 index 09/24/2017 [place] Spotted Fever Igg/Igm 704179 [place] SPOTTED FEVER IGG EIA FLEX . 09/24/2017 [place] Spotted Fever Igg/Igm 484472 RMSF, IGG SCREEN-FLEX Negative 09/24/2017 Ehrlichia Chaffeensis Antibody Igm 440091 EHRLICHIA CHAFFEENSIS IGM < 1:16 09/22/2017 Ehrlichia Chaffeensis Antibody Igg 872977 EHRLICHIA CHAFFEENSIS IGG <1:64 09/22/2017 Sabiha [id number] SABIHA (BLAIR) SCREEN NONE DETECTED 09/21/2017 Ra Factor Cay200 RA FACTOR <10 IU/ml 09/20/2017 Free T4 Fjs773 FREE T4 0.65 ng/dL 09/20/2017 Sed Rate [...] Code : 8480-6 BMI: 44.7 Code : 02921-3 Heart Rate 1 : 80 bpm Height: 5'6" SpO2: 94% Weight: 277 lbs 05/08/2018 Blood Pressure 1: 132/84 Code : 8480-6 BMI: 44.7 Code : 49277-1 Heart Rate 1 : 87 bpm Height: 5'6" SpO2: 98% Weight: 277 lbs 02/28/2018 Blood Pressure 1: 130/72 Code : 8480-6 BMI: 43.9 Code : 54744-2 Heart Rate 1 : 65 bpm Height: 5'6" SpO2: 97% Weight: 272 lbs 01/23/2018 Blood Pressure 1: 122/60 Code : 8480-6 BMI: 43.9 Code : 96874-0 Heart Rate 1 : 87 bpm Height: 5'6" SpO2: 97% Weight: 272 lbs 10/25/2017 Blood Pressure 1: 124/76 Code : 8480-6 BMI: 42.9 Code : 60380-6 Heart Rate 1 : 94 bpm Height: 5'6" SpO2: 95% Weight: 266 lbs 09/20/2017 Blood Pressure 1: 144/76 Code : 8480-6 BMI: 43.3 Code : 88544-2 Heart Rate 1 : 91 bpm Height: 5'6" SpO2: 98% Weight: 268 lbs 09/05/2017 Blood Pressure 1: 140/78 Code : 8480-6 BMI: 44.7 Code : 56095-1 Heart Rate 1 : 81 bpm Height: [...] data Encounters Encounter Performer Location Codes Date 94159 EST. PATIENT, LEVEL III Diagnosis: Essential (primary) hypertension[ICD10: I10] Diagnosis: Generalized anxiety disorder[ICD10: F41.1] Diagnosis: Major depressive disorder, single episode, moderate[ICD10: F32.1] Diagnosis: Low back pain[ICD10: M54.5] Diagnosis: Impacted cerumen, left ear[ICD10: H61.22] Neva Chavarria MD, [facility] CPT-4: 88872 05/24/2018 71560 EST. PATIENT, LEVEL IV Diagnosis: Dysuria[ICD10: R30.0] Diagnosis: Generalized anxiety disorder[ICD10: F41.1] Diagnosis: Major depressive disorder, single episode, moderate[ICD10: F32.1] Diagnosis: Polycystic ovarian syndrome[ICD10: E28.2] Diagnosis: Low back pain[ICD10: M54.5] Neva Chavarria MD, [facility] CPT-4 : 55941 05/08/2018 43128 EST. PATIENT, LEVEL IV Diagnosis: Other specified hypothyroidism[ICD10: E03.8] Diagnosis: Generalized anxiety disorder[ICD10: F41.1] Diagnosis: Major depressive disorder, single episode, moderate[ICD10: F32.1] Diagnosis: Essential (primary) hypertension[ICD10: I10] Diagnosis: Other malaise[ICD10: R53.81] Diagnosis: Other fatigue[ICD10: R53.83] Neva Chavarria MD, [facility] CPT-4 : 53110 02/28/2018 65041 EST. PATIENT, LEVEL III Diagnosis: Other specified hypothyroidism[ICD10: E03.8] Diagnosis: Generalized anxiety disorder[ICD10: F41.1] Diagnosis: Major depressive disorder, single episode, moderate[ICD10: F32.1] Neva Chavarria MD, [facility] CPT-4: 61450 01/23/2018 73767 EST. PATIENT, LEVEL IV Diagnosis: Other acute sinusitis[ICD10: J01.80] Diagnosis: Other allergic rhinitis[ICD10: J30.89] Diagnosis: Essential (primary) hypertension[ICD10: I10] [facility] CPT-4: 29819 10/25/2017 35775 EST. PATIENT, LEVEL III Diagnosis: Other fatigue[ICD10: R53.83] Diagnosis: Other malaise[ICD10: R53.81] Diagnosis: Essential (primary) hypertension[ICD10: I10] Diagnosis: Generalized anxiety disorder[ICD10: F41.1] Diagnosis: Major depressive disorder, single episode, moderate[ICD10: F32.1] Neva Chavarria MD, [facility] CPT-4: 47886 09/20/2017 OFFICE VISIT, NEW - LEVEL 3 Diagnosis: Essential (primary) hypertension[ICD10: I10] Diagnosis: Generalized anxiety disorder[ICD10: F41.1] Diagnosis: Major depressive disorder, single episode, moderate[ICD10: F32.1] Neva Chavarria MD, [facility] CPT-4: 94302 09/05/2017 Plan of Care Planned Activity Notes Codes Status Date Referral: Cathy Manriquez WPtel: [address] [place], [place] [id number] Referral Initiated 06/14/2018 Patient Education: Patient Medication Summary Completed 06/06/2018 Care Plan: Cbc With Differential Pending 06/06/2018 Appointment: Neav Brito [facility]: [facility] [place] (15 min) Moderate 05/31/2018 Visit Plan: Hypertension [...] improve. 05/24/2018 Appointment: Neva Brito WPtel: [phone] [facility] (15 min) Moderate 05/24/2018 Patient Education: Patient Medication Summary Completed 05/24/2018 Patient Education: Depression Completed 05/24/2018 Patient Education: Back Pain Completed 05/24/2018 Referral: Cathy Manriquez WPtel: [phone] [place], [place] [id number] pt will be called by there office for appt Initiated 05/16/2018 Care Plan: Referral Order SNOMED-CT : [id number] Pending 05/09/2018 Visit Plan: PCOS - will [...] patient. 05/08/2018 App[facility]ment: [facility] [phone] [facility] (15 min) Moderate 05/08/2018 Patient Education: Patient [...] as indicated 02/28/2018 Appointment: [facility] [phone] [facility] (30 min) Complex 02/28/2018 Patient Education: Patient [...] on previous levels of control. 01/23/2018 Appointment: [facility]el[facility] [phone] [facility] (15 min) Moderate 01/23/2018 Patient Education: Patient [...] home. 10/25/2017 Appointment: Neva Brito WPtel: [phone] [facility] (15 min) Moderate 10/25/2017 Patient Education: Patient [...] concerns. 09/20/2017 Appointment: [facility] [phone] [facility] (15 min) Moderate 09/20/2017 Patient Education: Patient [...] medications. 09/05/2017 Appointment: D[facility]el[facility] [phone] [facility] New Patient 09/05/2017 Patient Education: Patient Medication Summary Completed 09/05/2017 Ref[facility]: [facility] [phone] [facility] Referral Initiated Instructions Comment Refer to [...]
--- OUTSIDE RECORDS SUMMARY | 2018-07-07 09:38 | XMS REPORT | CCD ---
Author Author [facility] Address [address] [place] [address] Phone Care Team Providers Care Set Up Inspector Name Role Phone PP Unavailable CCM Unavailable Summary Purpose Interface Exchange Insurance Providers Payer name Policy type / Coverage type Covered green party ID Effective Begin Date Effective End Date [facility] [id number] 2017 Unknown Family history Mother Diagnosis Age [...] Codes Condition Status Onset Date Resolved Date Dysuria ICD-9: 788.1 ICD-10: R30.0 Active 05/08/2018 [...] Problems Condition Codes Effective Dates Condition Status Dysuria ICD-9: 788.1 ICD-10: R30.0 05/08/2018 Active [...] Fill Instructions Viibryd 40 mg tablet RxNorm: 2169570 1 Tablet(s) PO daily 11/12 /2018 06/20/2018 Active Viibryd 40 mg tablet RxNorm: 2649262 1 Tablet(s) PO daily 05/2205/21/2018 Inactive tramadol 50 mg tablet RxNorm: 071761 1 Tablet(s) PO QID as needed for pain 05/11/2018 05/15/2018 Inactive Cipro 500 mg tablet RxNorm: 981400 1 Tablet(s) PO BID 201705/20/2018 Inactive Diflucan 150 mg tablet RxNorm: 379654 1 Tablet(s) PO daily 07/201705/17/2018 Inactive Cipro 500 mg tablet RxNorm: 395923 1 Tablet(s) PO BID 201705/10/2018 Inactive Xanax 0.5 mg tablet RxNorm: 499475 1 Tablet(s) PO BID as needed 05/08/2018 08/05/2018 Active naproxen 500 mg tablet RxNorm: 528511 1 Tablet(s) PO BID 201705/12/2018 Inactive baclofen 10 mg tablet RxNorm: 314448 1 Tablet(s) PO TID as needed muscle spasms 05/08/2018 05/12/2018 Inactive lisinopril 20 mg tablet RxNorm: 026260 1 TABLET(S) PO DAILY 02/201810/13/2018 Active Prozac 20 mg capsule RxNorm: 587659 2 CAPSULE(S) PO DAILY 04/1705/16/2018 Inactive Prozac 20 mg capsule RxNorm: 935412 3 Capsule(s) PO daily 03/0204/30/2018 Inactive fluoxetine 60 mg tablet RxNorm: 1582561 1 Tablet(s) PO daily 03/01/2018 Inactive Xanax 0.5 mg tablet RxNorm: 292753 1 Tablet(s) PO BID as needed 02/27/2018 05/07/2018 Inactive Prozac 20 mg capsule RxNorm: 533119 2 Capsule(s) PO daily 02/2003/01/2018 Inactive Prozac 20 mg capsule RxNorm: 921796 1 Capsule(s) PO daily x 1 week then 2 pills daily 01/23/2018 02/19/2018 Inactive Wellbutrin XL 150 mg 24 hr tablet, extended release RxNorm: 597648 1 Tablet(s) PO UD 01/23/2018 05/09/2018 Inactive Xanax 0.5 mg tablet RxNorm: 315937 1 Tablet(s) PO BID 201702/26/2018 Inactive metoprolol succinate ER 25 mg tablet,extended release 24 hr RxNorm: 194965 1 Tablet(s) PO daily 10/31/2017 11/29/2017 Inactive ceftriaxone 500 mg solution for injection RxNorm: 4255066 Inj 10/25/2017 10/25/2017 Inactive Keflex 500 mg capsule RxNorm: 198224 1 Capsule(s) PO TID 201710/31/2017 Inactive Diflucan 150 mg tablet RxNorm: 108130 1 Tablet(s) PO daily 10/31/2017 Inactive Kenalog 40 mg/mL suspension for injection RxNorm: 0523501 Milliliter(s) Inj 10/25/2017 10/25/2017 Inactive Xanax 0.5 mg tablet RxNorm: 808872 1 Tablet(s) PO BID 201712/18/2017 Inactive lisinopril 20 mg tablet RxNorm: 311113 1 TABLET(S) PO DAILY 06/201804/16/2018 Inactive Xanax 0.5 mg tablet RxNorm: 026725 1 Tablet(s) PO BID 201710/18/2017 Inactive lisinopril 20 mg tablet RxNorm: 874568 1 Tablet(s) PO daily 10/19/2017 Inactive Xanax 0.25 mg tablet RxNorm: 460829 1 Tablet(s) PO BID as needed 09/05/2017 09/13/2017 Inactive lisinopril 10 mg tablet RxNorm: 628910 1 Tablet(s) PO daily 09/13/2017 Inactive bupropion HCl XL 300 mg 24 hr tablet, extended release RxNorm: 326851 1 Tablet(s) PO daily 09/05/2017 02/15/2018 Inactive spironolactone 100 mg tablet RxNorm: 784127 1 Tablet(s) PO daily No Start Date Active magnesium oral RxNorm : 6574 oral No Start Date Active Vitamin D3 5,000 unit tablet RxNorm: 820660 1 Tablet(s) PO daily No Start Date Active allopurinol 300 mg tablet RxNorm: 872638 1 Tablet(s) PO daily No Start Date Active liothyronine 5 mcg tablet RxNorm: 430227 1 Tablet(s) PO QAM and 1 early afternoon No Start Date Active metformin 1,000 mg tablet RxNorm: 253442 1 Tablet(s) PO daily No Start Date Active Nature Thyroid 60 mg tablet RxNorm: 640182 1 Tablet(s) PO QAM and 1 early afternoon No Start Date Active Medication Administered Medication Codes Instructions Start Date Status ceftriaxone 500 mg solution for injection RxNorm: 2684092 10/25/2017 No longer Active Kenalog 40 mg/mL suspension for injection RxNorm: 0643882 Milliliter 10/25/2017 No longer Active Immunizations No Immunization data Assessments Condition Codes Effective Dates Low back pain ICD-10: M54.5 ICD-9: 724.2 [...] Item Item Code Result Date Comp Metabolic Juq249 NA 137 mEq/L 05/24/2018 Comp Metabolic Osp849 K 4.3 mEq/L 05/24/2018 Comp Metabolic Vtf496 CL 99 mEq/L 05/24/2018 Comp Metabolic Kii593 CO2 29.0 mEq/L 05/24/2018 Comp Metabolic Ggf340 ANION GAP 13 05/24/2018 Comp Metabolic Jww552 GLUCOSE 85 mg/dL 05/24/2018 Comp Metabolic Zbp311 Creat 0.7 mg/dL 05/24/2018 Comp Metabolic Eic448 eGFR 94 ml/min/1.73m2 05/24/2018 Comp Metabolic Uye407 BUN 18 mg/dL 05/24/2018 Comp Metabolic Txq669 B/C Ratio 25.0 Ratio 05/24/2018 Comp Metabolic Oii770 CALCIUM 9.8 mg/dL 05/24/2018 Comp Metabolic Oxp724 ALK PHOS 67 U/L 05/24/2018 Comp Metabolic Ryd309 AST(SGOT) 19 U/L 05/24/2018 Comp Metabolic Sss392 ALT(SGPT) 20 U/L 05/24/2018 Comp Metabolic Oqk663 BILI T 0.3 mg/dL 05/24/2018 Comp Metabolic Kux309 ALBUMIN 4.4 g/dL 05/24/2018 Comp Metabolic Zlr683 TPRO 7.4 g/dL 05/24/2018 Comp Metabolic Bly780 GLOB 3.0 g/dL 05/24/2018 Comp Metabolic Euv279 A/G Ratio 1.5 Ratio 05/24/2018 Comp Metabolic Jta953 Osmo 275 mOsmo 05/24/2018 Lipid Ord30 CHOL [...] 73.0 % 05/24/2018 Cbc With Differential Ord2 Lymph% 20.7 % 05/24/2018 Cbc With Differential Ord2 MCV 95.3 fl 05/24/2018 Cbc With Differential Ord2 [place]% 5.1 % 05/24/2018 Cbc With Differential Ord2 [...] 3.47 K/ul 05/24/2018 Cbc With Differential Ord2 [place] ABS# 0.9 K/ul 05/24/2018 Cbc With Differential Ord2 Eos ABS# 0.2 K/ul 05/24/2018 Cbc With Differential Ord2 Baso ABS# 0.0 K/ul 05/24/2018 Culture Urine [id number] URINE CULTURE SEE NOTES 05/11/2018 Culture Urine [id number] Continued Results 05/11/2018 Urine Culture Ucult Complete >100,000 col/ml aerobic growth sent to ref lab 05/09/2018 Total T3 Ord42 TT3 2.60 ng/ml 02/28/2018 Free T4 Hvw266 FREE T4 0.85 ng/dL 02/28/2018 Tsh Ord6 TSH (3rd IS) 1.89 uIU/mL 02/28/2018 %Hba1C Lum874 % HbA1c 42977-3 5.7 % 02/28/2018 %Hba1C Aue250 Gluc Ave 117 mg/dL 02/28/2018 [facility] Total Antibodies With Western Blot Reflex [id number] B. BURGDORFERI, IGG/IGM 0.139 09/26/2017 [facility] Total Antibodies With Western Blot Reflex [id number] 09/26/2017 [facility] Spotted Fever Igg/Igm 287257 [place] SPOTTED FEVER IGM EIA . 09/24/2017 [facility] Spotted Fever Igg/Igm 145034 RMSF, IGM 0.28 index 09/24/2017 [facility] Spotted Fever Igg/Igm 583311 [place] SPOTTED FEVER IGG EIA FLEX . 09/24/2017 [facility] Spotted Fever Igg/Igm 407650 RMSF, IGG SCREEN-FLEX Negative 09/24/2017 Ehrlichia Chaffeensis Antibody Igm 343346 EHRLICHIA CHAFFEENSIS IGM < 1:16 09/22/2017 Ehrlichia Chaffeensis Antibody Igg 543354 EHRLICHIA CHAFFEENSIS IGG <1:64 09/22/2017 [facility] 214062 SABIHA (BLAIR) SCREEN NONE DETECTED 09/21/2017 Ra Factor Tvy171 RA FACTOR <10 IU/ml 09/20/2017 Free T4 Ggo171 FREE T4 0.65 ng/dL 09/20/2017 Sed Rate [...] accomodation 09/05/2017 None Full Exam - General 1995 Ears/Nose/Throat otoscopic exam Overall: external auditory canals clear 09/05/2017 None Full Exam - General 1995 Ears/Nose/Throat otoscopic exam Overall: tympanic membranes clear [...] Code : 8480-6 BMI: 44.7 Code : 08763-4 Heart Rate 1 : 80 bpm Height: 5'6" SpO2: 94% Weight: 277 lbs 05/08/2018 Blood Pressure 1: 132/84 Code : 8480-6 BMI: 44.7 Code : 68467-8 Heart Rate 1 : 87 bpm Height: 5'6" SpO2: 98% Weight: 277 lbs 02/28/2018 Blood Pressure 1: 130/72 Code : 8480-6 BMI: 43.9 Code : 16704-0 Heart Rate 1 : 65 bpm Height: 5'6" SpO2: 97% Weight: 272 lbs 01/23/2018 Blood Pressure 1: 122/60 Code : 8480-6 BMI: 43.9 Code : 24332-9 Heart Rate 1 : 87 bpm Height: 5'6" SpO2: 97% Weight: 272 lbs 10/25/2017 Blood Pressure 1: 124/76 Code : 8480-6 BMI: 42.9 Code : 80796-4 Heart Rate 1 : 94 bpm Height: 5'6" SpO2: 95% Weight: 266 lbs 09/20/2017 Blood Pressure 1: 144/76 Code : 8480-6 BMI: 43.3 Code : 21290-4 Heart Rate 1 : 91 bpm Height: 5'6" SpO2: 98% Weight: 268 lbs 09/05/2017 Blood Pressure 1: 140/78 Code : 8480-6 BMI: 44.7 Code : 62465-8 Heart Rate 1 : 81 bpm Height: [...] data Encounters Encounter Performer Location Codes Date EST. PATIENT, LEVEL III Diagnosis: Essential (primary) hypertension[ICD10: I10] Diagnosis: Generalized anxiety disorder[ICD10: F41.1] Diagnosis: Major depressive disorder, single episode, moderate[ICD10: F32.1] Diagnosis: Low back pain[ICD10: M54.5] Diagnosis: Impacted cerumen, left ear[ICD10: H61.22] Neva Chavarria MD, [facility] CPT-4: 16426 05/24/2018 86906 EST. PATIENT, LEVEL IV Diagnosis: Dysuria[ICD10: R30.0] Diagnosis: Generalized anxiety disorder[ICD10: F41.1] Diagnosis: Major depressive disorder, single episode, moderate[ICD10: F32.1] Diagnosis: Polycystic ovarian syndrome[ICD10: E28.2] Diagnosis: Low back pain[ICD10: M54.5] Neva Chavarria MD, [facility] CPT-4 : 31095 05/08/2018 32303 EST. PATIENT, LEVEL IV Diagnosis: Other specified hypothyroidism[ICD10: E03.8] Diagnosis: Generalized anxiety disorder[ICD10: F41.1] Diagnosis: Major depressive disorder, single episode, moderate[ICD10: F32.1] Diagnosis: Essential (primary) hypertension[ICD10: I10] Diagnosis: Other malaise[ICD10: R53.81] Diagnosis: Other fatigue[ICD10: R53.83] Neva Chavarria MD, [facility] CPT-4 : 73678 02/28/2018 55008 EST. PATIENT, LEVEL III Diagnosis: Other specified hypothyroidism[ICD10: E03.8] Diagnosis: Generalized anxiety disorder[ICD10: F41.1] Diagnosis: Major depressive disorder, single episode, moderate[ICD10: F32.1] Neva Chavarria MD, [facility] CPT-4: 23581 01/23/2018 75425 EST. PATIENT, LEVEL IV Diagnosis: Other acute sinusitis[ICD10: J01.80] Diagnosis: Other allergic rhinitis[ICD10: J30.89] Diagnosis: Essential (primary) hypertension[ICD10: I10] [facility] CPT-4: 98559 10/25/2017 74211 EST. PATIENT, LEVEL III Diagnosis: Other fatigue[ICD10: R53.83] Diagnosis: Other malaise[ICD10: R53.81] Diagnosis: Essential (primary) hypertension[ICD10: I10] Diagnosis: Generalized anxiety disorder[ICD10: F41.1] Diagnosis: Major depressive disorder, single episode, moderate[ICD10: F32.1] [facility] CPT-4: 80044 09/20/2017 OFFICE VISIT, NEW - LEVEL 3 Diagnosis: Essential (primary) hypertension[ICD10: I10] Diagnosis: Generalized anxiety disorder[ICD10: F41.1] Diagnosis: Major depressive disorder, single episode, moderate[ICD10: F32.1] [facility] CPT-4: 55476 09/05/2017 Plan of Care Planned Activity Notes Codes Status Date Referral: [phone] [facility] Referral Initiated 06/14/2018 Visit Plan: Hypertension - well controlled - [...] improve. 05/24/2018 Appointment: Neva Brito WPtel: [phone] [facility] (15 min) Moderate 05/24/2018 Patient Education: Patient Medication Summary Completed 05/24/2018 Patient Education: Depression Completed 05/24/2018 Patient Education: Back Pain Completed 05/24/2018 Referral: Cathy Manriquez WPtel: [phone] [place], [place] [phone] pt will be called by there office for appt Initiated 05/16/2018 Care Plan: Referral Order SNOMED-CT : [id number] Pending 05/09/2018 Visit Plan: PCOS - will [...] this patient. 05/08/2018 Appointment: Neva Brito [facility]Ptel[facility] [place] ([facility] min) Moderate 05/08/2018 Patient Education: [...] indicated 02/28/2018 Appointment: Neva Brito WPtel: [phone] [facility] (30 min) Complex 02/28/2018 Patient Education: Patient [...] of control. 01/23/2018 Appointment: [facility] [phone] [facility] ([facility] min) Moderate 01/23/2018 Patient Education: [...] at home. 10/25/2017 Appointment: Neva Brito WPtel: [address] [place], [place] [address] (15 min) Moderate 10/25/2017 Patient Education: Patient [...] or concerns. 09/20/2017 Appointment: Neva Brito WPtel: [phone] [email or web address] (15 min) Moderate 09/20/2017 Patient Education: Patient [...] above medications. 09/05/2017 Appointment: Neva Brito WPtel: [facility] [place] New Patient 09/05/2017 Patient Education: Patient Medication Summary Completed 09/05/2017 Referral: Cathy Manriquez WPtel: [address] [place], [place] [phone] Referral Initiated Instructions Comment Refer to OB [...]
--- OUTSIDE RECORDS SUMMARY | 2018-07-07 09:39 | XMS REPORT | CCD ---
Author Author [facility] Address [address] [place] [address] Phone Care Team Providers Care Windows Systems Engineer Name Role Phone PP Unavailable CCM Unavailable Summary Purpose Interface Exchange Insurance Providers Payer name Policy type / Coverage type Covered constitution party ID Effective Begin Date Effective End Date [facility] [id number] 2017 Unknown Family history Mother Diagnosis Age [...] Fill Instructions Viibryd 40 mg tablet RxNorm: 7732068 1 Tablet(s) PO daily 11/12 /2018 06/20/2018 Active Viibryd 40 mg tablet RxNorm: 1626379 1 Tablet(s) PO daily 05/2205/21/2018 Inactive tramadol 50 mg tablet RxNorm: 617017 1 Tablet(s) PO QID as needed for pain 05/11/2018 05/15/2018 Inactive Cipro 500 mg tablet RxNorm: 243077 1 Tablet(s) PO BID 201705/20/2018 Inactive Diflucan 150 mg tablet RxNorm: 353572 1 Tablet(s) PO daily 07/201705/17/2018 Inactive Cipro 500 mg tablet RxNorm: 252625 1 Tablet(s) PO BID 201705/10/2018 Inactive Xanax 0.5 mg tablet RxNorm: 066460 1 Tablet(s) PO BID as needed 05/08/2018 08/05/2018 Active naproxen 500 mg tablet RxNorm: 900749 1 Tablet(s) PO BID 201705/12/2018 Inactive baclofen 10 mg tablet RxNorm: 313978 1 Tablet(s) PO TID as needed muscle spasms 05/08/2018 05/12/2018 Inactive lisinopril 20 mg tablet RxNorm: 587635 1 TABLET(S) PO DAILY 02/201810/13/2018 Active Prozac 20 mg capsule RxNorm: 225780 2 CAPSULE(S) PO DAILY 04/1705/16/2018 Inactive Prozac 20 mg capsule RxNorm: 482348 3 Capsule(s) PO daily 03/0204/30/2018 Inactive fluoxetine 60 mg tablet RxNorm: 2313795 1 Tablet(s) PO daily 03/01/2018 Inactive Xanax 0.5 mg tablet RxNorm: 823409 1 Tablet(s) PO BID as needed 02/27/2018 05/07/2018 Inactive Prozac 20 mg capsule RxNorm: 007745 2 Capsule(s) PO daily 02/2003/01/2018 Inactive Prozac 20 mg capsule RxNorm: 069827 1 Capsule(s) PO daily x 1 week then 2 pills daily 01/23/2018 02/19/2018 Inactive Wellbutrin XL 150 mg 24 hr tablet, extended release RxNorm: 689102 1 Tablet(s) PO UD 01/23/2018 05/09/2018 Inactive Xanax 0.5 mg tablet RxNorm: 979918 1 Tablet(s) PO BID 201702/26/2018 Inactive metoprolol succinate ER 25 mg tablet,extended release 24 hr RxNorm: 067636 1 Tablet(s) PO daily 10/31/2017 11/29/2017 Inactive ceftriaxone 500 mg solution for injection RxNorm: 9398104 Inj 10/25/2017 10/25/2017 Inactive Keflex 500 mg capsule RxNorm: 232649 1 Capsule(s) PO TID 201710/31/2017 Inactive Diflucan 150 mg tablet RxNorm: 795437 1 Tablet(s) PO daily 10/31/2017 Inactive Kenalog 40 mg/mL suspension for injection RxNorm: 3424234 Milliliter(s) Inj 10/25/2017 10/25/2017 Inactive Xanax 0.5 mg tablet RxNorm: 540349 1 Tablet(s) PO BID 201712/18/2017 Inactive lisinopril 20 mg tablet RxNorm: 659320 1 TABLET(S) PO DAILY 06/201804/16/2018 Inactive Xanax 0.5 mg tablet RxNorm: 183409 1 Tablet(s) PO BID 201710/18/2017 Inactive lisinopril 20 mg tablet RxNorm: 613590 1 Tablet(s) PO daily 10/19/2017 Inactive Xanax 0.25 mg tablet RxNorm: 628372 1 Tablet(s) PO BID as needed 09/05/2017 09/13/2017 Inactive lisinopril 10 mg tablet RxNorm: 792547 1 Tablet(s) PO daily 09/13/2017 Inactive bupropion HCl XL 300 mg 24 hr tablet, extended release RxNorm: 380125 1 Tablet(s) PO daily 09/05/2017 02/15/2018 Inactive spironolactone 100 mg tablet RxNorm: 243306 1 Tablet(s) PO daily No Start Date Active magnesium oral RxNorm : 6574 oral No Start Date Active Vitamin D3 5,000 unit tablet RxNorm: 500749 1 Tablet(s) PO daily No Start Date Active allopurinol 300 mg tablet RxNorm: 691229 1 Tablet(s) PO daily No Start Date Active liothyronine 5 mcg tablet RxNorm: 462687 1 Tablet(s) PO QAM and 1 early afternoon No Start Date Active metformin 1,000 mg tablet RxNorm: 607395 1 Tablet(s) PO daily No Start Date Active Nature Thyroid 60 mg tablet RxNorm: 740482 1 Tablet(s) PO QAM and 1 early afternoon No Start Date Active Medication Administered Medication Codes Instructions Start Date Status ceftriaxone 500 mg solution for injection RxNorm: 3951030 10/25/2017 No longer Active Kenalog 40 mg/mL suspension for injection RxNorm: 7932613 Milliliter 10/25/2017 No longer Active Immunizations No [...] Item Item Code Result Date Comp Metabolic Tfb587 NA 137 mEq/L 05/24/2018 Comp Metabolic Xxq644 K 4.3 mEq/L 05/24/2018 Comp Metabolic Lkv963 CL 99 mEq/L 05/24/2018 Comp Metabolic Cfd745 CO2 29.0 mEq/L 05/24/2018 Comp Metabolic Hkp426 ANION GAP 13 05/24/2018 Comp Metabolic Mnt189 GLUCOSE 85 mg/dL 05/24/2018 Comp Metabolic Gqg655 Creat 0.7 mg/dL 05/24/2018 Comp Metabolic Yng737 eGFR 94 ml/min/1.73m2 05/24/2018 Comp Metabolic Vzo336 BUN 18 mg/dL 05/24/2018 Comp Metabolic Eon622 B/C Ratio 25.0 Ratio 05/24/2018 Comp Metabolic Brw219 CALCIUM 9.8 mg/dL 05/24/2018 Comp Metabolic Gtt901 ALK PHOS 67 U/L 05/24/2018 Comp Metabolic Llr503 AST(SGOT) 19 U/L 05/24/2018 Comp Metabolic Yvl248 ALT(SGPT) 20 U/L 05/24/2018 Comp Metabolic Hfs820 BILI T 0.3 mg/dL 05/24/2018 Comp Metabolic Jzj096 ALBUMIN 4.4 g/dL 05/24/2018 Comp Metabolic Bdd420 TPRO 7.4 g/dL 05/24/2018 Comp Metabolic Xac620 GLOB 3.0 g/dL 05/24/2018 Comp Metabolic Fva718 A/G Ratio 1.5 Ratio 05/24/2018 Comp Metabolic Cho574 Osmo 275 mOsmo 05/24/2018 Lipid Ord30 CHOL [...] 20.7 % 05/24/2018 Cbc With Differential Ord2 [place]% 5.1 % 05/24/2018 Cbc With Differential Ord2 MCH 31.7 pg 05/24/2018 Cbc With Differential Ord2 MCHC 33.3 pg 05/24/2018 Cbc With Differential Ord2 Eos% 1.1 % 05/24/2018 Cbc With Differential Ord2 Baso% 0.1 % 05/24/2018 Cbc With Differential Ord2 PLT 383 K/ul 05/24/2018 Cbc With Differential Ord2 RDW 14.0 % 05/24/2018 Cbc With Differential Ord2 Neut ABS# 12.24 K/ul 05/24/2018 Cbc With Differential Ord2 Lymph ABS# 3.47 K/ul 05/24/2018 Cbc With Differential Ord2 [place] ABS# 0.9 K/ul 05/24/2018 Cbc With Differential Ord2 Eos ABS# 0.2 K/ul 05/24/2018 Cbc With Differential Ord2 Baso ABS# 0.0 K/ul 05/24/2018 Culture Urine [id number] URINE CULTURE SEE NOTES 05/11/2018 Culture Urine [id number] Continued Results 05/11/2018 Urine Culture Ucult Complete >100,000 col/ml aerobic growth sent to ref lab 05/09/2018 Total T3 Ord42 TT3 2.60 ng/ml 02/28/2018 Free T4 Mqh171 FREE T4 0.85 ng/dL 02/28/2018 Tsh Ord6 TSH (3rd IS) 1.89 uIU/mL 02/28/2018 %Hba1C Wpd340 % HbA1c 64869-6 5.7 % 02/28/2018 %Hba1C Mvq662 Gluc Ave 117 mg/dL 02/28/2018 Lymes Disease Total Antibodies With Western Blot Reflex [id number] B. BURGDORFERI, IGG/IGM 0.139 09/26/2017 Lymes Disease Total Antibodies With Western Blot Reflex [id number] 09/26/2017 Rule Spotted Fever Igg/Igm 160404 [place] SPOTTED FEVER IGM EIA . 09/24/2017 Rule Spotted Fever Igg/Igm 356973 RMSF, IGM 0.28 index 09/24/2017 Rule Spotted Fever Igg/Igm 284477 [place] SPOTTED FEVER IGG EIA FLEX . 09/24/2017 Rule Spotted Fever Igg/Igm 220423 RMSF, IGG SCREEN-FLEX Negative 09/24/2017 Ehrlichia Chaffeensis Antibody Igm 935797 EHRLICHIA CHAFFEENSIS IGM < 1:16 09/22/2017 Ehrlichia Chaffeensis Antibody Igg 475894 EHRLICHIA CHAFFEENSIS IGG <1:64 09/22/2017 Sabiha [id number] SABIHA (BLAIR) SCREEN NONE DETECTED 09/21/2017 Ra Factor Rwg223 RA FACTOR <10 IU/ml 09/20/2017 Free T4 Yys615 FREE T4 0.65 ng/dL 09/20/2017 Sed Rate [...] Code : 8480-6 BMI: 44.7 Code : 37333-4 Heart Rate 1 : 80 bpm Height: 5'6" SpO2: 94% Weight: 277 lbs 05/08/2018 Blood Pressure 1: 132/84 Code : 8480-6 BMI: 44.7 Code : 14377-7 Heart Rate 1 : 87 bpm Height: 5'6" SpO2: 98% Weight: 277 lbs 02/28/2018 Blood Pressure 1: 130/72 Code : 8480-6 BMI: 43.9 Code : 40952-4 Heart Rate 1 : 65 bpm Height: 5'6" SpO2: 97% Weight: 272 lbs 01/23/2018 Blood Pressure 1: 122/60 Code : 8480-6 BMI: 43.9 Code : 83102-5 Heart Rate 1 : 87 bpm Height: 5'6" SpO2: 97% Weight: 272 lbs 10/25/2017 Blood Pressure 1: 124/76 Code : 8480-6 BMI: 42.9 Code : 07506-8 Heart Rate 1 : 94 bpm Height: 5'6" SpO2: 95% Weight: 266 lbs 09/20/2017 Blood Pressure 1: 144/76 Code : 8480-6 BMI: 43.3 Code : 60248-0 Heart Rate 1 : 91 bpm Height: 5'6" SpO2: 98% Weight: 268 lbs 09/05/2017 Blood Pressure 1: 140/78 Code : 8480-6 BMI: 44.7 Code : 09727-2 Heart Rate 1 : 81 bpm Height: [...] cerumen, left ear[ICD10: H61.22] Neva Chavarria MD, [facility] CPT-4: 33148 05/24/2018 16259 EST. PATIENT, LEVEL IV Diagnosis: Dysuria[ICD10: R30.0] Diagnosis: Generalized anxiety disorder[ICD10: F41.1] Diagnosis: Major depressive disorder, single episode, moderate[ICD10: F32.1] Diagnosis: Polycystic ovarian syndrome[ICD10: E28.2] Diagnosis: Low back pain[ICD10: M54.5] Neva Chavarria MD, [facility] CPT-4 : 32365 05/08/2018 29893 EST. PATIENT, LEVEL IV Diagnosis: Other specified hypothyroidism[ICD10: E03.8] Diagnosis: Generalized anxiety disorder[ICD10: F41.1] Diagnosis: Major depressive disorder, single episode, moderate[ICD10: F32.1] Diagnosis: Essential (primary) hypertension[ICD10: I10] Diagnosis: Other malaise[ICD10: R53.81] Diagnosis: Other fatigue[ICD10: R53.83] Neva Chavarria MD, [facility] CPT-4 : 29802 02/28/2018 99415 EST. PATIENT, LEVEL III Diagnosis: Other specified hypothyroidism[ICD10: E03.8] Diagnosis: Generalized anxiety disorder[ICD10: F41.1] Diagnosis: Major depressive disorder, single episode, moderate[ICD10: F32.1] Neva Chavarria MD, [facility] CPT-4: 62681 01/23/2018 42140 EST. PATIENT, LEVEL IV Diagnosis: Other acute sinusitis[ICD10: J01.80] Diagnosis: Other allergic rhinitis[ICD10: J30.89] Diagnosis: Essential (primary) hypertension[ICD10: I10] [facility] CPT-4: 18766 10/25/2017 38238 EST. PATIENT, LEVEL III Diagnosis: Other fatigue[ICD10: R53.83] Diagnosis: Other malaise[ICD10: R53.81] Diagnosis: Essential (primary) hypertension[ICD10: I10] Diagnosis: Generalized anxiety disorder[ICD10: F41.1] Diagnosis: Major depressive disorder, single episode, moderate[ICD10: F32.1] [facility] CPT-4: 79953 09/20/2017 OFFICE VISIT, NEW - LEVEL 3 Diagnosis: Essential (primary) hypertension[ICD10: I10] Diagnosis: Generalized anxiety disorder[ICD10: F41.1] Diagnosis: Major depressive disorder, single episode, moderate[ICD10: F32.1] [facility] CPT-4: 43391 09/05/2017 Plan of Care Planned Activity Notes Codes Status Date Referral: [id number] Ref[facility] Initiated 06/14/2018 Visit Plan: Hypertension - [...] improve. 05/24/2018 Appointment: Neva Brito WPtel: [phone] [facility] (15 min) Moderate 05/24/2018 Patient Education: Patient Medication Summary Completed 05/24/2018 Patient Education: Depression Completed 05/24/2018 Patient Education: Back Pain Completed 05/24/2018 Referral: Cathy Manriquez WPtel: [phone] [place], [place] [phone] pt will be called by there office for appt Initiated 05/16/2018 Care Plan: Referral Order SNOMED-CT : [id number] Pending 05/09/2018 Visit Plan: PCOS - will [...] this patient. 05/08/2018 Appointment: Neva Brito WPtel: [facility] ([facility] min) Moderate 05/08/2018 Patient Education: [...] indicated 02/28/2018 Appointment: Neva Brito WPtel: [phone] [facility] (30 min) Complex 02/28/2018 Patient Education: Patient [...] of control. 01/23/2018 Appointment: [phone] (15 min) Moderate 01/23/2018 Patient Education: [...] at home. 10/25/2017 Appointment: Neva Brito WPtel: [address] [place], [place] [address] (15 min) Moderate 10/25/2017 Patient Education: Patient [...] or concerns. 09/20/2017 Appointment: Neva Brito WPtel: [phone] [facility] (15 min) Moderate 09/20/2017 Patient [...] above medications. 09/05/2017 Appointment: Neva Brito WPtel: [facility] New Patient 09/05/2017 Patient Education: Patient Medication Summary Completed 09/05/2017 Referral: Cathy Manriquez WPtel: [address] [place], [place] [phone] Referral Initiated Instructions Comment Refer to OB [...]
[2018-07-07] MEDS ORDERED: LACTATED RINGERS 1,000 ML IV PRN (09:40)
--- OUTSIDE RECORDS SUMMARY | 2018-07-07 09:40 | XMS REPORT | CCD ---
Author Author [facility] Address [address] [place] [address] Phone Care Team Providers Care Inspector Glass Or Mirror Name Role Phone PP Unavailable CCM Unavailable Summary Purpose Interface Exchange Insurance Providers Payer name Policy type / Coverage type Covered democrat ID Effective Begin Date Effective End Date [facility] [id number] 2017 Unknown Family history Mother Diagnosis Age [...] ICD-9: 300.00 ICD-10: F41.1 Active 09/05/2017 Unknown Low back pain ICD-9: 724.2 ICD-10: M54.5 Active 05/08/2018 Unknown Major depressive disorder, single episode, moderate ICD-9: 296.22 ICD-10: F32.1 Active 09/05/2017 Unknown Other fatigue ICD-9: 780.79 ICD-10: R53.83 Active 09/20/2017 Unknown Other malaise ICD-9: 780.79 ICD-10: R53.81 Active 09/20/2017 Unknown Other specified hypothyroidism ICD-9: 244.8 ICD-10: E03.8 Active 02/28/2018 Unknown Polycystic ovarian syndrome ICD-9: 256.4 ICD-10: E28.2 Active 05/08/2018 Unknown Hypothryroidism Unknown Active 01/23/2018 Unknown Hypothyroidism, [...] disorder ICD-9: 300.00 ICD-10: F41.1 09/05/2017 Active Low back pain ICD-9: 724.2 ICD-10: M54.5 05/08/2018 Active Major depressive disorder, single episode, moderate ICD-9: 296.22 ICD-10: F32.1 09/05/2017 Active Other fatigue ICD-9: 780.79 ICD-10: R53.83 09/20/2017 Active Other malaise ICD-9: 780.79 ICD-10: R53.81 09/20/2017 Active Other specified hypothyroidism ICD-9: 244.8 ICD-10: E03.8 02/28/2018 Active Polycystic ovarian syndrome ICD-9: 256.4 ICD-10: E28.2 05/08/2018 Active Hypothryroidism Unknown 01/23/2018 Active Hypothyroidism, unspecified ICD-9: 244.9 ICD-10: E03.9 01/23/2018 Active Other acute sinusitis ICD-9: 461.8 ICD-10: J01.80 10/25/2017 Active Other allergic rhinitis ICD-9: 477.8 ICD-10: J30.89 10/25/2017 Active Medications Medication Codes Instructions Start Date Stop Date Status Fill Instructions Viibryd 40 mg tablet RxNorm: 0332695 1 Tablet(s) PO daily 05/2206/20/2018 Active Viibryd 40 mg tablet RxNorm: 5237360 1 Tablet(s) PO daily 05/2205/21/2018 Inactive tramadol 50 mg tablet RxNorm: 048440 1 Tablet(s) PO QID as needed for pain 05/11/2018 05/15/2018 Inactive Cipro 500 mg tablet RxNorm: 883706 1 Tablet(s) PO BID 201705/20/2018 Inactive Diflucan 150 mg tablet RxNorm: 764511 1 Tablet(s) PO daily 07/201705/17/2018 Inactive Cipro 500 mg tablet RxNorm: 505294 1 Tablet(s) PO BID 201705/10/2018 Inactive Xanax 0.5 mg tablet RxNorm: 166266 1 Tablet(s) PO BID as needed 05/08/2018 08/05/2018 Active naproxen 500 mg tablet RxNorm: 828229 1 Tablet(s) PO BID 201705/12/2018 Inactive baclofen 10 mg tablet RxNorm: 741574 1 Tablet(s) PO TID as needed muscle spasms 05/08/2018 05/12/2018 Inactive lisinopril 20 mg tablet RxNorm: 557660 1 TABLET(S) PO DAILY 02/201810/13/2018 Active Prozac 20 mg capsule RxNorm: 215899 2 CAPSULE(S) PO DAILY 04/1705/16/2018 Inactive Prozac 20 mg capsule RxNorm: 178986 3 Capsule(s) PO daily 03/0204/30/2018 Inactive fluoxetine 60 mg tablet RxNorm: 1461114 1 Tablet(s) PO daily 03/01/2018 Inactive Xanax 0.5 mg tablet RxNorm: 768009 1 Tablet(s) PO BID as needed 02/27/2018 05/07/2018 Inactive Prozac 20 mg capsule RxNorm: 872280 2 Capsule(s) PO daily 02/2003/01/2018 Inactive Prozac 20 mg capsule RxNorm: 419773 1 Capsule(s) PO daily x 1 week then 2 pills daily 01/23/2018 02/19/2018 Inactive Wellbutrin XL 150 mg 24 hr tablet, extended release RxNorm: 133740 1 Tablet(s) PO UD 01/23/2018 05/09/2018 Inactive Xanax 0.5 mg tablet RxNorm: 684714 1 Tablet(s) PO BID 201702/26/2018 Inactive metoprolol succinate ER 25 mg tablet,extended release 24 hr RxNorm: 814926 1 Tablet(s) PO daily 10/31/2017 11/29/2017 Inactive ceftriaxone 500 mg solution for injection RxNorm: 4832510 Inj 10/25/2017 10/25/2017 Inactive Keflex 500 mg capsule RxNorm: 397399 1 Capsule(s) PO TID 201710/31/2017 Inactive Diflucan 150 mg tablet RxNorm: 915625 1 Tablet(s) PO daily 10/31/2017 Inactive Kenalog 40 mg/mL suspension for injection RxNorm: 2390288 Milliliter(s) Inj 10/25/2017 10/25/2017 Inactive Xanax 0.5 mg tablet RxNorm: 521269 1 Tablet(s) PO BID 201712/18/2017 Inactive lisinopril 20 mg tablet RxNorm: 889733 1 TABLET(S) PO DAILY 06/201804/16/2018 Inactive Xanax 0.5 mg tablet RxNorm: 268352 1 Tablet(s) PO BID 201710/18/2017 Inactive lisinopril 20 mg tablet RxNorm: 979408 1 Tablet(s) PO daily 10/19/2017 Inactive Xanax 0.25 mg tablet RxNorm: 431203 1 Tablet(s) PO BID as needed 09/05/2017 09/13/2017 Inactive lisinopril 10 mg tablet RxNorm: 890005 1 Tablet(s) PO daily 09/13/2017 Inactive bupropion HCl XL 300 mg 24 hr tablet, extended release RxNorm: 080555 1 Tablet(s) PO daily 09/05/2017 02/15/2018 Inactive spironolactone 100 mg tablet RxNorm: 653627 1 Tablet(s) PO daily No Start Date Active magnesium oral RxNorm : 6574 oral No Start Date Active Vitamin D3 5,000 unit tablet RxNorm: 446854 1 Tablet(s) PO daily No Start Date Active allopurinol 300 mg tablet RxNorm: 851305 1 Tablet(s) PO daily No Start Date Active liothyronine 5 mcg tablet RxNorm: 017011 1 Tablet(s) PO QAM and 1 early afternoon No Start Date Active metformin 1,000 mg tablet RxNorm: 691230 1 Tablet(s) PO daily No Start Date Active Nature Thyroid 60 mg tablet RxNorm: 433138 1 Tablet(s) PO QAM and 1 early afternoon No Start Date Active Medication Administered Medication Codes Instructions Start Date Status ceftriaxone 500 mg solution for injection RxNorm: 2015923 10/25/2017 No longer Active Kenalog 40 mg/mL suspension for injection RxNorm: 6114701 Milliliter 10/25/2017 No longer Active Immunizations No Immunization data Assessments Condition Codes Effective Dates Dysuria ICD-10: R30.0 ICD-9: 788.1 05/08/2018 Major depressive disorder, single episode, moderate ICD-10: F32.1 ICD-9: 296.22 05/08/2018 Low back pain ICD-10: M54.5 ICD-9: 724.2 05/08/2018 Generalized anxiety disorder ICD-10: F41.1 ICD-9: 300.00 05/08/2018 Polycystic ovarian syndrome ICD-10: E28.2 ICD-9: 256.4 05/08/2018 Other fatigue ICD-10: R53.83 ICD-9: 780.79 02/28/2018 Essential (primary) hypertension ICD-10: I10 ICD-9: 401.1 02/28/2018 Other malaise ICD-10: R53.81 ICD-9: 780.79 02/28/2018 Other specified hypothyroidism ICD-10: E03.8 ICD-9: 244.8 02/28/2018 Other acute sinusitis ICD-10: J01.80 ICD-9: 461.8 10/25/2017 Other allergic rhinitis ICD-10: J30.89 ICD-9: 477.8 10/25/2017 Reason For Visit Reason For Visit Effective Dates Notes back pain 05/08/2018 prozac medication follow up 02/28/2018 medication follow up 01/23/2018 sinus congestion 10/25/2017 hypertension 09/20/2017 anxiety 09/05/2017 Results Observation Observation Code Item Item Code Result Date Culture Urine [id number] URINE CULTURE SEE NOTES 05/11/2018 Culture Urine [id number] Continued Results 05/11/2018 Urine Culture Ucult Complete >100,000 col/ml aerobic growth sent to ref lab 05/09/2018 Total T3 Ord42 TT3 2.60 ng/ml 02/28/2018 Free T4 Epl059 FREE T4 0.85 ng/dL 02/28/2018 Tsh Ord6 TSH (3rd IS) 1.89 uIU/mL 02/28/2018 %Hba1C Ifh822 % HbA1c 03986-0 5.7 % 02/28/2018 %Hba1C Kcd929 Gluc Ave 117 mg/dL 02/28/2018 Lymes Disease Total Antibodies With Western Blot Reflex [id number] B. BURGDORFERI, IGG/IGM 0.139 09/26/2017 [place]ym[facility] Disease Total Antibodies With Western Blot Reflex [id number] 09/26/2017 [place] Spotted Fever Igg/Igm 383725 [place] SPOTTED FEVER IGM EIA . 09/24/2017 [place] Spotted Fever Igg/Igm 424886 RMSF, IGM 0.28 index 09/24/2017 [place] Spotted Fever Igg/Igm 389125 [place] SPOTTED FEVER IGG EIA FLEX . 09/24/2017 [place] Spotted Fever Igg/Igm 482101 RMSF, IGG SCREEN-FLEX Negative 09/24/2017 Ehrlichia Chaffeensis Antibody Igm 584083 EHRLICHIA CHAFFEENSIS IGM < 1:16 09/22/2017 Ehrlichia Chaffeensis Antibody Igg 823448 EHRLICHIA CHAFFEENSIS IGG <1:64 09/22/2017 Sabiha 630791 SABIHA (BLAIR) SCREEN NONE DETECTED 09/21/2017 Ra Factor Ddc058 RA FACTOR <10 IU/ml 09/20/2017 Free T4 Hzj671 FREE T4 0.65 ng/dL 09/20/2017 Sed Rate [...] CPT-4: J0696 10/25/2017 Vital Signs Date Vital 05/08/2018 Blood Pressure 1: 132/84 Code : 8480-6 BMI: 44.7 Code : 60020-1 Heart Rate 1 : 87 bpm Height: 5'6" SpO2: 98% Weight: 277 lbs 02/28/2018 Blood Pressure 1: 130/72 Code : 8480-6 BMI: 43.9 Code : 72935-8 Heart Rate 1 : 65 bpm Height: 5'6" SpO2: 97% Weight: 272 lbs 01/23/2018 Blood Pressure 1: 122/60 Code : 8480-6 BMI: 43.9 Code : 14259-4 Heart Rate 1 : 87 bpm Height: 5'6" SpO2: 97% Weight: 272 lbs 10/25/2017 Blood Pressure 1: 124/76 Code : 8480-6 BMI: 42.9 Code : 14900-3 Heart Rate 1 : 94 bpm Height: 5'6" SpO2: 95% Weight: 266 lbs 09/20/2017 Blood Pressure 1: 144/76 Code : 8480-6 BMI: 43.3 Code : 64930-1 Heart Rate 1 : 91 bpm Height: 5'6" SpO2: 98% Weight: 268 lbs 09/05/2017 Blood Pressure 1: 140/78 Code : 8480-6 BMI: 44.7 Code : 46520-4 Heart Rate 1 : 81 bpm Height: 5'6" SpO2: 97% Weight: 277 lbs Functional Status No Functional Status data History of Present Illness Symptom Name Status Result Effective Date Notes back pain Location in the midline of [...] data Encounters Encounter Performer Location Codes Date 94248 EST. PATIENT, LEVEL IV Diagnosis: Dysuria[ICD10: R30.0] Diagnosis: Generalized anxiety disorder[ICD10: F41.1] Diagnosis: Major depressive disorder, single episode, moderate[ICD10: F32.1] Diagnosis: Polycystic ovarian syndrome[ICD10: E28.2] Diagnosis: Low back pain[ICD10: M54.5] Neva Chavarria MD, [facility] CPT-4 : 65144 05/08/2018 06385 EST. PATIENT, LEVEL IV Diagnosis: Other specified hypothyroidism[ICD10: E03.8] Diagnosis: Generalized anxiety disorder[ICD10: F41.1] Diagnosis: Major depressive disorder, single episode, moderate[ICD10: F32.1] Diagnosis: Essential (primary) hypertension[ICD10: I10] Diagnosis: Other malaise[ICD10: R53.81] Diagnosis: Other fatigue[ICD10: R53.83] Neva Chavarria MD, [facility] CPT-4 : 04206 02/28/2018 74427 EST. PATIENT, LEVEL III Diagnosis: Other specified hypothyroidism[ICD10: E03.8] Diagnosis: Generalized anxiety disorder[ICD10: F41.1] Diagnosis: Major depressive disorder, single episode, moderate[ICD10: F32.1] Neva Chavarria MD, [facility] CPT-4: 22832 01/23/2018 94809 EST. PATIENT, LEVEL IV Diagnosis: Other acute sinusitis[ICD10: J01.80] Diagnosis: Other allergic rhinitis[ICD10: J30.89] Diagnosis: Essential (primary) hypertension[ICD10: I10] Neva Chavarria MD, [facility] CPT-4: 81640 10/25/2017 10421 EST. PATIENT, LEVEL III Diagnosis: Other fatigue[ICD10: R53.83] Diagnosis: Other malaise[ICD10: R53.81] Diagnosis: Essential (primary) hypertension[ICD10: I10] Diagnosis: Generalized anxiety disorder[ICD10: F41.1] Diagnosis: Major depressive disorder, single episode, moderate[ICD10: F32.1] Neva Chavarria MD, [facility] CPT-4: 52657 09/20/2017 OFFICE VISIT, NEW - LEVEL 3 Diagnosis: Essential (primary) hypertension[ICD10: I10] Diagnosis: Generalized anxiety disorder[ICD10: F41.1] Diagnosis: Major depressive disorder, single episode, moderate[ICD10: F32.1] [facility] CPT-4: 88358 09/05/2017 Plan of Care Planned Activity Notes Codes Status Date Ref[facility]: [phone] [facility] Ref[facility] Initiated 06/14/2018 Ref[facility]: [phone] [facility] [facility] will be called by there office for appt Initiated 05/16/2018 Care Plan: Referral Order SNOMED-CT : [id number] Pending 05/09/2018 Visit Plan: PCOS - will [...] this patient. 05/08/2018 Appointment: Neva Brito [facility]Ptel[facility] ([facility] min[facility] Moderate 05/08/2018 Patient Education: Patient [...] as indicated 02/28/2018 Appointment: [facility] [phone] [facility] (30 min) Complex 02/28/2018 Patient Education: Patient [...] control. 01/23/2018 App[facility]ment: [facility] [phone] [facility] (15 min) Moderate 01/23/2018 Patient Education: Patient [...] at home. 10/25/2017 Appointment: Neva Brito WPtel: [address] [place], [place] [id number] (15 min) Moderate 10/25/2017 Patient Education: Patient [...] or concerns. 09/20/2017 Appointment: Neva Brito WPtel: [facility] (15 min) Moderate 09/20/2017 Patient Education: Patient [...] above medications. 09/05/2017 Appointment: Neva Brito WPtel: [facility] New Patient 09/05/2017 Patient Education: Patient Medication Summary Completed 09/05/2017 Referral: Cathy Manriquez WPtel: [phone] [place], [place] [phone] Referral Initiated Instructions Comment Refer to OB [...] change in blood pressure readings at home. Decrease wellbutrin to 150mg daily x 1 [...]
--- OUTSIDE RECORDS SUMMARY | 2018-07-07 09:40 | XMS REPORT | CCD ---
Author Author [facility]a [facility] Address [address] [place] [address] Phone Care Team Providers Care Control Center Operator Name Role Phone PP Unavailable CCM Unavailable Summary Purpose Interface Exchange Insurance Providers Payer name Policy type / Coverage type Covered green party ID Effective Begin Date Effective End Date [facility] [id number] 2017 Unknown Family history Mother Diagnosis Age [...] Start Date Stop Date Status Fill Instructions tramadol 50 mg tablet RxNorm: 175905 1 Tablet(s) PO QID as needed for pain 05/11/2018 05/15/2018 Active Cipro 500 mg tablet RxNorm: 258909 1 Tablet(s) PO BID 201705/20/2018 Active Diflucan 150 mg tablet RxNorm: 752177 1 Tablet(s) PO daily 07/201705/17/2018 Active Cipro 500 mg tablet RxNorm: 555206 1 Tablet(s) PO BID 201705/10/2018 Inactive naproxen 500 mg tablet RxNorm: 112995 1 Tablet(s) PO BID 201705/12/2018 Active Xanax 0.5 mg tablet RxNorm: 375140 1 Tablet(s) PO BID as needed 05/08/2018 08/05/2018 Active baclofen 10 mg tablet RxNorm: 813282 1 Tablet(s) PO TID as needed muscle spasms 05/08/2018 05/12/2018 Active Prozac 20 mg capsule RxNorm: 620914 2 CAPSULE(S) PO DAILY 04/1708/14/2018 Active lisinopril 20 mg tablet RxNorm: 005048 1 TABLET(S) PO DAILY 02/201810/13/2018 Active Prozac 20 mg capsule RxNorm: 664789 3 Capsule(s) PO daily 03/0204/30/2018 Inactive fluoxetine 60 mg tablet RxNorm: 3217726 1 Tablet(s) PO daily 03/01/2018 Inactive Xanax 0.5 mg tablet RxNorm: 469705 1 Tablet(s) PO BID as needed 02/27/2018 05/07/2018 Inactive Prozac 20 mg capsule RxNorm: 301838 2 Capsule(s) PO daily 02/2003/01/2018 Inactive Wellbutrin XL 150 mg 24 hr tablet, extended release RxNorm: 383759 1 Tablet(s) PO UD 01/23/2018 No Stop Date Active Prozac 20 mg capsule RxNorm: 218684 1 Capsule(s) PO daily x 1 week then 2 pills daily 01/23/2018 02/19/2018 Inactive Xanax 0.5 mg tablet RxNorm: 072538 1 Tablet(s) PO BID 201702/26/2018 Inactive metoprolol succinate ER 25 mg tablet,extended release 24 hr RxNorm: 338443 1 Tablet(s) PO daily 10/31/2017 11/29/2017 Inactive ceftriaxone 500 mg solution for injection RxNorm: 0006729 Inj 10/25/2017 10/25/2017 Inactive Keflex 500 mg capsule RxNorm: 513134 1 Capsule(s) PO TID 201710/31/2017 Inactive Diflucan 150 mg tablet RxNorm: 697140 1 Tablet(s) PO daily 10/31/2017 Inactive Kenalog 40 mg/mL suspension for injection RxNorm: 4396281 Milliliter(s) Inj 10/25/2017 10/25/2017 Inactive Xanax 0.5 mg tablet RxNorm: 639287 1 Tablet(s) PO BID 201712/18/2017 Inactive lisinopril 20 mg tablet RxNorm: 576296 1 TABLET(S) PO DAILY 06/201804/16/2018 Inactive Xanax 0.5 mg tablet RxNorm: 662534 1 Tablet(s) PO BID 201710/18/2017 Inactive lisinopril 20 mg tablet RxNorm: 909343 1 Tablet(s) PO daily 10/19/2017 Inactive Xanax 0.25 mg tablet RxNorm: 221011 1 Tablet(s) PO BID as needed 09/05/2017 09/13/2017 Inactive lisinopril 10 mg tablet RxNorm: 526395 1 Tablet(s) PO daily 09/13/2017 Inactive bupropion HCl XL 300 mg 24 hr tablet, extended release RxNorm: 545362 1 Tablet(s) PO daily 09/05/2017 02/15/2018 Inactive spironolactone 100 mg tablet RxNorm: 284405 1 Tablet(s) PO daily No Start Date Active magnesium oral RxNorm : 6574 oral No Start Date Active Vitamin D3 5,000 unit tablet RxNorm: 294806 1 Tablet(s) PO daily No Start Date Active allopurinol 300 mg tablet RxNorm: 734336 1 Tablet(s) PO daily No Start Date Active liothyronine 5 mcg tablet RxNorm: 381929 1 Tablet(s) PO QAM and 1 early afternoon No Start Date Active metformin 1,000 mg tablet RxNorm: 739464 1 Tablet(s) PO daily No Start Date Active Nature Thyroid 60 mg tablet RxNorm: 222454 1 Tablet(s) PO QAM and 1 early afternoon No Start Date Active Medication Administered Medication Codes Instructions Start Date Status ceftriaxone 500 mg solution for injection RxNorm: 8928999 10/25/2017 No longer Active Kenalog 40 mg/mL suspension for injection RxNorm: 2401080 Milliliter 10/25/2017 No longer Active Immunizations No [...] Item Item Code Result Date Culture Urine [id number] URINE CULTURE SEE NOTES 05/11/2018 Culture Urine [id number] Continued Results 05/11/2018 Urine Culture Ucult Complete >100,000 col/ml aerobic growth sent to ref lab 05/09/2018 Total T3 Ord42 TT3 2.60 ng/ml 02/28/2018 Free T4 Hqg509 FREE T4 0.85 ng/dL 02/28/2018 Tsh Ord6 TSH (3rd IS) 1.89 uIU/mL 02/28/2018 %Hba1C Fcr531 % HbA1c 63789-6 5.7 % 02/28/2018 %Hba1C Xrh555 Gluc Ave 117 mg/dL 02/28/2018 Lymes Disease Total Antibodies With Western Blot Reflex [id number] B. BURGDORFERI, IGG/IGM 0.139 09/26/2017 [facility] Disease Total Antibodies With Western Blot Reflex [id number] 09/26/2017 [place] Spotted Fever Igg/Igm 444068 [place] SPOTTED FEVER IGM EIA . 09/24/2017 [place] Spotted Fever Igg/Igm 747058 RMSF, IGM 0.28 index 09/24/2017 [place] Spotted Fever Igg/Igm 762672 [place] SPOTTED FEVER IGG EIA FLEX . 09/24/2017 [place] Spotted Fever Igg/Igm 884385 RMSF, IGG SCREEN-FLEX Negative 09/24/2017 Ehrlichia Chaffeensis Antibody Igm 884308 EHRLICHIA CHAFFEENSIS IGM < 1:16 09/22/2017 Ehrlichia Chaffeensis Antibody Igg 971674 EHRLICHIA CHAFFEENSIS IGG <1:64 09/22/2017 Sabiha 016868 SABIHA (BLAIR) SCREEN NONE DETECTED 09/21/2017 Ra Factor Lps915 RA FACTOR <10 IU/ml 09/20/2017 Free T4 Odf742 FREE T4 0.65 ng/dL 09/20/2017 Sed Rate [...] Code : 8480-6 BMI: 44.7 Code : 06454-9 Heart Rate 1 : 87 bpm Height: 5'6" SpO2: 98% Weight: 277 lbs 02/28/2018 Blood Pressure 1: 130/72 Code : 8480-6 BMI: 43.9 Code : 75759-5 Heart Rate 1 : 65 bpm Height: 5'6" SpO2: 97% Weight: 272 lbs 01/23/2018 Blood Pressure 1: 122/60 Code : 8480-6 BMI: 43.9 Code : 76865-6 Heart Rate 1 : 87 bpm Height: 5'6" SpO2: 97% Weight: 272 lbs 10/25/2017 Blood Pressure 1: 124/76 Code : 8480-6 BMI: 42.9 Code : 09261-7 Heart Rate 1 : 94 bpm Height: 5'6" SpO2: 95% Weight: 266 lbs 09/20/2017 Blood Pressure 1: 144/76 Code : 8480-6 BMI: 43.3 Code : 14393-9 Heart Rate 1 : 91 bpm Height: 5'6" SpO2: 98% Weight: 268 lbs 09/05/2017 Blood Pressure 1: 140/78 Code : 8480-6 BMI: 44.7 Code : 34952-4 Heart Rate 1 : 81 bpm Height: [...] data Encounters Encounter Performer Location Codes Date 56347 EST. PATIENT, LEVEL IV Diagnosis: Dysuria[ICD10: R30.0] Diagnosis: Generalized anxiety disorder[ICD10: F41.1] Diagnosis: Major depressive disorder, single episode, moderate[ICD10: F32.1] Diagnosis: Polycystic ovarian syndrome[ICD10: E28.2] Diagnosis: Low back pain[ICD10: M54.5] Neva Chavarria MD, [facility] CPT-4 : 56300 05/08/2018 09659 EST. PATIENT, LEVEL IV Diagnosis: Other specified hypothyroidism[ICD10: E03.8] Diagnosis: Generalized anxiety disorder[ICD10: F41.1] Diagnosis: Major depressive disorder, single episode, moderate[ICD10: F32.1] Diagnosis: Essential (primary) hypertension[ICD10: I10] Diagnosis: Other malaise[ICD10: R53.81] Diagnosis: Other fatigue[ICD10: R53.83] Neva Chavarria MD, [facility] CPT-4 : 56861 02/28/2018 44091 EST. PATIENT, LEVEL III Diagnosis: Other specified hypothyroidism[ICD10: E03.8] Diagnosis: Generalized anxiety disorder[ICD10: F41.1] Diagnosis: Major depressive disorder, single episode, moderate[ICD10: F32.1] Neva Chavarria MD, [facility] CPT-4: 53275 01/23/2018 59760 EST. PATIENT, LEVEL IV Diagnosis: Other acute sinusitis[ICD10: J01.80] Diagnosis: Other allergic rhinitis[ICD10: J30.89] Diagnosis: Essential (primary) hypertension[ICD10: I10] Neva Chavarria MD, [facility] CPT-4: 45880 10/25/2017 15104 EST. PATIENT, LEVEL III Diagnosis: Other fatigue[ICD10: R53.83] Diagnosis: Other malaise[ICD10: R53.81] Diagnosis: Essential (primary) hypertension[ICD10: I10] Diagnosis: Generalized anxiety disorder[ICD10: F41.1] Diagnosis: Major depressive disorder, single episode, moderate[ICD10: F32.1] Neva Chavarria MD, [facility] CPT-4: 43959 09/20/2017 OFFICE VISIT, NEW - LEVEL 3 Diagnosis: Essential (primary) hypertension[ICD10: I10] Diagnosis: Generalized anxiety disorder[ICD10: F41.1] Diagnosis: Major depressive disorder, single episode, moderate[ICD10: F32.1] Neva Chavarria MD, [facility] CPT-4: 18754 09/05/2017 Plan of Care Planned Activity Notes Codes Status Date Care Plan: Referral Order SNOMED-CT : [id number] Pending 05/09/2018 Visit Plan: PCOS - will [...] patient. 05/08/2018 Appointment: Neva Brito WPtel: [phone] [facility] (15 min) Moderate 05/08/2018 Patient Education: [...] indicated 02/28/2018 Appointment: Neva Brito WPtel: [phone] [facility] (30 min) Complex 02/28/2018 Patient Education: [...] control. 01/23/2018 [facility]: [phone] ([facility] min) Moderate 01/23/2018 Patient Education: Patient [...] at home. 10/25/2017 Appointment: Neva Brito WPtel: [address] [place], [place] [address] (15 min) Moderate 10/25/2017 Patient Education: Patient [...] concerns. 09/20/2017 Appointment: [facility]el[facility] [phone] [facility] (15 min) Moderate 09/20/2017 Patient Education: Patient [...] above medications. 09/05/2017 Appointment: Neva Brito WPtel: [facility] New Patient 09/05/2017 Patient Education: Patient Medication Summary Completed 09/05/2017 Referral: Cathy Manriquez WPtel: [address] [place], [place] [phone] Referral Initiated Instructions Comment Refer to OB [...]
--- OUTSIDE RECORDS SUMMARY | 2018-07-07 09:41 | XMS REPORT | CCD ---
Author Author [facility] Address [address] [place] [address] Phone Care Team Providers Care [facility] Loss Prevention Manager Name Role Phone PP Unavailable CCM Unavailable Summary Purpose Interface Exchange Insurance Providers Payer name Policy type / Coverage type Covered libertarian ID Effective Begin Date Effective End Date [facility] [id number] 2017 Unknown Family history Mother Diagnosis Age [...] Start Date Stop Date Status Fill Instructions Cipro 500 mg tablet RxNorm: 209384 1 Tablet(s) PO BID 201705/20/2018 Active Cipro 500 mg tablet RxNorm: 500718 1 Tablet(s) PO BID 201705/10/2018 Inactive naproxen 500 mg tablet RxNorm: 298496 1 Tablet(s) PO BID 201705/12/2018 Active Xanax 0.5 mg tablet RxNorm: 791913 1 Tablet(s) PO BID as needed 05/08/2018 08/05/2018 Active baclofen 10 mg tablet RxNorm: 547625 1 Tablet(s) PO TID as needed muscle spasms 05/08/2018 05/12/2018 Active Prozac 20 mg capsule RxNorm: 566907 2 CAPSULE(S) PO DAILY 04/1708/14/2018 Active lisinopril 20 mg tablet RxNorm: 742087 1 TABLET(S) PO DAILY 02/201810/13/2018 Active Prozac 20 mg capsule RxNorm: 390958 3 Capsule(s) PO daily 03/0204/30/2018 Inactive fluoxetine 60 mg tablet RxNorm: 0790421 1 Tablet(s) PO daily 03/01/2018 Inactive Xanax 0.5 mg tablet RxNorm: 901561 1 Tablet(s) PO BID as needed 02/27/2018 05/07/2018 Inactive Prozac 20 mg capsule RxNorm: 809301 2 Capsule(s) PO daily 02/2003/01/2018 Inactive Wellbutrin XL 150 mg 24 hr tablet, extended release RxNorm: 621701 1 Tablet(s) PO UD 01/23/2018 No Stop Date Active Prozac 20 mg capsule RxNorm: 549773 1 Capsule(s) PO daily x 1 week then 2 pills daily 01/23/2018 02/19/2018 Inactive Xanax 0.5 mg tablet RxNorm: 840507 1 Tablet(s) PO BID 201702/26/2018 Inactive metoprolol succinate ER 25 mg tablet,extended release 24 hr RxNorm: 831771 1 Tablet(s) PO daily 10/31/2017 11/29/2017 Inactive ceftriaxone 500 mg solution for injection RxNorm: 1167730 Inj 10/25/2017 10/25/2017 Inactive Keflex 500 mg capsule RxNorm: 421651 1 Capsule(s) PO TID 201710/31/2017 Inactive Diflucan 150 mg tablet RxNorm: 347371 1 Tablet(s) PO daily 10/31/2017 Inactive Kenalog 40 mg/mL suspension for injection RxNorm: 2226909 Milliliter(s) Inj 10/25/2017 10/25/2017 Inactive Xanax 0.5 mg tablet RxNorm: 980419 1 Tablet(s) PO BID 201712/18/2017 Inactive lisinopril 20 mg tablet RxNorm: 074351 1 TABLET(S) PO DAILY 06/201804/16/2018 Inactive Xanax 0.5 mg tablet RxNorm: 580365 1 Tablet(s) PO BID 201710/18/2017 Inactive lisinopril 20 mg tablet RxNorm: 304714 1 Tablet(s) PO daily 10/19/2017 Inactive Xanax 0.25 mg tablet RxNorm: 909101 1 Tablet(s) PO BID as needed 09/05/2017 09/13/2017 Inactive lisinopril 10 mg tablet RxNorm: 407212 1 Tablet(s) PO daily 09/13/2017 Inactive bupropion HCl XL 300 mg 24 hr tablet, extended release RxNorm: 350633 1 Tablet(s) PO daily 09/05/2017 02/15/2018 Inactive spironolactone 100 mg tablet RxNorm: 158749 1 Tablet(s) PO daily No Start Date Active magnesium oral RxNorm : 6574 oral No Start Date Active Vitamin D3 5,000 unit tablet RxNorm: 251667 1 Tablet(s) PO daily No Start Date Active allopurinol 300 mg tablet RxNorm: 842547 1 Tablet(s) PO daily No Start Date Active liothyronine 5 mcg tablet RxNorm: 210908 1 Tablet(s) PO QAM and 1 early afternoon No Start Date Active metformin 1,000 mg tablet RxNorm: 058015 1 Tablet(s) PO daily No Start Date Active Nature Thyroid 60 mg tablet RxNorm: 223647 1 Tablet(s) PO QAM and 1 early afternoon No Start Date Active Medication Administered Medication Codes Instructions Start Date Status ceftriaxone 500 mg solution for injection RxNorm: 5975619 10/25/2017 No longer Active Kenalog 40 mg/mL suspension for injection RxNorm: 5281310 Milliliter 10/25/2017 No longer Active Immunizations No [...] Item Item Code Result Date Culture Urine [id number] URINE CULTURE SEE NOTES 05/11/2018 Culture Urine [id number] Continued Results 05/11/2018 Urine Culture Ucult Complete >100,000 col/ml aerobic growth sent to ref lab 05/09/2018 Total T3 Ord42 TT3 2.60 ng/ml 02/28/2018 Free T4 Oia533 FREE T4 0.85 ng/dL 02/28/2018 Tsh Ord6 TSH (3rd IS) 1.89 uIU/mL 02/28/2018 %Hba1C Eom833 % HbA1c 96310-8 5.7 % 02/28/2018 %Hba1C Bpt707 Gluc Ave 117 mg/dL 02/28/2018 [facility]ym[facility] Disease Total Antibodies With Western Blot Reflex 249408 B. BURGDORFERI, IGG/IGM 0.139 09/26/2017 [place] Total Antibodies With Western Blot Reflex [id number] 09/26/2017 [place] Spotted Fever Igg/Igm 491539 [place] SPOTTED FEVER IGM EIA . 09/24/2017 [place] Spotted Fever Igg/Igm 639736 RMSF, IGM 0.28 index 09/24/2017 [place] Spotted Fever Igg/Igm 147247 [place] SPOTTED FEVER IGG EIA FLEX . 09/24/2017 [place] Spotted Fever Igg/Igm 446763 RMSF, IGG SCREEN-FLEX Negative 09/24/2017 Ehrlichia Chaffeensis Antibody Igm 786128 EHRLICHIA CHAFFEENSIS IGM < 1:16 09/22/2017 Ehrlichia Chaffeensis Antibody Igg 078394 EHRLICHIA CHAFFEENSIS IGG <1:64 09/22/2017 Sabiha [id number] SABIHA (BLAIR) SCREEN NONE DETECTED 09/21/2017 Ra Factor Ibu831 RA FACTOR <10 IU/ml 09/20/2017 Free T4 Hly270 FREE T4 0.65 ng/dL 09/20/2017 Sed Rate [...] Code : 8480-6 BMI: 44.7 Code : 62792-2 Heart Rate 1 : 87 bpm Height: 5'6" SpO2: 98% Weight: 277 lbs 02/28/2018 Blood Pressure 1: 130/72 Code : 8480-6 BMI: 43.9 Code : 23247-6 Heart Rate 1 : 65 bpm Height: 5'6" SpO2: 97% Weight: 272 lbs 01/23/2018 Blood Pressure 1: 122/60 Code : 8480-6 BMI: 43.9 Code : 39009-6 Heart Rate 1 : 87 bpm Height: 5'6" SpO2: 97% Weight: 272 lbs 10/25/2017 Blood Pressure 1: 124/76 Code : 8480-6 BMI: 42.9 Code : 64578-0 Heart Rate 1 : 94 bpm Height: 5'6" SpO2: 95% Weight: 266 lbs 09/20/2017 Blood Pressure 1: 144/76 Code : 8480-6 BMI: 43.3 Code : 96782-6 Heart Rate 1 : 91 bpm Height: 5'6" SpO2: 98% Weight: 268 lbs 09/05/2017 Blood Pressure 1: 140/78 Code : 8480-6 BMI: 44.7 Code : 48743-1 Heart Rate 1 : 81 bpm Height: [...] data Encounters Encounter Performer Location Codes Date 52842 EST. PATIENT, LEVEL IV Diagnosis: Dysuria[ICD10: R30.0] Diagnosis: Generalized anxiety disorder[ICD10: F41.1] Diagnosis: Major depressive disorder, single episode, moderate[ICD10: F32.1] Diagnosis: Polycystic ovarian syndrome[ICD10: E28.2] Diagnosis: Low back pain[ICD10: M54.5] Neva Chavarria MD, [facility] CPT-4 : 44909 05/08/2018 27019 EST. PATIENT, LEVEL IV Diagnosis: Other specified hypothyroidism[ICD10: E03.8] Diagnosis: Generalized anxiety disorder[ICD10: F41.1] Diagnosis: Major depressive disorder, single episode, moderate[ICD10: F32.1] Diagnosis: Essential (primary) hypertension[ICD10: I10] Diagnosis: Other malaise[ICD10: R53.81] Diagnosis: Other fatigue[ICD10: R53.83] Neva Chavarria MD, [facility] CPT-4 : 44464 02/28/2018 67777 EST. PATIENT, LEVEL III Diagnosis: Other specified hypothyroidism[ICD10: E03.8] Diagnosis: Generalized anxiety disorder[ICD10: F41.1] Diagnosis: Major depressive disorder, single episode, moderate[ICD10: F32.1] Neva Chavarria MD, [facility] CPT-4: 39265 01/23/2018 99295 EST. PATIENT, LEVEL IV Diagnosis: Other acute sinusitis[ICD10: J01.80] Diagnosis: Other allergic rhinitis[ICD10: J30.89] Diagnosis: Essential (primary) hypertension[ICD10: I10] Neva Chavarria MD, [facility] CPT-4: 52863 10/25/2017 00498 EST. PATIENT, LEVEL III Diagnosis: Other fatigue[ICD10: R53.83] Diagnosis: Other malaise[ICD10: R53.81] Diagnosis: Essential (primary) hypertension[ICD10: I10] Diagnosis: Generalized anxiety disorder[ICD10: F41.1] Diagnosis: Major depressive disorder, single episode, moderate[ICD10: F32.1] Neva Chavarria MD, [facility] CPT-4: 68896 09/20/2017 OFFICE VISIT, NEW - LEVEL 3 Diagnosis: Essential (primary) hypertension[ICD10: I10] Diagnosis: Generalized anxiety disorder[ICD10: F41.1] Diagnosis: Major depressive disorder, single episode, moderate[ICD10: F32.1] Neva Chavarria MD, [facility] CPT-4: 28897 09/05/2017 Plan of Care Planned Activity Notes Codes Status Date Care Plan: Referral Order SNOMED-CT : 720761159 Pending 05/09/2018 Visit Plan: PCOS - will [...] patient. 05/08/2018 [facility] [phone] [facility] ([facility] Moderate 05/08/2018 Patient Education: [...] indicated 02/28/2018 Appointment: [facility] [phone] [facility] (30 min) Complex 02/28/2018 Patient Education: [...] of control. 01/23/2018 Appointment: Neva Brito [facility]Ptel[facility] (15 min) Moderate 01/23/2018 Patient Education: [...] home. 10/25/2017 App[facility]ment: [facility] [phone] [facility] (15 min) Moderate 10/25/2017 Patient Education: Patient [...] concerns. 09/20/2017 Appointment: [facility] [phone] [facility] (15 min) Moderate 09/20/2017 Patient Education: [...] medications. 09/05/2017 App[facility]ment: [facility] [phone] [facility] New Patient 09/05/2017 Patient Education: Patient Medication Summary Completed 09/05/2017 Referral: Cathy Manriquez WPtel: [phone] [place], [place] [address] Referral Initiated Instructions Comment Refer to OB [...]
--- OUTSIDE RECORDS SUMMARY | 2018-07-07 09:42 | XMS REPORT | CCD ---
Author Author [facility] Address [address] [place] [address] Phone Care Team Providers Care Wardrobe Specialist Name Role Phone PP Unavailable CCM Unavailable Summary Purpose Interface Exchange Insurance Providers Payer name Policy type / Coverage type Covered green party ID Effective Begin Date Effective End Date [facility] [id number] 2017 Unknown Family history Mother Diagnosis Age [...] Fill Instructions naproxen 500 mg tablet RxNorm: 777429 1 Tablet(s) PO BID 201705/12/2018 Active Xanax 0.5 mg tablet RxNorm: 363103 1 Tablet(s) PO BID as needed 05/08/2018 08/05/2018 Active baclofen 10 mg tablet RxNorm: 435472 1 Tablet(s) PO TID as needed muscle spasms 05/08/2018 05/12/2018 Active Prozac 20 mg capsule RxNorm: 062952 2 CAPSULE(S) PO DAILY 04/1708/14/2018 Active lisinopril 20 mg tablet RxNorm: 697925 1 TABLET(S) PO DAILY 02/201810/13/2018 Active Prozac 20 mg capsule RxNorm: 462516 3 Capsule(s) PO daily 03/0204/30/2018 Inactive fluoxetine 60 mg tablet RxNorm: 3756302 1 Tablet(s) PO daily 03/01/2018 Inactive Xanax 0.5 mg tablet RxNorm: 489585 1 Tablet(s) PO BID as needed 02/27/2018 05/07/2018 Inactive Prozac 20 mg capsule RxNorm: 232366 2 Capsule(s) PO daily 02/2003/01/2018 Inactive Wellbutrin XL 150 mg 24 hr tablet, extended release RxNorm: 482032 1 Tablet(s) PO UD 01/23/2018 No Stop Date Active Prozac 20 mg capsule RxNorm: 105622 1 Capsule(s) PO daily x 1 week then 2 pills daily 01/23/2018 02/19/2018 Inactive Xanax 0.5 mg tablet RxNorm: 313235 1 Tablet(s) PO BID 201702/26/2018 Inactive metoprolol succinate ER 25 mg tablet,extended release 24 hr RxNorm: 949635 1 Tablet(s) PO daily 10/31/2017 11/29/2017 Inactive ceftriaxone 500 mg solution for injection RxNorm: 0114633 Inj 10/25/2017 10/25/2017 Inactive Keflex 500 mg capsule RxNorm: 359880 1 Capsule(s) PO TID 201710/31/2017 Inactive Diflucan 150 mg tablet RxNorm: 280408 1 Tablet(s) PO daily 10/31/2017 Inactive Kenalog 40 mg/mL suspension for injection RxNorm: 3557491 Milliliter(s) Inj 10/25/2017 10/25/2017 Inactive Xanax 0.5 mg tablet RxNorm: 172262 1 Tablet(s) PO BID 201712/18/2017 Inactive lisinopril 20 mg tablet RxNorm: 367982 1 TABLET(S) PO DAILY 06/201804/16/2018 Inactive Xanax 0.5 mg tablet RxNorm: 658879 1 Tablet(s) PO BID 201710/18/2017 Inactive lisinopril 20 mg tablet RxNorm: 912544 1 Tablet(s) PO daily 10/19/2017 Inactive Xanax 0.25 mg tablet RxNorm: 992761 1 Tablet(s) PO BID as needed 09/05/2017 09/13/2017 Inactive lisinopril 10 mg tablet RxNorm: 285899 1 Tablet(s) PO daily 09/13/2017 Inactive bupropion HCl XL 300 mg 24 hr tablet, extended release RxNorm: 064507 1 Tablet(s) PO daily 09/05/2017 02/15/2018 Inactive spironolactone 100 mg tablet RxNorm: 915393 1 Tablet(s) PO daily No Start Date Active magnesium oral RxNorm : 6574 oral No Start Date Active Vitamin D3 5,000 unit tablet RxNorm: 742423 1 Tablet(s) PO daily No Start Date Active allopurinol 300 mg tablet RxNorm: 757537 1 Tablet(s) PO daily No Start Date Active liothyronine 5 mcg tablet RxNorm: 833267 1 Tablet(s) PO QAM and 1 early afternoon No Start Date Active metformin 1,000 mg tablet RxNorm: 345393 1 Tablet(s) PO daily No Start Date Active Nature Thyroid 60 mg tablet RxNorm: 923999 1 Tablet(s) PO QAM and 1 early afternoon No Start Date Active Medication Administered Medication Codes Instructions Start Date Status ceftriaxone 500 mg solution for injection RxNorm: 9825075 10/25/2017 No longer Active Kenalog 40 mg/mL suspension for injection RxNorm: 3134000 Milliliter 10/25/2017 No longer Active Immunizations No [...] Item Item Code Result Date Culture Urine [id number] URINE CULTURE SEE NOTES 05/11/2018 Culture Urine [id number] Continued Results 05/11/2018 Urine Culture Ucult Complete >100,000 col/ml aerobic growth sent to ref lab 05/09/2018 %Hba1C Kqk434 % HbA1c 22721-6 5.7 % 02/28/2018 %Hba1C Odx044 Gluc Ave 117 mg/dL 02/28/2018 Tsh Ord6 TSH (3rd IS) 1.89 uIU/mL 02/28/2018 Free T4 Oqv212 FREE T4 0.85 ng/dL 02/28/2018 Total T3 Ord42 TT3 2.60 ng/ml 02/28/2018 [facility] Total Antibodies With Western Blot Reflex 128147 B. BURGDORFERI, IGG/IGM 0.139 09/26/2017 [facility] Total Antibodies With Western Blot Reflex [id number] 09/26/2017 [place] Spotted Fever Igg/Igm 747736 [place] SPOTTED FEVER IGM EIA . 09/24/2017 [place] Spotted Fever Igg/Igm 955857 RMSF, IGM 0.28 index 09/24/2017 [place] Spotted Fever Igg/Igm 975601 [place] SPOTTED FEVER IGG EIA FLEX . 09/24/2017 [place] Spotted Fever Igg/Igm 047932 RMSF, IGG SCREEN-FLEX Negative 09/24/2017 Ehrlichia Chaffeensis Antibody Igg 512562 EHRLICHIA CHAFFEENSIS IGG <1:64 09/22/2017 Ehrlichia Chaffeensis Antibody Igm 062525 EHRLICHIA CHAFFEENSIS IGM < 1:16 09/22/2017 Sabiha 098126 SABIHA (BLAIR) SCREEN NONE DETECTED 09/21/2017 Free T4 Ayr214 FREE T4 0.65 ng/dL 09/20/2017 C-Reactive Protein Qnt Crqnt CRP 0.8 mg/dl 09/20/2017 Sed Rate Ord21 ESR 24 mm/hr 09/20/2017 Ra Factor Oof977 RA FACTOR <10 IU/ml 09/20/2017 Review of Systems System Result Effective [...] Effective Dates Notes Full Exam - General 1995 Constitutional general appearance Overall: well developed 05/08/2018 [...] Code : 8480-6 BMI: 44.7 Code : 36581-5 Heart Rate 1 : 87 bpm Height: 5'6" SpO2: 98% Weight: 277 lbs 02/28/2018 Blood Pressure 1: 130/72 Code : 8480-6 BMI: 43.9 Code : 15258-9 Heart Rate 1 : 65 bpm Height: 5'6" SpO2: 97% Weight: 272 lbs 01/23/2018 Blood Pressure 1: 122/60 Code : 8480-6 BMI: 43.9 Code : 22206-4 Heart Rate 1 : 87 bpm Height: 5'6" SpO2: 97% Weight: 272 lbs 10/25/2017 Blood Pressure 1: 124/76 Code : 8480-6 BMI: 42.9 Code : 69891-3 Heart Rate 1 : 94 bpm Height: 5'6" SpO2: 95% Weight: 266 lbs 09/20/2017 Blood Pressure 1: 144/76 Code : 8480-6 BMI: 43.3 Code : 34720-0 Heart Rate 1 : 91 bpm Height: 5'6" SpO2: 98% Weight: 268 lbs 09/05/2017 Blood Pressure 1: 140/78 Code : 8480-6 BMI: 44.7 Code : 00700-0 Heart Rate 1 : 81 bpm Height: [...] data Encounters Encounter Performer Location Codes Date 66575 EST. PATIENT, LEVEL IV Diagnosis: Dysuria[ICD10: R30.0] Diagnosis: Generalized anxiety disorder[ICD10: F41.1] Diagnosis: Major depressive disorder, single episode, moderate[ICD10: F32.1] Diagnosis: Polycystic ovarian syndrome[ICD10: E28.2] Diagnosis: Low back pain[ICD10: M54.5] Neva Chavarria MD, [facility] CPT-4 : 46847 05/08/2018 92556 EST. PATIENT, LEVEL IV Diagnosis: Other specified hypothyroidism[ICD10: E03.8] Diagnosis: Generalized anxiety disorder[ICD10: F41.1] Diagnosis: Major depressive disorder, single episode, moderate[ICD10: F32.1] Diagnosis: Essential (primary) hypertension[ICD10: I10] Diagnosis: Other malaise[ICD10: R53.81] Diagnosis: Other fatigue[ICD10: R53.83] Neva Chavarria MD, [facility] CPT-4 : 00579 02/28/2018 14306 EST. PATIENT, LEVEL III Diagnosis: Other specified hypothyroidism[ICD10: E03.8] Diagnosis: Generalized anxiety disorder[ICD10: F41.1] Diagnosis: Major depressive disorder, single episode, moderate[ICD10: F32.1] Neva Chavarria MD, [facility] CPT-4: 37414 01/23/2018 38018 EST. PATIENT, LEVEL IV Diagnosis: Other acute sinusitis[ICD10: J01.80] Diagnosis: Other allergic rhinitis[ICD10: J30.89] Diagnosis: Essential (primary) hypertension[ICD10: I10] Neva Chavarria MD, [facility] CPT-4: 21894 10/25/2017 54095 EST. PATIENT, LEVEL III Diagnosis: Other fatigue[ICD10: R53.83] Diagnosis: Other malaise[ICD10: R53.81] Diagnosis: Essential (primary) hypertension[ICD10: I10] Diagnosis: Generalized anxiety disorder[ICD10: F41.1] Diagnosis: Major depressive disorder, single episode, moderate[ICD10: F32.1] Neva Chavarria MD, [facility] CPT-4: 61619 09/20/2017 OFFICE VISIT, NEW - LEVEL 3 Diagnosis: Essential (primary) hypertension[ICD10: I10] Diagnosis: Generalized anxiety disorder[ICD10: F41.1] Diagnosis: Major depressive disorder, single episode, moderate[ICD10: F32.1] Neva Chavarria MD, [facility] CPT-4: 01631 09/05/2017 Plan of Care Planned Activity Notes Codes Status Date Care Plan: Referral Order SNOMED-CT : 283331053 Pending 05/09/2018 Visit Plan: PCOS - will [...] patient. 05/08/2018 [facility] [phone] [facility] ([facility] Moderate 05/08/2018 Patient Education: [...] as indicated 02/28/2018 Appointment: [facility] [phone] [facility] (30 min) Complex 02/28/2018 Patient Education: [...] of control. 01/23/2018 Appointment: Nev[facility] Brit[facility]el[facility] ([facility] min) Moderate 01/23/2018 Patient Education: [...] home. 10/25/2017 Appointment: [facility] [phone] [facility] (15 min) Moderate 10/25/2017 Patient Education: [...] or concerns. 09/20/2017 Appointment: [facility] [phone] [facility] (15 min) Moderate 09/20/2017 Patient Education: [...] medications. 09/05/2017 App[facility]ment: [facility] [phone] [facility] New Patient 09/05/2017 Patient Education: Patient Medication Summary Completed 09/05/2017 [facility] [phone] [facility] Referral Initiated Instructions Comment Refer to [...]
--- OUTSIDE RECORDS SUMMARY | 2018-07-07 09:43 | XMS REPORT | CCD ---
Author Author [facility] Address [address] [place] [address] Phone Care Team Providers Care Manager Basketball Name Role Phone PP Unavailable CCM Unavailable Summary Purpose Interface Exchange Insurance Providers Payer name Policy type / Coverage type Covered constitution party ID Effective Begin Date Effective End Date [facility] [id number] 2017 Unknown Family history Mother Diagnosis Age [...] Fill Instructions naproxen 500 mg tablet RxNorm: 956982 1 Tablet(s) PO BID 201705/12/2018 Active Xanax 0.5 mg tablet RxNorm: 969496 1 Tablet(s) PO BID as needed 05/08/2018 08/05/2018 Active baclofen 10 mg tablet RxNorm: 618055 1 Tablet(s) PO TID as needed muscle spasms 05/08/2018 05/12/2018 Active Prozac 20 mg capsule RxNorm: 683770 2 CAPSULE(S) PO DAILY 04/1708/14/2018 Active lisinopril 20 mg tablet RxNorm: 395818 1 TABLET(S) PO DAILY 02/201810/13/2018 Active Prozac 20 mg capsule RxNorm: 821344 3 Capsule(s) PO daily 03/0204/30/2018 Inactive fluoxetine 60 mg tablet RxNorm: 4209079 1 Tablet(s) PO daily 03/01/2018 Inactive Xanax 0.5 mg tablet RxNorm: 678164 1 Tablet(s) PO BID as needed 02/27/2018 05/07/2018 Inactive Prozac 20 mg capsule RxNorm: 641463 2 Capsule(s) PO daily 02/2003/01/2018 Inactive Wellbutrin XL 150 mg 24 hr tablet, extended release RxNorm: 384528 1 Tablet(s) PO UD 01/23/2018 No Stop Date Active Prozac 20 mg capsule RxNorm: 051953 1 Capsule(s) PO daily x 1 week then 2 pills daily 01/23/2018 02/19/2018 Inactive Xanax 0.5 mg tablet RxNorm: 863435 1 Tablet(s) PO BID 201702/26/2018 Inactive metoprolol succinate ER 25 mg tablet,extended release 24 hr RxNorm: 484078 1 Tablet(s) PO daily 10/31/2017 11/29/2017 Inactive ceftriaxone 500 mg solution for injection RxNorm: 9635086 Inj 10/25/2017 10/25/2017 Inactive Keflex 500 mg capsule RxNorm: 293388 1 Capsule(s) PO TID 201710/31/2017 Inactive Diflucan 150 mg tablet RxNorm: 744992 1 Tablet(s) PO daily 10/31/2017 Inactive Kenalog 40 mg/mL suspension for injection RxNorm: 8660726 Milliliter(s) Inj 10/25/2017 10/25/2017 Inactive Xanax 0.5 mg tablet RxNorm: 878968 1 Tablet(s) PO BID 201712/18/2017 Inactive lisinopril 20 mg tablet RxNorm: 117803 1 TABLET(S) PO DAILY 06/201804/16/2018 Inactive Xanax 0.5 mg tablet RxNorm: 238265 1 Tablet(s) PO BID 201710/18/2017 Inactive lisinopril 20 mg tablet RxNorm: 295325 1 Tablet(s) PO daily 10/19/2017 Inactive Xanax 0.25 mg tablet RxNorm: 904808 1 Tablet(s) PO BID as needed 09/05/2017 09/13/2017 Inactive lisinopril 10 mg tablet RxNorm: 359812 1 Tablet(s) PO daily 09/13/2017 Inactive bupropion HCl XL 300 mg 24 hr tablet, extended release RxNorm: 392708 1 Tablet(s) PO daily 09/05/2017 02/15/2018 Inactive spironolactone 100 mg tablet RxNorm: 599776 1 Tablet(s) PO daily No Start Date Active magnesium oral RxNorm : 6574 oral No Start Date Active Vitamin D3 5,000 unit tablet RxNorm: 484743 1 Tablet(s) PO daily No Start Date Active allopurinol 300 mg tablet RxNorm: 008035 1 Tablet(s) PO daily No Start Date Active liothyronine 5 mcg tablet RxNorm: 059883 1 Tablet(s) PO QAM and 1 early afternoon No Start Date Active metformin 1,000 mg tablet RxNorm: 803140 1 Tablet(s) PO daily No Start Date Active Nature Thyroid 60 mg tablet RxNorm: 482701 1 Tablet(s) PO QAM and 1 early afternoon No Start Date Active Medication Administered Medication Codes Instructions Start Date Status ceftriaxone 500 mg solution for injection RxNorm: 7390104 10/25/2017 No longer Active Kenalog 40 mg/mL suspension for injection RxNorm: 7032642 Milliliter 10/25/2017 No longer Active Immunizations No [...] Observation Code Item Item Code Result Date Urine Culture Ucult Complete >100,000 col/ml aerobic growth sent to ref lab 05/09/2018 Total T3 Ord42 TT3 2.60 ng/ml 02/28/2018 Free T4 Gmd275 FREE T4 0.85 ng/dL 02/28/2018 Tsh Ord6 TSH (3rd IS) 1.89 uIU/mL 02/28/2018 %Hba1C Chd073 % HbA1c 88335-3 5.7 % 02/28/2018 %Hba1C Jqm096 Gluc Ave 117 mg/dL 02/28/2018 Lymes Disease Total Antibodies With Western Blot Reflex 252841 B. BURGDORFERI, IGG/IGM 0.139 09/26/2017 Lymes Disease Total Antibodies With Western Blot Reflex 285743 09/26/2017 [place] Spotted Fever Igg/Igm 841170 [place] SPOTTED FEVER IGM EIA . 09/24/2017 [place] Spotted Fever Igg/Igm 910892 RMSF, IGM 0.28 index 09/24/2017 [place] Spotted Fever Igg/Igm 471174 [place] SPOTTED FEVER IGG EIA FLEX . 09/24/2017 [place] Spotted Fever Igg/Igm 970419 RMSF, IGG SCREEN-FLEX Negative 09/24/2017 Ehrlichia Chaffeensis Antibody Igm 340906 EHRLICHIA CHAFFEENSIS IGM < 1:16 09/22/2017 Ehrlichia Chaffeensis Antibody Igg 521280 EHRLICHIA CHAFFEENSIS IGG <1:64 09/22/2017 Sabiha [id number] SABIHA (BLAIR) SCREEN NONE DETECTED 09/21/2017 Ra Factor Usa369 RA FACTOR <10 IU/ml 09/20/2017 Free T4 Tvl182 FREE T4 0.65 ng/dL 09/20/2017 Sed Rate [...] Code : 8480-6 BMI: 44.7 Code : 90579-9 Heart Rate 1 : 87 bpm Height: 5'6" SpO2: 98% Weight: 277 lbs 02/28/2018 Blood Pressure 1: 130/72 Code : 8480-6 BMI: 43.9 Code : 55580-6 Heart Rate 1 : 65 bpm Height: 5'6" SpO2: 97% Weight: 272 lbs 01/23/2018 Blood Pressure 1: 122/60 Code : 8480-6 BMI: 43.9 Code : 06144-4 Heart Rate 1 : 87 bpm Height: 5'6" SpO2: 97% Weight: 272 lbs 10/25/2017 Blood Pressure 1: 124/76 Code : 8480-6 BMI: 42.9 Code : 33818-4 Heart Rate 1 : 94 bpm Height: 5'6" SpO2: 95% Weight: 266 lbs 09/20/2017 Blood Pressure 1: 144/76 Code : 8480-6 BMI: 43.3 Code : 07637-5 Heart Rate 1 : 91 bpm Height: 5'6" SpO2: 98% Weight: 268 lbs 09/05/2017 Blood Pressure 1: 140/78 Code : 8480-6 BMI: 44.7 Code : 70390-8 Heart Rate 1 : 81 bpm Height: [...] data Encounters Encounter Performer Location Codes Date 31456 EST. PATIENT, LEVEL IV Diagnosis: Dysuria[ICD10: R30.0] Diagnosis: Generalized anxiety disorder[ICD10: F41.1] Diagnosis: Major depressive disorder, single episode, moderate[ICD10: F32.1] Diagnosis: Polycystic ovarian syndrome[ICD10: E28.2] Diagnosis: Low back pain[ICD10: M54.5] [facility] CPT-4 : 04014 05/08/2018 54574 EST. PATIENT, LEVEL IV Diagnosis: Other specified hypothyroidism[ICD10: E03.8] Diagnosis: Generalized anxiety disorder[ICD10: F41.1] Diagnosis: Major depressive disorder, single episode, moderate[ICD10: F32.1] Diagnosis: Essential (primary) hypertension[ICD10: I10] Diagnosis: Other malaise[ICD10: R53.81] Diagnosis: Other fatigue[ICD10: R53.83] [facility] CPT-4 : 53932 02/28/2018 10523 EST. PATIENT, LEVEL III Diagnosis: Other specified hypothyroidism[ICD10: E03.8] Diagnosis: Generalized anxiety disorder[ICD10: F41.1] Diagnosis: Major depressive disorder, single episode, moderate[ICD10: F32.1] Neva Chavarria MD, [facility] CPT-4: 48699 01/23/2018 60980 EST. PATIENT, LEVEL IV Diagnosis: Other acute sinusitis[ICD10: J01.80] Diagnosis: Other allergic rhinitis[ICD10: J30.89] Diagnosis: Essential (primary) hypertension[ICD10: I10] Neva Chavarria MD, [facility] CPT-4: 76597 10/25/2017 52534 EST. PATIENT, LEVEL III Diagnosis: Other fatigue[ICD10: R53.83] Diagnosis: Other malaise[ICD10: R53.81] Diagnosis: Essential (primary) hypertension[ICD10: I10] Diagnosis: Generalized anxiety disorder[ICD10: F41.1] Diagnosis: Major depressive disorder, single episode, moderate[ICD10: F32.1] Neva Chavarria MD, [facility] CPT-4: 67286 09/20/2017 OFFICE VISIT, NEW - LEVEL 3 Diagnosis: Essential (primary) hypertension[ICD10: I10] Diagnosis: Generalized anxiety disorder[ICD10: F41.1] Diagnosis: Major depressive disorder, single episode, moderate[ICD10: F32.1] Neva Chavarria MD, [facility] CPT-4: 98671 09/05/2017 Plan of Care Planned Activity Notes Codes Status Date Care Plan: Referral Order SNOMED-CT : [id number] Pending 05/09/2018 Visit Plan: PCOS - will [...] this patient. 05/08/2018 [facility] [phone] [facility] ([facility] min) Moderate 05/08/2018 Patient Education: Patient [...] as indicated 02/28/2018 App[facility]ment: [facility] [phone] [facility] (30 min) Complex 02/28/2018 Patient Education: Patient [...] control. 01/23/2018 [facility]ment: [facility] [phone] [facility] (15 min) Moderate 01/23/2018 Patient Education: Patient [...] home. 10/25/2017 Appointment: Neva Brito WPtel: [phone] [facility] (15 min) Moderate 10/25/2017 Patient Education: [...] or concerns. 09/20/2017 [facility]: [facility] [phone] [facility] (15 min) Moderate 09/20/2017 Patient Education: Patient [...] medications. 09/05/2017 App[facility]ment: [facility] [phone] [facility] New Patient 09/05/2017 Patient Education: Patient Medication Summary Completed 09/05/2017 [facility] [phone] [facility] Referral Initiated Instructions Comment Refer to OB [...]
--- OUTSIDE RECORDS SUMMARY | 2018-07-07 09:44 | XMS REPORT | CCD ---
Author Author [facility] Address [address] [place] [address] Phone Care Team Providers Care Licensed Retail Supervisor Name Role Phone PP Unavailable CCM Unavailable Summary Purpose Interface Exchange Insurance Providers Payer name Policy type / Coverage type Covered alliance party ID Effective Begin Date Effective End Date [facility] [id number] 2017 Unknown Family history Mother Diagnosis Age [...] Codes Condition Status Onset Date Resolved Date Essential (primary) hypertension ICD-9: 401.1 ICD-10: I10 Active 09/05/2017 Unknown Generalized anxiety disorder ICD-9: 300.00 ICD-10: F41.1 Active 09/05/2017 Unknown Major depressive disorder, single episode, moderate [...] Problems Condition Codes Effective Dates Condition Status Essential (primary) hypertension ICD-9: 401.1 ICD-10: I10 09/05/2017 Active Generalized anxiety disorder ICD-9: 300.00 ICD-10: F41.1 09/05/2017 Active Major depressive disorder, single episode, moderate [...] Start Date Stop Date Status Fill Instructions Prozac 20 mg capsule RxNorm: 959069 3 Capsule(s) PO daily 03/0204/30/2018 Active fluoxetine 60 mg tablet RxNorm: 0225087 1 Tablet(s) PO daily 03/01/2018 Inactive Xanax 0.5 mg tablet RxNorm: 812043 1 Tablet(s) PO BID as needed 02/27/2018 05/27/2018 Active Prozac 20 mg capsule RxNorm: 946790 2 Capsule(s) PO daily 02/2003/01/2018 Inactive Wellbutrin XL 150 mg 24 hr tablet, extended release RxNorm: 748823 1 Tablet(s) PO UD 01/23/2018 No Stop Date Active Prozac 20 mg capsule RxNorm: 142417 1 Capsule(s) PO daily x 1 week then 2 pills daily 01/23/2018 02/19/2018 Inactive Xanax 0.5 mg tablet RxNorm: 893188 1 Tablet(s) PO BID 201702/26/2018 Inactive metoprolol succinate ER 25 mg tablet,extended release 24 hr RxNorm: 707027 1 Tablet(s) PO daily 10/31/2017 11/29/2017 Inactive ceftriaxone 500 mg solution for injection RxNorm: 1752995 Inj 10/25/2017 10/25/2017 Inactive Keflex 500 mg capsule RxNorm: 627972 1 Capsule(s) PO TID 201710/31/2017 Inactive Diflucan 150 mg tablet RxNorm: 503444 1 Tablet(s) PO daily 10/31/2017 Inactive Kenalog 40 mg/mL suspension for injection RxNorm: 3386371 Milliliter(s) Inj 10/25/2017 10/25/2017 Inactive Xanax 0.5 mg tablet RxNorm: 248347 1 Tablet(s) PO BID 201712/18/2017 Inactive lisinopril 20 mg tablet RxNorm: 686209 1 TABLET(S) PO DAILY 06/201804/17/2018 Active Xanax 0.5 mg tablet RxNorm: 165292 1 Tablet(s) PO BID 201710/18/2017 Inactive lisinopril 20 mg tablet RxNorm: 520361 1 Tablet(s) PO daily 10/19/2017 Inactive Xanax 0.25 mg tablet RxNorm: 994658 1 Tablet(s) PO BID as needed 09/05/2017 09/13/2017 Inactive lisinopril 10 mg tablet RxNorm: 772987 1 Tablet(s) PO daily 09/13/2017 Inactive bupropion HCl XL 300 mg 24 hr tablet, extended release RxNorm: 997193 1 Tablet(s) PO daily 09/05/2017 02/15/2018 Inactive spironolactone 100 mg tablet RxNorm: 396964 1 Tablet(s) PO daily No Start Date Active magnesium oral RxNorm : 6574 oral No Start Date Active Vitamin D3 5,000 unit tablet RxNorm: 277633 1 Tablet(s) PO daily No Start Date Active allopurinol 300 mg tablet RxNorm: 341384 1 Tablet(s) PO daily No Start Date Active liothyronine 5 mcg tablet RxNorm: 892842 1 Tablet(s) PO QAM and 1 early afternoon No Start Date Active metformin 1,000 mg tablet RxNorm: 038274 1 Tablet(s) PO daily No Start Date Active Nature Thyroid 60 mg tablet RxNorm: 914500 1 Tablet(s) PO QAM and 1 early afternoon No Start Date Active Medication Administered Medication Codes Instructions Start Date Status ceftriaxone 500 mg solution for injection RxNorm: 4021976 10/25/2017 No longer Active Kenalog 40 mg/mL suspension for injection RxNorm: 8468072 Milliliter 10/25/2017 No longer Active Immunizations No Immunization data Assessments Condition Codes Effective Dates Other specified hypothyroidism ICD-10: E03.8 ICD-9: 244.8 01/23/2018 Major depressive disorder, single episode, moderate ICD-10: F32.1 ICD-9: 296.22 01/23/2018 Generalized anxiety disorder ICD-10: F41.1 ICD-9: 300.00 01/23/2018 Essential (primary) hypertension ICD-10: I10 ICD-9: 401.1 10/25/2017 Other acute sinusitis ICD-10: J01.80 ICD-9: 461.8 10/25/2017 Other allergic rhinitis ICD-10: J30.89 ICD-9: 477.8 10/25/2017 Other fatigue ICD-10: R53.83 ICD-9: 780.79 09/20/2017 Other malaise ICD-10: R53.81 ICD-9: 780.79 09/20/2017 Reason For Visit Reason For Visit Effective Dates Notes medication follow up 01/23/2018 sinus congestion 10/25/2017 hypertension 09/20/2017 anxiety 09/05/2017 Results Observation Observation Code Item Item Code Result Date Lymes Disease Total Antibodies With Western Blot Reflex [id number] B. BURGDORFERI, IGG/IGM 0.139 09/26/2017 Lymes Disease Total Antibodies With Western Blot Reflex 366032 09/26/2017 [employer] Spotted Fever Igg/Igm 625965 [place] SPOTTED FEVER IGM EIA . 09/24/2017 [employer] Spotted Fever Igg/Igm 247380 RMSF, IGM 0.28 index 09/24/2017 [employer] Spotted Fever Igg/Igm 059988 [place] SPOTTED FEVER IGG EIA FLEX . 09/24/2017 [employer] Spotted Fever Igg/Igm 973461 RMSF, IGG SCREEN-FLEX Negative 09/24/2017 Ehrlichia Chaffeensis Antibody Igm 784489 EHRLICHIA CHAFFEENSIS IGM < 1:16 09/22/2017 Ehrlichia Chaffeensis Antibody Igg 589560 EHRLICHIA CHAFFEENSIS IGG <1:64 09/22/2017 Sabiha 971116 SABIHA (BLAIR) SCREEN NONE DETECTED 09/21/2017 Ra Factor Ika583 RA FACTOR <10 IU/ml 09/20/2017 Free T4 Dcx589 FREE T4 0.65 ng/dL 09/20/2017 Sed Rate [...] nourished 09/20/2017 None Full Exam - General 1995 Eyes conjunctiva /eyelids Overall: conjunctiva clear 09/20/2017 [...] CPT-4: J0696 10/25/2017 Vital Signs Date Vital 01/23/2018 Blood Pressure 1: 122/60 Code : 8480-6 BMI: 43.9 Code : 19661-4 Heart Rate 1 : 87 bpm Height: 5'6" SpO2: 97% Weight: 272 lbs 10/25/2017 Blood Pressure 1: 124/76 Code : 8480-6 BMI: 42.9 Code : 63842-5 Heart Rate 1 : 94 bpm Height: 5'6" SpO2: 95% Weight: 266 lbs 09/20/2017 Blood Pressure 1: 144/76 Code : 8480-6 BMI: 43.3 Code : 94302-7 Heart Rate 1 : 91 bpm Height: 5'6" SpO2: 98% Weight: 268 lbs 09/05/2017 Blood Pressure 1: 140/78 Code : 8480-6 BMI: 44.7 Code : 08388-7 Heart Rate 1 : 81 bpm Height: 5'6" SpO2: 97% Weight: 277 lbs Functional Status No Functional Status data History of Present Illness Symptom Name Status Result Effective Date Notes medication follow up Additional Comments medication use [...] data Encounters Encounter Performer Location Codes Date 84196 EST. PATIENT, LEVEL III Diagnosis: Other specified hypothyroidism[ICD10: E03.8] Diagnosis: Generalized anxiety disorder[ICD10: F41.1] Diagnosis: Major depressive disorder, single episode, moderate[ICD10: F32.1] Neva Chavarria MD, [facility] CPT-4: 97943 01/23/2018 74880 EST. PATIENT, LEVEL IV Diagnosis: Other acute sinusitis[ICD10: J01.80] Diagnosis: Other allergic rhinitis[ICD10: J30.89] Diagnosis: Essential (primary) hypertension[ICD10: I10] Neva Chavarria MD, [facility] CPT-4: 25641 10/25/2017 20148 EST. PATIENT, LEVEL III Diagnosis: Other fatigue[ICD10: R53.83] Diagnosis: Other malaise[ICD10: R53.81] Diagnosis: Essential (primary) hypertension[ICD10: I10] Diagnosis: Generalized anxiety disorder[ICD10: F41.1] Diagnosis: Major depressive disorder, single episode, moderate[ICD10: F32.1] [facility] CPT-4: 50645 09/20/2017 OFFICE VISIT, NEW - LEVEL 3 Diagnosis: Essential (primary) hypertension[ICD10: I10] Diagnosis: Generalized anxiety disorder[ICD10: F41.1] Diagnosis: Major depressive disorder, single episode, moderate[ICD10: F32.1] [facility] CPT-4: 43191 09/05/2017 Plan of Care Planned Activity Notes Codes Status Date Appointment: Neva Brito [facility]Ptel: [phone] [id number] (30 min) Complex 02/28/2018 Visit Plan: Anxiety - the patient [...] of control. 01/23/2018 Appointment: Neva Brito WPtel: [address] [place], [place] [phone] (15 min) Moderate 01/23/2018 Patient Education: Patient [...] at home. 10/25/2017 Appointment: Neva Brito WPtel: [phone] [facility] [id number] (15 min) Moderate 10/25/2017 Patient Education: Patient [...] or concerns. 09/20/2017 Appointment: Neva Brito WPtel: [phone] [facility] [id number] (15 min) Moderate 09/20/2017 Patient Education: Patient [...] medications. 09/05/2017 Appointment: Neva Brito WPtel: [phone] [facility] [id number] [place] New Patient 09/05/2017 Patient Education: Patient Medication Summary Completed 09/05/2017 Instructions Comment . Hypertension - uncontrolled - the patient's [...] based on previous levels of control. . Hypertension - uncontrolled - the patient's [...]
--- OUTSIDE RECORDS SUMMARY | 2018-07-07 09:44 | XMS REPORT | CCD ---
Author Author [facility] Address [address] [place] [address] Phone Care Team Providers Care Almond Roaster Name Role Phone PP Unavailable CCM Unavailable Summary Purpose Interface Exchange Insurance Providers Payer name Policy type / Coverage type Covered democrat ID Effective Begin Date Effective End Date [facility] [id number] 2017 Unknown Family history Mother Diagnosis Age [...] Fill Instructions naproxen 500 mg tablet RxNorm: 367632 1 Tablet(s) PO BID 201705/12/2018 Active Xanax 0.5 mg tablet RxNorm: 316805 1 Tablet(s) PO BID as needed 05/08/2018 08/05/2018 Active baclofen 10 mg tablet RxNorm: 733974 1 Tablet(s) PO TID as needed muscle spasms 05/08/2018 05/12/2018 Active Prozac 20 mg capsule RxNorm: 885205 2 CAPSULE(S) PO DAILY 04/1708/14/2018 Active lisinopril 20 mg tablet RxNorm: 575962 1 TABLET(S) PO DAILY 02/201810/13/2018 Active Prozac 20 mg capsule RxNorm: 140290 3 Capsule(s) PO daily 03/0204/30/2018 Inactive fluoxetine 60 mg tablet RxNorm: 4674866 1 Tablet(s) PO daily 03/01/2018 Inactive Xanax 0.5 mg tablet RxNorm: 409924 1 Tablet(s) PO BID as needed 02/27/2018 05/07/2018 Inactive Prozac 20 mg capsule RxNorm: 644357 2 Capsule(s) PO daily 02/2003/01/2018 Inactive Wellbutrin XL 150 mg 24 hr tablet, extended release RxNorm: 183618 1 Tablet(s) PO UD 01/23/2018 No Stop Date Active Prozac 20 mg capsule RxNorm: 450626 1 Capsule(s) PO daily x 1 week then 2 pills daily 01/23/2018 02/19/2018 Inactive Xanax 0.5 mg tablet RxNorm: 838544 1 Tablet(s) PO BID 201702/26/2018 Inactive metoprolol succinate ER 25 mg tablet,extended release 24 hr RxNorm: 292849 1 Tablet(s) PO daily 10/31/2017 11/29/2017 Inactive ceftriaxone 500 mg solution for injection RxNorm: 3538508 Inj 10/25/2017 10/25/2017 Inactive Keflex 500 mg capsule RxNorm: 369327 1 Capsule(s) PO TID 201710/31/2017 Inactive Diflucan 150 mg tablet RxNorm: 277674 1 Tablet(s) PO daily 10/31/2017 Inactive Kenalog 40 mg/mL suspension for injection RxNorm: 1791970 Milliliter(s) Inj 10/25/2017 10/25/2017 Inactive Xanax 0.5 mg tablet RxNorm: 755697 1 Tablet(s) PO BID 201712/18/2017 Inactive lisinopril 20 mg tablet RxNorm: 017774 1 TABLET(S) PO DAILY 06/201804/16/2018 Inactive Xanax 0.5 mg tablet RxNorm: 433542 1 Tablet(s) PO BID 201710/18/2017 Inactive lisinopril 20 mg tablet RxNorm: 480209 1 Tablet(s) PO daily 10/19/2017 Inactive Xanax 0.25 mg tablet RxNorm: 942127 1 Tablet(s) PO BID as needed 09/05/2017 09/13/2017 Inactive lisinopril 10 mg tablet RxNorm: 759576 1 Tablet(s) PO daily 09/13/2017 Inactive bupropion HCl XL 300 mg 24 hr tablet, extended release RxNorm: 449447 1 Tablet(s) PO daily 09/05/2017 02/15/2018 Inactive spironolactone 100 mg tablet RxNorm: 705257 1 Tablet(s) PO daily No Start Date Active magnesium oral RxNorm : 6574 oral No Start Date Active Vitamin D3 5,000 unit tablet RxNorm: 774321 1 Tablet(s) PO daily No Start Date Active allopurinol 300 mg tablet RxNorm: 878353 1 Tablet(s) PO daily No Start Date Active liothyronine 5 mcg tablet RxNorm: 914106 1 Tablet(s) PO QAM and 1 early afternoon No Start Date Active metformin 1,000 mg tablet RxNorm: 767303 1 Tablet(s) PO daily No Start Date Active Nature Thyroid 60 mg tablet RxNorm: 591876 1 Tablet(s) PO QAM and 1 early afternoon No Start Date Active Medication Administered Medication Codes Instructions Start Date Status ceftriaxone 500 mg solution for injection RxNorm: 0857764 10/25/2017 No longer Active Kenalog 40 mg/mL suspension for injection RxNorm: 0191479 Milliliter 10/25/2017 No longer Active Immunizations No [...] Ord42 TT3 2.60 ng/ml 02/28/2018 Free T4 Vuw312 FREE T4 0.85 ng/dL 02/28/2018 Tsh Ord6 TSH (3rd IS) 1.89 uIU/mL 02/28/2018 %Hba1C Dev676 % HbA1c 61976-0 5.7 % 02/28/2018 %Hba1C Ibg990 Gluc Ave 117 mg/dL 02/28/2018 [place]es Disease Total Antibodies With Western Blot Reflex 979642 B. BURGDORFERI, IGG/IGM 0.139 09/26/2017 [place] Disease Total Antibodies With Western Blot Reflex [id number] 09/26/2017 [place] Spotted Fever Igg/Igm 033400 [place] SPOTTED FEVER IGM EIA . 09/24/2017 [place] Spotted Fever Igg/Igm 436839 RMSF, IGM 0.28 index 09/24/2017 [place] Spotted Fever Igg/Igm 986945 [place] SPOTTED FEVER IGG EIA FLEX . 09/24/2017 [place] Spotted Fever Igg/Igm 951813 RMSF, IGG SCREEN-FLEX Negative 09/24/2017 Ehrlichia Chaffeensis Antibody Igm 099305 EHRLICHIA CHAFFEENSIS IGM < 1:16 09/22/2017 Ehrlichia Chaffeensis Antibody Igg 676457 EHRLICHIA CHAFFEENSIS IGG <1:64 09/22/2017 Sabiha 594623 SABIHA (BLAIR) SCREEN NONE DETECTED 09/21/2017 Ra Factor Bvg989 RA FACTOR <10 IU/ml 09/20/2017 Free T4 Psc149 FREE T4 0.65 ng/dL 09/20/2017 Sed Rate [...] Code : 8480-6 BMI: 44.7 Code : 99708-3 Heart Rate 1 : 87 bpm Height: 5'6" SpO2: 98% Weight: 277 lbs 02/28/2018 Blood Pressure 1: 130/72 Code : 8480-6 BMI: 43.9 Code : 07971-9 Heart Rate 1 : 65 bpm Height: 5'6" SpO2: 97% Weight: 272 lbs 01/23/2018 Blood Pressure 1: 122/60 Code : 8480-6 BMI: 43.9 Code : 06742-2 Heart Rate 1 : 87 bpm Height: 5'6" SpO2: 97% Weight: 272 lbs 10/25/2017 Blood Pressure 1: 124/76 Code : 8480-6 BMI: 42.9 Code : 88764-4 Heart Rate 1 : 94 bpm Height: 5'6" SpO2: 95% Weight: 266 lbs 09/20/2017 Blood Pressure 1: 144/76 Code : 8480-6 BMI: 43.3 Code : 98899-5 Heart Rate 1 : 91 bpm Height: 5'6" SpO2: 98% Weight: 268 lbs 09/05/2017 Blood Pressure 1: 140/78 Code : 8480-6 BMI: 44.7 Code : 33081-1 Heart Rate 1 : 81 bpm Height: [...] data Encounters Encounter Performer Location Codes Date 39531 EST. PATIENT, LEVEL IV Diagnosis: Dysuria[ICD10: R30.0] Diagnosis: Generalized anxiety disorder[ICD10: F41.1] Diagnosis: Major depressive disorder, single episode, moderate[ICD10: F32.1] Diagnosis: Polycystic ovarian syndrome[ICD10: E28.2] Diagnosis: Low back pain[ICD10: M54.5] [facility] CPT-4 : 24251 05/08/2018 78420 EST. PATIENT, LEVEL IV Diagnosis: Other specified hypothyroidism[ICD10: E03.8] Diagnosis: Generalized anxiety disorder[ICD10: F41.1] Diagnosis: Major depressive disorder, single episode, moderate[ICD10: F32.1] Diagnosis: Essential (primary) hypertension[ICD10: I10] Diagnosis: Other malaise[ICD10: R53.81] Diagnosis: Other fatigue[ICD10: R53.83] [facility] CPT-4 : 08402 02/28/2018 81577 EST. PATIENT, LEVEL III Diagnosis: Other specified hypothyroidism[ICD10: E03.8] Diagnosis: Generalized anxiety disorder[ICD10: F41.1] Diagnosis: Major depressive disorder, single episode, moderate[ICD10: F32.1] Neva Chavarria MD, [facility] CPT-4: 06524 01/23/2018 79941 EST. PATIENT, LEVEL IV Diagnosis: Other acute sinusitis[ICD10: J01.80] Diagnosis: Other allergic rhinitis[ICD10: J30.89] Diagnosis: Essential (primary) hypertension[ICD10: I10] Neva Chavarria MD, [facility] CPT-4: 03017 10/25/2017 01268 EST. PATIENT, LEVEL III Diagnosis: Other fatigue[ICD10: R53.83] Diagnosis: Other malaise[ICD10: R53.81] Diagnosis: Essential (primary) hypertension[ICD10: I10] Diagnosis: Generalized anxiety disorder[ICD10: F41.1] Diagnosis: Major depressive disorder, single episode, moderate[ICD10: F32.1] Neva Chavarria MD, [facility] CPT-4: 64117 09/20/2017 OFFICE VISIT, NEW - LEVEL 3 Diagnosis: Essential (primary) hypertension[ICD10: I10] Diagnosis: Generalized anxiety disorder[ICD10: F41.1] Diagnosis: Major depressive disorder, single episode, moderate[ICD10: F32.1] Neva Chavarria MD, [facility] CPT-4: 54852 09/05/2017 Plan of Care Planned Activity Notes Codes Status Date Care Plan: Referral Order SNOMED-CT : [id number] Pending 05/09/2018 Visit Plan: PCOS - will [...] this patient. 05/08/2018 [phone] [facility] ([facility] Moderate 05/08/2018 Patient [...] as indicated 02/28/2018 [phone] (30 min) Complex 02/28/2018 Patient [...] control. 01/23/2018 [phone] [facility] (15 min) Moderate 01/23/2018 Patient [...] concerns. 09/20/2017 [facility] [phone] [facility] (15 min) Moderate 09/20/2017 Patient [...] medications. 09/05/2017 [phone] [facility] New Patient 09/05/2017 Patient Education: Patient Medication Summary Completed 09/05/2017 Ref[facility]: [facility] [phone] [facility] Referral Initiated Instructions Comment Refer to OB [...]
[2018-07-07] MEDS ORDERED: ceFAZolin INJECTION 1,000 MG in NS (IVPB) 50 ML IV ONE (09:45)
--- OUTSIDE RECORDS SUMMARY | 2018-07-07 09:45 | XMS REPORT | CCD ---
Author Author Neva Brito MD, [facility] Address [address] [place] [address] Phone Care Team Providers Care Kaitara Taraka Name Role Phone PP Unavailable CCM Unavailable Summary Purpose Interface Exchange Insurance Providers Payer name Policy type / Coverage type Covered libertarian ID Effective Begin Date Effective End Date [facility] [id number] 2017 Unknown Family history Mother Diagnosis Age [...] Codes Condition Status Onset Date Resolved Date Hypothryroidism Unknown Active 01/23/2018 Unknown Generalized anxiety disorder ICD-9: 300.00 ICD-10: F41.1 Active 09/05/2017 Unknown Hypothyroidism, unspecified ICD-9: 244.9 ICD-10: E03.9 Active 01/23/2018 Unknown Major depressive disorder, single episode, moderate ICD-9: 296.22 ICD-10: F32.1 Active 09/05/2017 Unknown Essential (primary) hypertension ICD-9: 401.1 ICD-10: I10 Active 09/05/2017 Unknown Other acute sinusitis ICD-9: 461.8 ICD-10: J01.80 Active 10/25/2017 Unknown Other allergic rhinitis ICD-9: 477.8 ICD-10: J30.89 Active 10/25/2017 Unknown Other fatigue ICD-9: 780.79 ICD-10: R53.83 Active 09/20/2017 Unknown Other malaise ICD-9: 780.79 ICD-10: R53.81 Active 09/20/2017 Unknown Problems Condition Codes Effective Dates Condition Status Hypothryroidism Unknown 01/23/2018 Active Generalized anxiety disorder ICD-9: 300.00 ICD-10: F41.1 09/05/2017 Active Hypothyroidism, unspecified ICD-9: 244.9 ICD-10: E03.9 01/23/2018 Active Major depressive disorder, single episode, moderate ICD-9: 296.22 ICD-10: F32.1 09/05/2017 Active Essential (primary) hypertension ICD-9: 401.1 ICD-10: I10 09/05/2017 Active Other acute sinusitis ICD-9: 461.8 ICD-10: J01.80 10/25/2017 Active Other allergic rhinitis ICD-9: 477.8 ICD-10: J30.89 10/25/2017 Active Other fatigue ICD-9: 780.79 ICD-10: R53.83 09/20/2017 Active Other malaise ICD-9: 780.79 ICD-10: R53.81 09/20/2017 Active Medications Medication Codes Instructions Start Date Stop Date Status Fill Instructions Prozac 20 mg capsule RxNorm: 339919 2 Capsule(s) PO daily 02/2004/20/2018 Active Wellbutrin XL 150 mg 24 hr tablet, extended release RxNorm: 512541 1 Tablet(s) PO UD 01/23/2018 No Stop Date Active Prozac 20 mg capsule RxNorm: 032068 1 Capsule(s) PO daily x 1 week then 2 pills daily 01/23/2018 02/19/2018 Inactive Xanax 0.5 mg tablet RxNorm: 604475 1 Tablet(s) PO BID 201702/26/2018 Inactive metoprolol succinate ER 25 mg tablet,extended release 24 hr RxNorm: 218812 1 Tablet(s) PO daily 10/31/2017 11/29/2017 Inactive ceftriaxone 500 mg solution for injection RxNorm: 0089077 Inj 10/25/2017 10/25/2017 Inactive Keflex 500 mg capsule RxNorm: 097089 1 Capsule(s) PO TID 201710/31/2017 Inactive Diflucan 150 mg tablet RxNorm: 674446 1 Tablet(s) PO daily 10/31/2017 Inactive Kenalog 40 mg/mL suspension for injection RxNorm: 0548119 Milliliter(s) Inj 10/25/2017 10/25/2017 Inactive Xanax 0.5 mg tablet RxNorm: 943095 1 Tablet(s) PO BID 201712/18/2017 Inactive lisinopril 20 mg tablet RxNorm: 034966 1 TABLET(S) PO DAILY 06/201804/17/2018 Active Xanax 0.5 mg tablet RxNorm: 759800 1 Tablet(s) PO BID 201710/18/2017 Inactive lisinopril 20 mg tablet RxNorm: 730799 1 Tablet(s) PO daily 10/19/2017 Inactive bupropion HCl XL 300 mg 24 hr tablet, extended release RxNorm: 837542 1 Tablet(s) PO daily 09/05/2017 No Stop Date Active Xanax 0.25 mg tablet RxNorm: 486257 1 Tablet(s) PO BID as needed 09/05/2017 09/13/2017 Inactive lisinopril 10 mg tablet RxNorm: 216032 1 Tablet(s) PO daily 09/13/2017 Inactive spironolactone 100 mg tablet RxNorm: 597229 1 Tablet(s) PO daily No Start Date Active magnesium oral RxNorm : 6574 oral No Start Date Active Vitamin D3 5,000 unit tablet RxNorm: 247631 1 Tablet(s) PO daily No Start Date Active allopurinol 300 mg tablet RxNorm: 645439 1 Tablet(s) PO daily No Start Date Active liothyronine 5 mcg tablet RxNorm: 540339 1 Tablet(s) PO QAM and 1 early afternoon No Start Date Active metformin 1,000 mg tablet RxNorm: 827498 1 Tablet(s) PO daily No Start Date Active Nature Thyroid 60 mg tablet RxNorm: 399203 1 Tablet(s) PO QAM and 1 early afternoon No Start Date Active Medication Administered Medication Codes Instructions Start Date Status ceftriaxone 500 mg solution for injection RxNorm: 0347453 10/25/2017 No longer Active Kenalog 40 mg/mL suspension for injection RxNorm: 3723818 Milliliter 10/25/2017 No longer Active Immunizations No [...] Disease Total Antibodies With Western Blot Reflex 627024 B. BURGDORFERI, IGG/IGM 0.139 09/26/2017 [place]ymes Disease Total Antibodies With Western Blot Reflex [id number] 09/26/2017 [place] Spotted Fever Igg/Igm 487156 [place] SPOTTED FEVER IGM EIA . 09/24/2017 [place] Spotted Fever Igg/Igm 355720 RMSF, IGM 0.28 index 09/24/2017 [place] Spotted Fever Igg/Igm 854919 [place] SPOTTED FEVER IGG EIA FLEX . 09/24/2017 [place] Spotted Fever Igg/Igm 000920 RMSF, IGG SCREEN-FLEX Negative 09/24/2017 Ehrlichia Chaffeensis Antibody Igm 809416 EHRLICHIA CHAFFEENSIS IGM < 1:16 09/22/2017 Ehrlichia Chaffeensis Antibody Igg 661923 EHRLICHIA CHAFFEENSIS IGG <1:64 09/22/2017 Sabiha 633583 SABIHA (BLAIR) SCREEN NONE DETECTED 09/21/2017 Ra Factor Zet592 RA FACTOR <10 IU/ml 09/20/2017 Free T4 Ahj895 FREE T4 0.65 ng/dL 09/20/2017 Sed Rate [...] eye contact 09/05/2017 None Procedures Procedure Codes TRIAMCINOLONE ACET INJ NOS CPT-4: J3301 10/25/2017 ROCEPHIN, PER 250 MG CPT-4: J0696 10/25/2017 Vital Signs Date Vital 01/23/2018 Blood Pressure 1: 122/60 Code : 8480-6 BMI: 43.9 Code : 70465-5 Heart Rate 1 : 87 bpm Height: 5'6" SpO2: 97% Weight: 272 lbs 10/25/2017 Blood Pressure 1: 124/76 Code : 8480-6 BMI: 42.9 Code : 20707-0 Heart Rate 1 : 94 bpm Height: 5'6" SpO2: 95% Weight: 266 lbs 09/20/2017 Blood Pressure 1: 144/76 Code : 8480-6 BMI: 43.3 Code : 11776-9 Heart Rate 1 : 91 bpm Height: 5'6" SpO2: 98% Weight: 268 lbs 09/05/2017 Blood Pressure 1: 140/78 Code : 8480-6 BMI: 44.7 Code : 18877-6 Heart Rate 1 : 81 bpm Height: [...] data Encounters Encounter Performer Location Codes Date 41817 EST. PATIENT, LEVEL III Diagnosis: Other specified hypothyroidism[ICD10: E03.8] Diagnosis: Generalized anxiety disorder[ICD10: F41.1] Diagnosis: Major depressive disorder, single episode, moderate[ICD10: F32.1] Neva Chavarria MD, [facility] CPT-4: 58902 01/23/2018 60666 EST. PATIENT, LEVEL IV Diagnosis: Other acute sinusitis[ICD10: J01.80] Diagnosis: Other allergic rhinitis[ICD10: J30.89] Diagnosis: Essential (primary) hypertension[ICD10: I10] Neva Chavarria MD, [facility] CPT-4: 11186 10/25/2017 19594 EST. PATIENT, LEVEL III Diagnosis: Other fatigue[ICD10: R53.83] Diagnosis: Other malaise[ICD10: R53.81] Diagnosis: Essential (primary) hypertension[ICD10: I10] Diagnosis: Generalized anxiety disorder[ICD10: F41.1] Diagnosis: Major depressive disorder, single episode, moderate[ICD10: F32.1] Neva Chavarria MD, [facility] CPT-4: 19880 09/20/2017 OFFICE VISIT, NEW - LEVEL 3 Diagnosis: Essential (primary) hypertension[ICD10: I10] Diagnosis: Generalized anxiety disorder[ICD10: F41.1] Diagnosis: Major depressive disorder, single episode, moderate[ICD10: F32.1] Neva Chavarria MD, [facility] CPT-4: 99798 09/05/2017 Plan of Care Planned Activity Notes Codes Status Date Visit Plan: Anxiety - the patient has [...] of control. 01/23/2018 [facility]ment[phone] [facility] [place] (15 min) Moderate 01/23/2018 Patient Education: Patient [...] at home. 10/25/2017 Appointment: [facility] [phone] [facility] (15 min) Moderate 10/25/2017 Patient Education: Patient [...] concerns. 09/20/2017 Appointment: [facility] [phone] [facility] (15 min) Moderate 09/20/2017 Patient Education: Patient [...] medications. 09/05/2017 Appointment: Neva Brito WPtel: [phone] [facility] [place] New Patient 09/05/2017 Patient Education: Patient [...]
--- OUTSIDE RECORDS SUMMARY | 2018-07-07 09:45 | XMS REPORT | CCD ---
Author Author Neva Brito MD, [facility] Address [address] [place] [address] Phone Care Team Providers Care University Teacher Name Role Phone PP Unavailable CCM Unavailable Summary Purpose Interface Exchange Insurance Providers Payer name Policy type / Coverage type Covered libertarian ID Effective Begin Date Effective End Date [facility] [id number] 2017 Unknown Family history Mother Diagnosis Age [...] Start Date Stop Date Status Fill Instructions Xanax 0.5 mg tablet RxNorm: 798100 1 Tablet(s) PO BID as needed 02/27/2018 05/27/2018 Active Prozac 20 mg capsule RxNorm: 814622 2 Capsule(s) PO daily 02/2004/20/2018 Active Wellbutrin XL 150 mg 24 hr tablet, extended release RxNorm: 303637 1 Tablet(s) PO UD 01/23/2018 No Stop Date Active Prozac 20 mg capsule RxNorm: 429003 1 Capsule(s) PO daily x 1 week then 2 pills daily 01/23/2018 02/19/2018 Inactive Xanax 0.5 mg tablet RxNorm: 272633 1 Tablet(s) PO BID 201702/26/2018 Inactive metoprolol succinate ER 25 mg tablet,extended release 24 hr RxNorm: 093902 1 Tablet(s) PO daily 10/31/2017 11/29/2017 Inactive ceftriaxone 500 mg solution for injection RxNorm: 4014195 Inj 10/25/2017 10/25/2017 Inactive Keflex 500 mg capsule RxNorm: 937320 1 Capsule(s) PO TID 201710/31/2017 Inactive Diflucan 150 mg tablet RxNorm: 268214 1 Tablet(s) PO daily 10/31/2017 Inactive Kenalog 40 mg/mL suspension for injection RxNorm: 5221439 Milliliter(s) Inj 10/25/2017 10/25/2017 Inactive Xanax 0.5 mg tablet RxNorm: 531664 1 Tablet(s) PO BID 201712/18/2017 Inactive lisinopril 20 mg tablet RxNorm: 436634 1 TABLET(S) PO DAILY 06/201804/17/2018 Active Xanax 0.5 mg tablet RxNorm: 259084 1 Tablet(s) PO BID 201710/18/2017 Inactive lisinopril 20 mg tablet RxNorm: 100329 1 Tablet(s) PO daily 10/19/2017 Inactive bupropion HCl XL 300 mg 24 hr tablet, extended release RxNorm: 423215 1 Tablet(s) PO daily 09/05/2017 No Stop Date Active Xanax 0.25 mg tablet RxNorm: 074814 1 Tablet(s) PO BID as needed 09/05/2017 09/13/2017 Inactive lisinopril 10 mg tablet RxNorm: 655226 1 Tablet(s) PO daily 09/13/2017 Inactive spironolactone 100 mg tablet RxNorm: 925124 1 Tablet(s) PO daily No Start Date Active magnesium oral RxNorm : 6574 oral No Start Date Active Vitamin D3 5,000 unit tablet RxNorm: 897390 1 Tablet(s) PO daily No Start Date Active allopurinol 300 mg tablet RxNorm: 845931 1 Tablet(s) PO daily No Start Date Active liothyronine 5 mcg tablet RxNorm: 665293 1 Tablet(s) PO QAM and 1 early afternoon No Start Date Active metformin 1,000 mg tablet RxNorm: 301406 1 Tablet(s) PO daily No Start Date Active Nature Thyroid 60 mg tablet RxNorm: 297831 1 Tablet(s) PO QAM and 1 early afternoon No Start Date Active Medication Administered Medication Codes Instructions Start Date Status ceftriaxone 500 mg solution for injection RxNorm: 3646986 10/25/2017 No longer Active Kenalog 40 mg/mL suspension for injection RxNorm: 1030401 Milliliter 10/25/2017 No longer Active Immunizations No [...] Disease Total Antibodies With Western Blot Reflex 550690 B. BURGDORFERI, IGG/IGM 0.139 09/26/2017 [place]ymes Disease Total Antibodies With Western Blot Reflex 472193 09/26/2017 [place] Spotted Fever Igg/Igm 175314 [place] SPOTTED FEVER IGM EIA . 09/24/2017 [place] Spotted Fever Igg/Igm 058224 RMSF, IGM 0.28 index 09/24/2017 [place] Spotted Fever Igg/Igm 209970 [place] SPOTTED FEVER IGG EIA FLEX . 09/24/2017 [place] Spotted Fever Igg/Igm 268162 RMSF, IGG SCREEN-FLEX Negative 09/24/2017 Ehrlichia Chaffeensis Antibody Igm 098688 EHRLICHIA CHAFFEENSIS IGM < 1:16 09/22/2017 Ehrlichia Chaffeensis Antibody Igg 116835 EHRLICHIA CHAFFEENSIS IGG <1:64 09/22/2017 Sabiha 341169 SABIHA (BLAIR) SCREEN NONE DETECTED 09/21/2017 Ra Factor Xrd472 RA FACTOR <10 IU/ml 09/20/2017 Free T4 Ksu101 FREE T4 0.65 ng/dL 09/20/2017 Sed Rate [...] Code : 8480-6 BMI: 43.9 Code : 64207-2 Heart Rate 1 : 87 bpm Height: 5'6" SpO2: 97% Weight: 272 lbs 10/25/2017 Blood Pressure 1: 124/76 Code : 8480-6 BMI: 42.9 Code : 38396-4 Heart Rate 1 : 94 bpm Height: 5'6" SpO2: 95% Weight: 266 lbs 09/20/2017 Blood Pressure 1: 144/76 Code : 8480-6 BMI: 43.3 Code : 20450-5 Heart Rate 1 : 91 bpm Height: 5'6" SpO2: 98% Weight: 268 lbs 09/05/2017 Blood Pressure 1: 140/78 Code : 8480-6 BMI: 44.7 Code : 60105-7 Heart Rate 1 : 81 bpm Height: [...] data Encounters Encounter Performer Location Codes Date 99185 EST. PATIENT, LEVEL III Diagnosis: Other specified hypothyroidism[ICD10: E03.8] Diagnosis: Generalized anxiety disorder[ICD10: F41.1] Diagnosis: Major depressive disorder, single episode, moderate[ICD10: F32.1] Neva Chavarria MD, [facility] CPT-4: 24746 01/23/2018 42422 EST. PATIENT, LEVEL IV Diagnosis: Other acute sinusitis[ICD10: J01.80] Diagnosis: Other allergic rhinitis[ICD10: J30.89] Diagnosis: Essential (primary) hypertension[ICD10: I10] Neva Chavarria MD, [facility] CPT-4: 41531 10/25/2017 33729 EST. PATIENT, LEVEL III Diagnosis: Other fatigue[ICD10: R53.83] Diagnosis: Other malaise[ICD10: R53.81] Diagnosis: Essential (primary) hypertension[ICD10: I10] Diagnosis: Generalized anxiety disorder[ICD10: F41.1] Diagnosis: Major depressive disorder, single episode, moderate[ICD10: F32.1] Neva Chavarria MD, [facility] CPT-4: 16688 09/20/2017 OFFICE VISIT, NEW - LEVEL 3 Diagnosis: Essential (primary) hypertension[ICD10: I10] Diagnosis: Generalized anxiety disorder[ICD10: F41.1] Diagnosis: Major depressive disorder, single episode, moderate[ICD10: F32.1] Neva Chavarria MD, [facility] CPT-4: 18189 09/05/2017 Plan of Care Planned Activity Notes [...] control. 01/23/2018 Appointment: [phone] [facility] [place] (15 min) Moderate 01/23/2018 Patient Education: [...] pressure readings at home. 10/25/2017 Appointment: Neva Britotel: [phone] [facility] (15 min) Moderate 10/25/2017 Patient Education: [...] changes, questions, or concerns. 09/20/2017 Appointment: Neva Britotel: [phone] [facility] (15 min) Moderate 09/20/2017 Patient Education: Patient [...] above medications. 09/05/2017 Appointment: Neva Brito WPtel: [facility] [place] New Patient 09/05/2017 Patient Education: Patient [...]
[2018-07-07 10:20] VITALS: BP 143/79
[2018-07-07] MEDS ORDERED: fentaNYL INJECTION 100 MCG/2 ML AMP ONE ×2 (11:01→11:30)
[2018-07-07] MEDS ORDERED: MIDAZOLAM 2 MG/2 ML (VERSED) VIAL ONE (11:01)
[2018-07-07] MEDS ORDERED: ONDANSETRON 4 MG/2 ML (SDV) Z0FRAN ONE (11:01)
[2018-07-07] MEDS ORDERED: SEVOFLURANE (ULTANE) 15 ML INHAL SOLN ONE (11:01)
[2018-07-07] MEDS ORDERED: proPOfol 200 MG/20 ML (DIPRIVAN) VIAL IV ONE (11:01)
[2018-07-07] MEDS ORDERED: LIDOCAINE PF 2% 5 ML (XYLOCAINE) VIAL ONE (11:01)
[2018-07-07] MEDS ORDERED: DEXAMETHASONE 10 MG/ML (DECADRON) 1 ML VIAL ONE (11:01)
--- NOTE | 2018-07-07 11:11 | Progress Note-Pre Operative ---
Pre-Operative Progress Note H&P Reviewed The H&P was reviewed, patient examined and no changes noted. Date Seen by Provider: Jul 07, 2018 Time Seen by Provider: 11:00 Date H&P Reviewed: Jul 07, 2018 Time H&P Reviewed: 10:50 Pre-Operative Diagnosis: menorrhagia EJ SAGE DO Jul 07, 2018 11:11
[2018-07-07] MEDS ORDERED: KETOROLAC 30 MG/ML VIAL ONE (11:39)
[2018-07-07] MEDS ORDERED: KETOROLAC 30 MG/ML VIAL IVP ONE (12:00)
[2018-07-07] MEDS ORDERED: morphine INJ 10 MG/ML 1ML (SYR OR VIAL) IVP ONE (12:00)
[2018-07-07] MEDS ORDERED: HYDROcodone/APAP 5 MG/325 MG (LORTAB) TAB PO PRN (12:00)
[2018-07-07] MEDS ORDERED: ONDANSETRON 4 MG/2 ML (SDV) Z0FRAN IVP PRN (12:00)
--- NOTE | 2018-07-07 12:04 | Operative Report ---
Operative Report Date of Procedure/Surgery Jul 07, 2018 Surgeon (s) EJ SAGE DO Caramel Cutter Machine (s): NA Post-Operative Diagnosis menorrhagia Procedure Performed hysteroscopy, dilation and curettage Novasure endometrial ablation Description of Procedure Anesthesia Type: General Estimated blood loss (mL): minimal Specimen(s) collected/removed endometrial curettings Description of the Procedure With informed consent the patient was taken to the operating room where general anesthesia was found to be adequate. She was prepped and draped in the usual sterile fashion in the dorsolithotomy position. The bladder was drained of clear yellow urine with a straight cath. A bivalved speculum was placed in the vagina and the cervix was grasped with a tenaculum. The cervix was dilated with Tomy dilators. I then inserted a sure Sound. The length was 5.4 cm At this point The hysteroscope was inserted and a hysteroscope was done. There was no abnormal pathology. I removed the scope and a gentle curette was done with a small amount of proliferative tissue that was sent for pathology. I then inserted the NovaSure device and measurements were taken. The width was 2.6 cm. I then did the compliance test by inserting a small puff of CO2 and once this was passed, the device was enabled. Ablation was achieved at 52 seconds with a power of 96. The device halted the procedure once the ablation was completed. The patient tolerated the procedure well. The device and instruments were removed. the patient was awakened and taken to recovery in a stable condition. Sponge, lap and instrument counts were correct times two. Findings of the Procedure Proliferative endometrium, no abnormal findings. Width 2.5 cm Length 5.6 cm Power - 96 Time 52 seconds Allergies and Home Medications Allergies Coded Allergies: gluten (Verified Allergy, Mild, 08/30/17) Home Medications Allopurinol 300 Mg Tablet, 300 MG PO DAILY, (Reported) Alprazolam 0.5 Mg Tablet, 0.5 MG PO BID PRN for ANXIETY, (Reported) Atorvastatin Calcium 10 Mg Tablet, 10 MG PO DAILY Prescribed by: JOSÉ ALCANTAR on 11/23/17 0900 Cholecalciferol (Vitamin D3) 5,000 Unit Capsule, 5,000 UNIT PO DAILY, (Reported) Ibuprofen 200 Mg Tablet, 200 MG PO PRN PRN for PAIN-MILD, (Reported) Liothyronine Sodium 5 Mcg Tablet, 5 MCG PO BID, (Reported) Lisinopril 20 Mg Tablet, 20 MG PO DAILY, (Reported) Metformin HCl 1,000 Mg Tablet, 1,000 MG PO DAILY, (Reported) Metoprolol Succinate 25 Mg Tab.er.24h, 25 MG PO DAILY, (Reported) Sodium Bicarbonate/Sodium Cit 1 Each Tablet.eff, 1 EACH PO PRN PRN for INDIGESTION, (Reported) Spironolactone 100 Mg Tablet, 100 MG PO DAILY, (Reported) Thyroid,Pork 65 Mg Tablet, 65 MG PO BID, (Reported) Vilazodone Hydrochloride 40 Mg Tablet, 40 MG PO DAILY, (Reported) [Iflora] , 2 CAP PO DAILY, (Reported) [Magnesium] , 150 MG PO DAILY, (Reported) [Homer-3 Plus] , 2 CAP PO DAILY, (Reported) [Ultranutrient] , 3 CAP PO DAILY, (Reported) Patient Home Medication List Home Medication List Reviewed: Yes EJ SAGE DO Jul 07, 2018 12:04
[2018-07-07] MEDS ORDERED: IBUP-1780 PO (12:07)
[2018-07-07] MEDS ORDERED: ACHD5005 PO (12:08)
--- NOTE | 2018-07-07 12:10 | Discharge Inst-Women's Service ---
Discharge Inst-Women's Serv Depart Medication/Instructions New, Converted or Re-Newed RX: RX on Chart Instructions expect to have light bleeding/spotting for up to two weeks at 7-14 days may notice an increase in vaginal discharge, this will only last a few days Final Diagnosis menorrhagia Consults/Follow Up Additional Follow Up: Yes (1-[address] Sage) Activity Activity: Activity as Tolerated Driving Instructions: No Driving for 24 Hours NO SMOKING: NO SMOKING Nothing Inside Vagina: No Douching, No [place], No Tampons Diet Discharge Diet: No Restrictions Symptoms to Report to : Bleeding Excessive, Pain Increased, Fever Over 101 Degrees F, Vaginal Bleeding Increase, Vaginal Discharge Foul For Any Problems or Questions: Contact Your Physician EJ SGAE DO Jul 07, 2018 12:10
[2018-07-07 12:50] VITALS: BP 133/85
[2018-07-07 13:20] VITALS: BP 136/72
[2018-07-07 13:50] VITALS: BP 149/78
--- NOTE | 2018-07-07 14:25 | Anesthesia-General Post-Op ---
General Patient Condition Mental Status/LOC: Same as Preop Cardiovascular: Satisfactory Nausea/Vomiting: Absent Respiratory: Satisfactory Pain: Controlled Complications: Absent Post Op Complications Complications None Follow Up Care/Instructions Patient Instructions None needed. Anesthesia/Patient Condition Patient Condition Patient is doing well, no complaints, stable vital signs, no apparent adverse anesthesia problems. No complications reported per nursing. D/C home per [facility] Criteria: Yes MARIAM BURK CRNA Jul 07, 2018 14:25
[2018-07-07 14:30] VITALS: BP 149/78
[2018-07-07] MEDS ORDERED: IBUPROFEN 800 MG (MOTRIN) TAB PO SCH (18:00)
== END 2018-07-07 14:30 | disposition home or self-care (01) ==
LOC: SDC 09:29
PROVIDERS: ATTEND Obstetrics & Gynecology
DX: N92.0 Excessive and frequent menstruation with regular cycle (principal); I10 Essential (primary) hypertension; G47.33 Obstructive sleep apnea (adult) (pediatric); E78.5 Hyperlipidemia, unspecified; E03.9 Hypothyroidism, unspecified; E28.2 Polycystic ovarian syndrome; E66.01 Morbid (severe) obesity due to excess calories; Z68.42 Body mass index [BMI] 45.0-49.9, adult; Z87.891 Personal history of nicotine dependence; Z79.84 Long term (current) use of oral hypoglycemic drugs; Z79.899 Other long term (current) drug therapy
CPT/HCPCS: 84703; 87081; 94664

== ENCOUNTER → 2018-11-20 | Outpatient (RCR) | payer BC ==
[~2018-11-20] MED LIST changes: +ACHD5005 PO
== END | disposition home or self-care (01) ==
PROVIDERS: ATTEND Nurse Practitioner Family
DX: M54.5 Low back pain (principal)

== ENCOUNTER → 2019-02-20 | Outpatient (RCR) | payer BC ==
[~2019-02-20] MED LIST changes: +LIOT5TAB PO; -LIOT5TAB3 PO
== END | disposition home or self-care (01) ==
PROVIDERS: ATTEND Nurse Practitioner Family
DX: M51.27 Other intervertebral disc displacement, lumbosacral region (principal)

== ENCOUNTER → 2019-05-23 | Outpatient (RCR) | payer BC | END | disposition home or self-care (01) | PROVIDERS: ATTEND Nurse Practitioner Family | DX: M51.27 Other intervertebral disc displacement, lumbosacral region (principal) ==

== ENCOUNTER → 2019-07-02 | Outpatient (CLI) | payer BC ==
--- NOTE | 2019-07-02 15:10 | Diagnostic Imaging Report ---
INDICATION: COUGH COMPARISON: 11/23/2017 FINDINGS: Frontal and lateral views of the chest demonstrate normal heart size and pulmonary vascularity. Evaluation of the lung keating demonstrates no focal consolidation, large effusion, nor pneumothorax. There is a 1.2 cm nodular opacity projecting over the mid thoracic intervertebral disc space only well visualized on the lateral view. The visualized osseous structures show no acute abnormalities. IMPRESSION: 1. No evidence of failure or focal infiltrate. 2. Nodular opacity projecting over the mid thoracic intervertebral disc space only well visualized on the lateral view. This could be a prominent lateral osteophyte formation or calcified granuloma. Correlation with noncontrast CT chest however is recommended to exclude soft tissue nodule. Dictated by: Dictated on workstation # [id number]
== END ==
LOC: RAD 13:55
PROVIDERS: ATTEND Nurse Practitioner Family
DX: R05 Cough (principal)
CPT/HCPCS: 71046

== ENCOUNTER → 2019-07-09 | Outpatient (CLI) | payer BC ==
--- NOTE | 2019-07-09 13:46 | Diagnostic Imaging Report ---
PROCEDURE: CT chest without contrast. TECHNIQUE: Multiple contiguous axial images were obtained through the chest without the use of intravenous contrast. Auto Exposure Controls were utilized during the CT exam to meet ALARA standards for radiation dose reduction. INDICATION: Lung nodule. FINDINGS: There is a 1 cm calcified granuloma along the medial aspect of left lower lobe. This corresponds to the finding on plain film radiographs. There are no other discrete pulmonary nodules with masses or infiltrates. There is no pleural or pericardial fluid. There is no pneumothorax. Heart size is normal. There are some calcified lymph nodes in the left hilum. There appears to be some fatty infiltration of the liver. There are mild degenerative changes in the spine. IMPRESSION: Benign calcified granuloma in the medial aspect of left lower lobe as well as some calcified nodes in the left hilum. Fatty infiltration of liver. No other acute abnormality in the chest. Dictated by: Dictated on workstation # [id number]
== END ==
LOC: RAD 12:13
PROVIDERS: ATTEND Nurse Practitioner Family
DX: J84.10 Pulmonary fibrosis, unspecified (principal); K76.0 Fatty (change of) liver, not elsewhere classified
CPT/HCPCS: 71250

== ENCOUNTER 2019-07-12 12:06 | Outpatient (CLI) | payer BC ==
[~2019-07-12] VITALS: Ht 167 cm; Wt 133.1 kg
[2019-07-12] MEDS ORDERED: NS IV 1000 ML 1,000 ML IV SCH (12:30)
[2019-07-12] MEDS ORDERED: PROMETHAZINE INJ 25 MG/ML (PHENERGAN) AMP IV PRN (12:30)
[2019-07-12 12:34] LABS: BILIRUBIN,URINE NEGATIVE (NEGATIVE); CLARITY,URINE CLEAR; COLOR,URINE YELLOW; GLUCOSE, URINE (UA) NEGATIVE (NEGATIVE); KETONES,URINE 1+ (NEGATIVE); LEUKOCYTE ESTERASE ,URINE NEGATIVE (NEGATIVE); NITRITE,URINE NEGATIVE (NEGATIVE); PROTEIN,URINE 3+ (NEGATIVE)
[2019-07-12 12:40] VITALS: BP 131/88
[2019-07-12] MEDS: ONDANSETRON 4 MG/2 ML (SDV) Z0FRAN IV PRN ×2 (12:40→13:13)
[2019-07-12 12:48] LABS: HEMOGLOBIN 15.2 G/DL (11.5-16.0); MEAN PLATELET VOLUME 8.3 FL (7.4-10.4); RED CELL DISTRIBUTION WIDTH 15.8 % (10.0-14.5); WHITE BLOOD COUNT 20.6 10^3/uL (4.3-11.0)
[2019-07-12 12:54] LABS: BACTERIA,URINE TRACE /HPF; RBC,URINE 0-2 /HPF; WBC,URINE 0-2 /HPF
[2019-07-12 12:55] LABS: AMORPHOUS SEDIMENT,UR MOD AMOR URATES /LPF
[2019-07-12 13:13] LABS: ALANINE AMINOTRANSFERASE 69 U/L (0-55); ALBUMIN 4.9 GM/DL (3.2-4.5); ALKALINE PHOSPHATASE 109 U/L (40-136); BILIRUBIN,TOTAL 0.7 MG/DL (0.1-1.0); BUN/CREATININE RATIO 18; CALCIUM 9.9 MG/DL (8.5-10.1); CARBON DIOXIDE 21 MMOL/L (21-32); CHLORIDE 95 MMOL/L (98-107); GFR ESTIMATED 60; GLUCOSE 112 MG/DL (70-105); POTASSIUM 4.1 MMOL/L (3.6-5.0); SODIUM 132 MMOL/L (135-145); TOTAL PROTEIN 9.1 GM/DL (6.4-8.2)
== END 2019-07-12 13:40 | disposition home or self-care (01) ==
LOC: SDC 12:06
PROVIDERS: ATTEND Nurse Practitioner Family
DX: E86.0 Dehydration (principal); R11.2 Nausea with vomiting, unspecified
CPT/HCPCS: 36415; 80053; 81000; 85027; 87088; 96360; 96374; 96376

== ENCOUNTER → 2019-07-13 | Outpatient (CLI) | payer BC ==
[~2019-07-13] MED LIST changes: +HOLD METFORMIN - RECEIVED CONTRAST 20 ML VIAL IV SCH; +IOHEXOL 350 MG/ML 100 ML (OMNIPAQUE 350) VIAL IV ONE; +NS 100 ML (IVPB) BAG IV ONE
--- NOTE | 2019-07-13 10:08 | Diagnostic Imaging Report ---
PROCEDURE: CT abdomen and pelvis with contrast. TECHNIQUE: Multiple contiguous axial images were obtained through the abdomen and pelvis after administration of intravenous contrast. Auto Exposure Controls were utilized during the CT exam to meet ALARA standards for radiation dose reduction. DATE: July 13, 2019. COMPARISON: None. INDICATION: 44-year-old female, abdominal pain and fever. FINDINGS: The visualized portions of the lung bases are clear. The heart is not enlarged. There is no pericardial effusion. There is diffuse fatty infiltration of the liver. The outer liver contours are not abnormally nodular. There is no identified focal liver lesion. The main, right, left portal veins are patent. The gallbladder is unremarkable. There is no intrahepatic or extrahepatic bile duct dilation. The main pancreatic duct is not abnormally dilated. Unremarkable appearance of the pancreatic parenchyma. The spleen is normal in size. The adrenal glands are unremarkable. There is a 4 mm low-attenuation lesion of the right kidney on delayed axial image 36 too small to characterize. The urinary collecting systems are not distended. There is no identified renal or ureteral stone. The urinary bladder is collapsed and not well evaluated. The uterus and adnexa are grossly unremarkable in appearance on limited CT evaluation. The intestinal tract is not distended. There is no evidence of acute appendicitis. The appendix is well seen. There is no free intraperitoneal air. There is no drainable fluid collection. There is no sizable volume free pelvic fluid. There is a retroaortic left renal vein. There is no identified abnormally enlarged lymph node in the abdomen or pelvis which meets CT size criteria for adenopathy. There is a probable accessory splenule on axial image 16. There is a small fat-containing paraumbilical hernia. There is no identified acute bony abnormality. IMPRESSION: CT ABDOMEN AND PELVIS. 1. No identified acute abnormality in the abdomen or pelvis. 2. Diffuse fatty infiltration of the liver. Dictated by: Dictated on workstation # [id number]
== END ==
LOC: RAD 09:21
PROVIDERS: ATTEND Nurse Practitioner Family
DX: K76.0 Fatty (change of) liver, not elsewhere classified (principal); D72.829 Elevated white blood cell count, unspecified
CPT/HCPCS: 74177

== ENCOUNTER 2019-08-31 15:46 | Outpatient (RCR) | payer BC ==
[~2019-08-31 15:46] MED LIST changes: -BUPR300T51 PO; +BUPR300T98 PO; -HOLD METFORMIN - RECEIVED CONTRAST 20 ML VIAL IV SCH; -IBUP-2055 PO; +IBUP-2473 PO; -IOHEXOL 350 MG/ML 100 ML (OMNIPAQUE 350) VIAL IV ONE; -LIOT5TAB PO; +LIOT5TAB10 PO; -NS 100 ML (IVPB) BAG IV ONE
== END 2019-09-03 | disposition home or self-care (01) ==
PROVIDERS: ATTEND Nurse Practitioner Family
DX: M51.27 Other intervertebral disc displacement, lumbosacral region (principal); I10 Essential (primary) hypertension

== ENCOUNTER 2019-12-10 14:44 | Outpatient (RCR) | payer BC | END 2019-12-12 | disposition home or self-care (01) | PROVIDERS: ATTEND Nurse Practitioner Family | DX: M51.27 Other intervertebral disc displacement, lumbosacral region (principal); I10 Essential (primary) hypertension; K21.9 Gastro-esophageal reflux disease without esophagitis ==

== ENCOUNTER 2020-04-25 13:44 | Outpatient (RCR) | payer BC | END 2020-05-28 | disposition home or self-care (01) | PROVIDERS: ATTEND Nurse Practitioner Family | DX: M51.27 Other intervertebral disc displacement, lumbosacral region (principal); I10 Essential (primary) hypertension; K21.9 Gastro-esophageal reflux disease without esophagitis ==

== ENCOUNTER 2020-07-09 14:31 | Outpatient (RCR) | payer BC | END 2020-08-01 10:55 | disposition home or self-care (01) | PROVIDERS: ATTEND Nurse Practitioner Family | DX: M51.27 Other intervertebral disc displacement, lumbosacral region (principal); I10 Essential (primary) hypertension ==

== ENCOUNTER → 2020-07-18 | Outpatient (CLI) | payer OTHER ==
--- NOTE | 2020-07-18 13:01 | Diagnostic Imaging Report ---
INDICATION: Fall with neck pain. TIME OF EXAM: 11:01 a.m. Three views of the cervical spine were obtained. There is straightening of the normal cervical lordotic curvature. Minimal retrolisthesis C4 on C5 is noted. There is degenerative disc disease at C4-C5 and C5-C6 levels with disc space narrowing and marginal spurring. Prevertebral tissues are normal. Odontoid is intact. No fractures are seen. IMPRESSION: Cervical spondylosis. No acute bony abnormality is detected. Dictated by: Dictated on workstation # [id number]
--- NOTE | 2020-07-18 13:02 | Diagnostic Imaging Report ---
INDICATION: Back injury, fall. TIME OF EXAM: 11:06 a.m. Three views of the lumbar spine were obtained. Curvature and alignment is normal. Vertebral body heights and disc spaces are fairly well-maintained. No fracture or subluxation is identified. Calcific density just to the left of L2 vertebral body is noted, indeterminate. IMPRESSION: No acute bony abnormality is detected. Dictated by: Dictated on workstation # [id number]
--- NOTE | 2020-07-18 13:04 | Diagnostic Imaging Report ---
INDICATION: Back pain, fall. TIME OF EXAM: 11:03 a.m. Three views of the thoracic spine were obtained. Curvature and alignment is normal. Vertebral body heights appear to be well maintained. No acute compression fracture is seen. There is generalized thoracic spondylosis. Pedicles and paraspinous line are intact. IMPRESSION: Thoracic spondylosis. No acute bony abnormality is detected. Dictated by: Dictated on workstation # [id number]
== END ==
LOC: RAD 10:43
PROVIDERS: ATTEND Nurse Practitioner Family
DX: M47.814 Spondylosis without myelopathy or radiculopathy, thoracic region (principal); M47.812 Spondylosis without myelopathy or radiculopathy, cervical region
CPT/HCPCS: 72040; 72072; 72100

== ENCOUNTER 2020-10-14 08:58 | Outpatient (RCR) | payer OTHER ==
[~2020-10-14 08:58] MED LIST changes: -LISI-552 PO; +LISI20TA26 PO
== END 2020-10-19 | disposition home or self-care (01) ==
PROVIDERS: ATTEND Nurse Practitioner Family
DX: M54.5 Low back pain (principal); M54.2 Cervicalgia; M54.6 Pain in thoracic spine; W00.0XXA Fall on same level due to ice and snow, initial encounter

== ENCOUNTER 2021-02-13 08:00 | Outpatient (RCR) | payer BC | END 2021-04-07 | disposition home or self-care (01) | DX: M54.2 Cervicalgia (principal); M54.6 Pain in thoracic spine; M54.5 Low back pain; I10 Essential (primary) hypertension ==

== ENCOUNTER → 2021-10-01 | Outpatient (CLI) | payer BC | LOC: CARD 13:00 | PROVIDERS: ATTEND Internal Medicine Cardiovascular Disease | DX: I11.9 Hypertensive heart disease without heart failure (principal); I34.0 Nonrheumatic mitral (valve) insufficiency; I25.10 Atherosclerotic heart disease of native coronary artery without angina pectoris | CPT/HCPCS: 93306 ==